=== PATIENT | male | born 1965 | race African-American/Black ===

== ENCOUNTER 2016-09-10 13:25 | Inpatient (IN) | payer OTHER ==
[2016-09-10] MEDS ORDERED: LORAZEPAM CARPU-JECT 2 MG/ML DISP.SYRIN ONE (13:38)
[2016-09-10] MEDS ORDERED: diazePAM CARPU-JECT 10 MG/2 ML DISP.SYRIN ONE ×5 (13:42→16:08)
[2016-09-10] MEDS ORDERED: diazePAM CARPU-JECT 10 MG/2 ML DISP.SYRIN IM ONE (13:48)
--- NOTE | 2016-09-10 13:48 | PDOC ---
History of Present Illness - History of Present Illness Initial Comments: 09/10/16 14:36 The patient is a 51 year old male, with a significant past medical history of asthma, hypertension, seizure disorder (last episode 1 year ago), anxiety, and polysubstance abuse, who presents to the emergency department from [facility] for hypertension and mid-back pain s/p falling out of his chair today. As per ems, the patient's fall was witnessed and the patient denies hitting his head. The patient was admitted to [facility] for heroin, cocaine and alcohol detox this week. As per EMS, the patient was 190/80 in route to the ED today. Upon patient arrival, he was describing his pain to the RN when he began to actively seize. Allergies: NKDA Social history: alcohol, cocaine, and heroin abuse <Suma Montes - Last Filed: 09/10/16 18:37> <Patito Price - Last Filed: 09/12/16 10:21> - General Chief Complaint: Injury Stated Complaint: FALL Time Seen by Provider: 09/10/16 13:35 Past History <Suma Montes - Last Filed: 09/10/16 18:37> - Past Medical History Asthma: Yes (Pt is on MDI) Cardiac Disorders: No COPD: No Diabetes: No GI Disorders: No Disorders: No HTN: Yes (on meds.) Kidney Stones: No Suicide Attempt (Hx): No Seizures: Yes (pt's last seizure was 1 yr ago.) Thyroid Disease: No - Reproductive History Testicular Surgery: No - Psycho/Social/Smoking Cessation Hx Anxiety: Yes Suicidal Ideation: No Smoking History: Current every day smoker Have you smoked in the past 12 months: Yes Number of Cigarettes Smoked Daily: 20 Information on smoking cessation initiated: Yes 'Breaking Loose' booklet given: 09/10/16 Hx Alcohol Use: Yes Drug/Substance Use Hx: Yes Substance Use Type: Alcohol, Cocaine, Heroin Hx Substance Use Treatment: Yes (2015 UNKNOWN LOCATION) <Patito Price - Last Filed: 09/12/16 10:21> - Past Medical History Allergies/Adverse Reactions: Allergies Allergy/AdvReac Type Severity Reaction Status Date / Time shellfish derived Allergy Severe Rash Verified 09/10/16 13:30 Home Medications: Ambulatory Orders Albuterol Sulfate Inhaler - [Ventolin Hfa Inhaler -] 2 inh PO Q4H PRN 09/10/16 Clonidine HCl [Catapres -] 0.1 mg PO BID 09/10/16 Darunavir Ethanolate [Prezista -] 800 mg PO DAILY 09/10/16 Emtricitabine/Tenofovir [Truvada] 1 tab PO DAILY 09/10/16 Gabapentin [Neurontin -] 300 mg PO Q8H 09/10/16 Phenobarbital - 30 mg PO BID 09/10/16 Phenytoin Na Extended [Dilantin -] 300 mg PO DAILY 09/10/16 Ritonavir [Norvir -] 100 mg PO DAILY 09/10/16 Sulfamethoxazole/Trimethoprim [Bactrim Ds -] 1 tab PO DAILY 09/10/16 Review of Systems - Review of Systems Able to Perform ROS?: Yes Comments:: 09/10/16 14:36 GENERAL/CONSTITUTIONAL: No fever or chills. No weakness. HEAD, EYES, EARS, NOSE AND THROAT: No change in vision. No ear pain or discharge. No sore throat. CARDIOVASCULAR: No chest pain or shortness of breath. RESPIRATORY: No cough, wheezing, or hemoptysis. GASTROINTESTINAL: No nausea, vomiting, diarrhea or constipation. GENITOURINARY: No dysuria, frequency, or change in urination. MUSCULOSKELETAL: (+) centralized upper back pain. No joint or muscle swelling. No neck pain. SKIN: No rash NEUROLOGIC: No headache, vertigo, loss of consciousness, or change in strength/ sensation. ENDOCRINE: No increased thirst. No abnormal weight change. HEMATOLOGIC/LYMPHATIC: No anemia, easy bleeding, or history of blood clots. ALLERGIC/IMMUNOLOGIC: No hives or skin allergy. <Suma Montes - Last Filed: 09/10/16 18:37> *Physical Exam - Vital Signs Last Vital Signs Temp Pulse Resp BP Pulse Ox 98.3 F 70 22 157/97 98 09/10/16 13:30 09/10/16 13:30 09/10/16 13:30 09/10/16 13:30 09/10/16 13:30 <Suma Montes - Last Filed: 09/10/16 18:37> - Vital Signs Last Vital Signs Temp Pulse Resp BP Pulse Ox 98.3 F 70 22 157/97 98 09/10/16 13:30 09/10/16 13:30 09/10/16 13:30 09/10/16 13:30 09/10/16 13:30 - Physical Exam Comments: GENERAL: Actively seizing on my arrival in room. HEAD: No signs of trauma EYES: PERRLA, EOMI, sclera icteric, conjunctiva clear ENT: Auricles normal inspection, hearing grossly normal, nares patent, oropharynx clear without exudates. Foaming at the mouth. NECK: Normal ROM, supple, no lymphadenopathy, JVD, or masses LUNGS: Breath sounds equal, clear to auscultation bilaterally. No wheezes, and no crackles HEART: Regular rate and rhythm, normal S1 and S2, no murmurs, rubs or gallops ABDOMEN: Soft, nontender, normoactive bowel sounds. No guarding, no rebound. No masses. +Well-healed midline abdominal incision. EXTREMITIES: Normal range of motion, no edema. No clubbing or cyanosis. No cords, erythema, or tenderness. NEUROLOGICAL: Seizing. R sided gaze preference. SKIN: Warm, Dry, normal turgor, no rashes or lesions noted. <Patito Price - Last Filed: 09/12/16 10:21> ED Treatment Course - LABORATORY CBC & Chemistry Diagram: 09/10/16 13:50 09/10/16 16:35 - Medications Given in the ED: ED Medications Discontinued Medications Generic Name Dose Route Start Last Admin Trade Name Sita PRN Reason Stop Dose Admin Diazepam 10 mg 09/10/16 13:48 09/10/16 13:45 Valium Injection - IM 09/10/16 13:49 10 mg ONCE ONE Administration Diazepam 10 mg 09/10/16 13:49 09/10/16 14:00 Valium Injection - IVPUSH 09/10/16 13:50 10 mg ONCE ONE Administration Diazepam 10 mg 09/10/16 14:05 09/10/16 14:17 Valium Injection - IVPUSH 09/10/16 14:06 10 mg ONCE ONE Administration Diazepam 10 mg 09/10/16 14:21 09/10/16 14:25 Valium Injection - IVPUSH 09/10/16 14:22 10 mg ONCE ONE Administration <Suma Montes - Last Filed: 09/10/16 18:37> - LABORATORY CBC & Chemistry Diagram: 09/10/16 13:50 09/10/16 16:35 <Patito Price - Last Filed: 09/12/16 10:21> Medical Decision Making - Critical Care Time Total Critical Care Time (minutes): 45 Critical Care Statement: The care of this patient involved high complexity decision making to prevent further life threatening deterioration of the patient 's condition and/or to evalute & treat vital organ system(s) failure or risk of failure. - Medical Decision Making 09/10/16 14:51 Late entry. Patient arrived via EMS, sent by [facility] for elevated BP, did not take his medications for over 1 week. He has history of EtOH, cocaine, and heroin abuse. He had a seizure shortly after arriving in the ED. He did not have IV access, and he was combative in his post-ictal state. He was given valium 10 mg IM x2 with some improvement in combativeness, then an IV was successfully placed by RN to the L foot. After that, an additional 10 mg of valium was given IV. He is now slightly restless, but calm in the bed. Required [place] for confusion. Labs pending. Will require admission. 09/10/16 17:51 Pt written for dose of fosphenytoin, as prior records show he was on dilantin for history of seizure disorder. I added on a phenytoin level to the labs, it is undetectable. Etiology of seizure may be alcohol withdrawal vs SZ disorder with med noncompliance. Will continue benzos, as patient has a very high tolerance and was delirious on initial exam. Will admit to ICU, high risk for DTs. <Patito Price - Last Filed: 09/12/16 10:21> *DC/Admit/Observation/Transfer <Suma Montes - Last Filed: 09/10/16 18:37> - Discharge Dispostion Admit: Yes <Patito Price - Last Filed: 09/12/16 10:21> Diagnosis at time of Disposition: Delirium tremens, Seizure disorder Alcohol withdrawal Qualifiers: Complication of substance-induced condition: with delirium Qualified Code(s): F10.231 - Alcohol dependence with withdrawal delirium - Discharge Dispostion Condition at time of disposition: Critical
[2016-09-10] MEDS ORDERED: SODIUM CHLORIDE 1,000 ML IV STA (13:49)
[2016-09-10] MEDS ORDERED: diazePAM CARPU-JECT 10 MG/2 ML DISP.SYRIN IVPUSH ONE ×4 (13:49→16:08)
[2016-09-10 14:27] LABS: BASOPHIL 1.2 % (0-2.0); EOSINOPHIL 0.6 % (0-4.5); MCHC 33.2 g/dl (32.0-35.9); MEAN CELL VOLUME 99.4 fl (80-96); MEAN PLT VOLUME 9.1 fl (7.5-11.1); NEUTROPHILS 32.4 % (42.8-82.8); PLATELET COUNT 248 K/MM3 (134-434); RDW 13.6 % (11.9-15.9); WHITE BLOOD COUNT 2.6 K/mm3 (4.0-10.0)
[2016-09-10 14:42] LABS: INR 1.04 (0.82-1.09); PROTHROMBIN TIME (PATIENT) 11.4 SEC (9.98-11.88)
[2016-09-10 15:57] LABS: URINE APPEARANCE CLEAR; URINE BILIRUBIN NEGATIVE (NEGATIVE); URINE BLOOD NEGATIVE (NEGATIVE); URINE COLOR YELLOW; URINE GLUCOSE (UA) 1+ (NEGATIVE); URINE KETONE TRACE (NEGATIVE); URINE LEUK ESTERASE NEGATIVE (NEGATIVE); URINE NITRITE NEGATIVE (NEGATIVE); URINE UROBILINOGEN 2.0 E.U/dl E.U./dl (0.2-1.0)
[2016-09-10 16:00] LABS: URINE PROTEIN 1+ (NEGATIVE)
[2016-09-10 16:03] LABS: URINE MUCUS RARE; URINE RBC 2 /hpf (0-3); URINE WBC 1 /hpf (3-5)
[2016-09-10 16:12] LABS: URINE MARIJUANA THC NEGATIVE ng/ml (CUTOFF=50)
[2016-09-10] MEDS ORDERED: FOLIC ACID INJECTION - 1 MG, THIAMINE HCL 100 MG, MULTIVIT INJECTION ADULT 10 ML in SOD... IVPB ONE (17:07)
[2016-09-10 17:41] LABS: ALBUMIN 3.2 g/dl (3.4-5.0); ALK PHOS 138 U/L (45-117); ANION GAP 6 (8-16); BILIRUBIN,TOTAL 0.5 mg/dL (0.2-1.0); CALCIUM 8.3 mg/dL (8.5-10.1); CO2 30 mmol/L (21-32); COCKROFT - GAULT 113.39; CREATININE 0.9 mg/dL (0.7-1.3); GLUCOSE,RANDOM 78 mg/dL (74-106); SGOT/AST 39 U/L (15-37); SGPT/ALT 38 U/L (12-78); TOT PROT 7.3 g/dl (6.4-8.2)
[2016-09-10] MEDS ORDERED: FOSPHENYTOIN SODIUM 1,000 MG in SODIUM CHLORIDE 100 ML IVPB ONE (17:48)
--- NOTE | 2016-09-10 19:18 | HP ---
CHIEF COMPLAINT: seizures, polysubstance PCP: none HISTORY OF PRESENT ILLNESS: 51 yr old man with hx of seizure d/o, ETOH/heroin/cocaine abuse, asthma, HIV, Hep C referred from [facility] for elevated BP and who sustained a seizure in the ED. Says he was going to detox when he was brought here. Last drink 2 days ago, last clonidine use 2 days ago. Says he takes phenobarbital daily. denies fever, cough, chest pain, sob, headache, abdominal pain. Patient is lethargic and difficult to keep aroused. Chart reviewed for further information. ER course was notable for: (1) seizure - 1 episode treated with valium 50mg IVPB (2) head CT negative for hemorrhage/mass PAST MEDICAL HISTORY: Seizure disorder HIV asthma HIV (dxed 1996) Hep C Polysubstance abuse: cocaine, heroin, etoh Neuropathy PAST SURGICAL HISTORY: Social History: Smoking: current everyday smoker, 20/cigs per day Alcohol: ETOH abuse, Drugs: cocaine (smoking), heroin(inhalation), etoh Family History: Allergies shellfish derived Allergy (Severe, Verified 09/10/16 13:30) Rash HOME MEDICATIONS: Home Medications Last prescribed 08/21/16 by Angela Ly MD (ID @ [facility]) - Truvada 200-300 mg tablet 1tab po qd - Prezista 800mg 1t po qd - Norvir 100mg 1t po qd - Flomax extended release 1C Last prescribed 07/18/16 by Angela Ly MD - Lisinopril 10mg po 1t qd - Gabapentin 300mg po 1c BID - Albuterol sulfate 90mcg 2puffs QID prn - Zantac 300mg po 1t BID - Bactrim DS 800-160mg tablet 1t po qd - ambien 10mg tablet po q hs prn Last prescribed 07/16/2016 by Angela Busch MD - phenobarbital 32.4mg 1t po BID - dilantin extended 100mg 5capsules po qd Medication Instructions Recorded Albuterol Sulfate Inhaler - 2 inh PO Q4H PRN 09/10/16 [Ventolin Hfa Inhaler -] Clonidine HCl [Catapres -] 0.1 mg PO BID 09/10/16 Darunavir Ethanolate [Prezista -] 800 mg PO DAILY 09/10/16 Emtricitabine/Tenofovir [Truvada] 1 tab PO DAILY 09/10/16 Gabapentin [Neurontin -] 300 mg PO Q8H 09/10/16 Phenobarbital - 30 mg PO BID 09/10/16 Phenytoin Na Extended [Dilantin -] 300 mg PO DAILY 09/10/16 Ritonavir [Norvir -] 100 mg PO DAILY 09/10/16 Sulfamethoxazole/Trimethoprim 1 tab PO DAILY 09/10/16 [Bactrim Ds -] REVIEW OF SYSTEMS CONSTITUTIONAL: Absent: fever, chills, HEENT: Absent: rhinorrhea, nasal congestion, throat pain, throat swelling, difficulty swallowing, mouth swelling, CARDIOVASCULAR: Absent: chest pain, palpitations, irregular heart rate, lightheadedness RESPIRATORY: Absent: cough, shortness of breath, GASTROINTESTINAL: Absent: abdominal pain, abdominal distension, nausea, vomiting, diarrhea, constipation, GENITOURINARY: Absent: dysuria PHYSICAL EXAMINATION Vital Signs - 24 hr 09/10/16 18:00 Pulse Rate [ 68 Radial] Respiratory 20 Rate Blood Pressure 161/99 [Left Arm] O2 Sat by Pulse 100 Oximetry (%) GENERAL: lethargic,oriented to person/place. malodorous. HEAD: Normal with no signs of trauma. EYES: Pupils equal, round and reactive to light - sluggish, extraocular movements intact, sclera anicteric, conjunctiva clear. No lid lag. EARS, NOSE, THROAT: Ears normal, nares patent, oropharynx clear without exudates. Moist mucous membranes. no oral lesions, no thrush NECK: Normal range of motion, supple without lymphadenopathy, JVD, or masses. LUNGS: Breath sounds equal, rales right lower base, clear left lung. No wheezes , and no crackles. No accessory muscle use. HEART: Regular rate and rhythm, normal S1 and S2 without murmur, rub or gallop. ABDOMEN: Soft, nontender, not distended, normoactive bowel sounds, no guarding, no rebound. well-healing laparotomy scar. MUSCULOSKELETAL: Normal range of motion at all joints. able to move all joints spotaneously. UPPER EXTREMITIES: 2+ pulses, warm, well-perfused. No cyanosis. No clubbing. No peripheral edema. LOWER EXTREMITIES: 2+ pulses, warm, well-perfused. No calf tenderness. No peripheral edema. NEUROLOGICAL: Cranial nerves 2,3,4,5,6,9 intact. Normal speech. lethargic, difficult to keep aroused. facial symmetry. babinski negative SKIN: Warm, dry, normal turgor, no rashes or lesions noted, normal capillary refill. Laboratory Tests 09/10/16 09/10/16 09/10/16 13:50 13:50 13:50 WBC 2.6 L RBC 4.04 Hgb 13.4 Hct 40.2 MCV 99.4 H MCHC 33.2 RDW 13.6 Plt Count 248 MPV 9.1 Neutrophils % 32.4 L Lymphocytes % 53.0 H Monocytes % 12.8 H Eosinophils % 0.6 Basophils % 1.2 INR 1.04 Sodium Cancelled Potassium Cancelled Chloride Cancelled Carbon Dioxide Cancelled Anion Gap Cancelled BUN Cancelled Creatinine Cancelled Creat Clearance w eGFR Cancelled Random Glucose Cancelled Calcium Cancelled Magnesium Total Bilirubin Cancelled AST Cancelled ALT Cancelled Alkaline Phosphatase Cancelled Total Protein Cancelled Albumin Cancelled Lipase Cancelled Urine Color Urine Appearance Urine pH Ur Specific Evans Urine Protein Urine Glucose (UA) Urine Ketones Urine Blood Urine Nitrite Urine Bilirubin Urine Urobilinogen Ur Leukocyte Esterase Urine RBC Urine WBC Urine Mucus Opiates Screen Methadone Screen Barbiturate Screen Phenytoin Phencyclidine Screen Ur Amphetamines Screen MDMA (Ecstasy) Screen Benzodiazepines Screen Cocaine Screen U Marijuana (THC) Screen Alcohol, Quantitative Blood Type Antibody Screen Spec Expiration Date 09/10/16 09/10/16 09/10/16 13:50 13:50 14:37 WBC RBC Hgb Hct MCV MCHC RDW Plt Count MPV Neutrophils % Lymphocytes % Monocytes % Eosinophils % Basophils % INR Sodium Potassium Chloride Carbon Dioxide Anion Gap BUN Creatinine Creat Clearance w eGFR Random Glucose Calcium Magnesium Total Bilirubin AST ALT Alkaline Phosphatase Total Protein Albumin Lipase Urine Color Yellow Urine Appearance Clear Urine pH 6.0 Ur Specific Evans 1.024 Urine Protein 1+ H Urine Glucose (UA) 1+ H Urine Ketones Trace H Urine Blood Negative Urine Nitrite Negative Urine Bilirubin Negative Urine Urobilinogen 2.0 e.u/dl Ur Leukocyte Esterase Negative Urine RBC 2 Urine WBC 1 Urine Mucus Rare Opiates Screen Methadone Screen Barbiturate Screen Phenytoin Phencyclidine Screen Ur Amphetamines Screen MDMA (Ecstasy) Screen Benzodiazepines Screen Cocaine Screen U Marijuana (THC) Screen Alcohol, Quantitative Cancelled Blood Type Cancelled Antibody Screen Cancelled Spec Expiration Date Cancelled 09/10/16 09/10/16 09/10/16 14:37 16:35 16:35 WBC RBC Hgb Hct MCV MCHC RDW Plt Count MPV Neutrophils % Lymphocytes % Monocytes % Eosinophils % Basophils % INR Sodium 139 Potassium 3.8 Chloride 103 Carbon Dioxide 30 Anion Gap 6 L BUN 14 Creatinine 0.9 Creat Clearance w eGFR > 60 Random Glucose 78 Calcium 8.3 L Magnesium Total Bilirubin 0.5 AST 39 H ALT 38 Alkaline Phosphatase 138 H Total Protein 7.3 Albumin 3.2 L Lipase Urine Color Urine Appearance Urine pH Ur Specific Evans Urine Protein Urine Glucose (UA) Urine Ketones Urine Blood Urine Nitrite Urine Bilirubin Urine Urobilinogen Ur Leukocyte Esterase Urine RBC Urine WBC Urine Mucus Opiates Screen Positive Methadone Screen Negative Barbiturate Screen Positive Phenytoin Phencyclidine Screen Negative Ur Amphetamines Screen Negative MDMA (Ecstasy) Screen Negative Benzodiazepines Screen Positive Cocaine Screen Positive U Marijuana (THC) Screen Negative Alcohol, Quantitative < 5.0 Blood Type Antibody Screen Spec Expiration Date 09/10/16 09/10/16 17:15 17:15 WBC RBC Hgb Hct MCV MCHC RDW Plt Count MPV Neutrophils % Lymphocytes % Monocytes % Eosinophils % Basophils % INR Sodium Potassium Chloride Carbon Dioxide Anion Gap BUN Creatinine Creat Clearance w eGFR Random Glucose Calcium Magnesium 1.9 Total Bilirubin AST ALT Alkaline Phosphatase Total Protein Albumin Lipase Urine Color Urine Appearance Urine pH Ur Specific Evans Urine Protein Urine Glucose (UA) Urine Ketones Urine Blood Urine Nitrite Urine Bilirubin Urine Urobilinogen Ur Leukocyte Esterase Urine RBC Urine WBC Urine Mucus Opiates Screen Methadone Screen Barbiturate Screen Phenytoin < 2.5 L Phencyclidine Screen Ur Amphetamines Screen MDMA (Ecstasy) Screen Benzodiazepines Screen Cocaine Screen U Marijuana (THC) Screen Alcohol, Quantitative Blood Type Antibody Screen Spec Expiration Date ASSESSMENT/PLAN: 51 yr old man with polystance use, HIV, seizure disorder with seizure episode in ED admitted to ICU for further evaluation. - corrected ca+ : 8.9 #Seizure d/o; delirium tremons vs acute seizure episode as phenytoin level subtherapeutic - Ativan 2mg IV prn - Valium 10mg IVpush q1h prn - Dilantin extended release 100mg 5 capsules po daily - phenobarbital 32.4mg 1 tablet po bid - Gabapentin 300mg po 1 capsule BID - seizure precautions, banana bag #HIV - consider CD4 count/viral load/ ID consult - Truvada 200-300 mg tablet 1 tablet po daily - Prezista 800mg 1t po qd - Norvir 100mg 1t po qd - bactrim DS 500-160mg 1 tablet po daily #HTN - lisinopril 10mg po 1 tablet po daily #Asthma - albuterol sulfate 90mcg 2 puffs QID prn #DVT - scd's #Diet: regular Visit type - Emergency Visit Emergency Visit: Yes ED Registration Date: 09/10/16 Care time: The patient presented to the Emergency Department on the above date and was hospitalized for further evaluation of their emergent condition. - New Patient This patient is new to me today: Yes Date on this admission: 09/10/16 - Critical Care Critical Care patient: No
--- NOTE | 2016-09-10 20:13 | PN ---
<Alesha Bolivar - Last Filed: 09/10/16 20:12> Teaching Attending Note Name of Resident: Toy Felix <Daisy Fernandez - Last Filed: 09/11/16 01:41> Teaching Attending Note ATTENDING PHYSICIAN STATEMENT I saw and evaluated the patient. I reviewed the resident's note and discussed the case with the resident. I agree with the resident's findings and plan as documented. SUBJECTIVE: 51 yo M presents fro [facility] with seizure in ED, HTN, and mid-back pain s/p mechanical fall earlier today. Documentation reviewed and as epr Hx taken from ED and resident, notes patient admitted for seizure and found to have urine tox positive for polysubstance including cocaine benzos and barbiturates. Patient denies head trauma and LOC in ED. Patient states in ED he was recently admitted to [facility] for heroin, cocaine and ETOH detox. PMHx: asthma, hypertension, seizure disorder (last prior episode 1 year ago), anxiety, HIV, HEP C and polysubstance abuse OBJECTIVE: Last Vital Signs Temp Pulse Resp BP Pulse Ox 98.5 F 74 20 136/79 100 09/10/16 21:55 09/10/16 21:55 09/10/16 22:15 09/10/16 21:55 09/10/16 22:15 GENERAL: Patient is somnolent, in no acute distress HEENT: HEENT: normocephalic, atraumatic LUNGS: Within normal limits, Right Lower Lobe rales HEART: Regular rate and rhythm. ABDOMEN: Soft, nontender, normoactive bowel sounds. No guarding, no rebound. No masses. Surgical laparotomy scar. EXTREMITIES: Normal inspection, no edema. No clubbing or Cyanosis. NEUROLOGICAL: No gross neurological deficits. SKIN: Warm, Dry, normal turgor, no rashes or lesions noted. CBCD WBC 2.6 K/mm3 (4.0-10.0) L 09/10/16 13:50 RBC 4.04 M/mm3 (4.00-5.60) 09/10/16 13:50 Hgb 13.4 GM/dL (11.7-16.9) 09/10/16 13:50 Hct 40.2 % (35.4-49) 09/10/16 13:50 MCV 99.4 fl (80-96) H 09/10/16 13:50 MCHC 33.2 g/dl (32.0-35.9) 09/10/16 13:50 RDW 13.6 % (11.9-15.9) 09/10/16 13:50 Plt Count 248 K/MM3 (134-434) 09/10/16 13:50 MPV 9.1 fl (7.5-11.1) 09/10/16 13:50 CMP Sodium 139 mmol/L (136-145) 09/10/16 16:35 Potassium 3.8 mmol/L (3.5-5.1) 09/10/16 16:35 Chloride 103 mmol/L (98-107) 09/10/16 16:35 Carbon Dioxide 30 mmol/L (21-32) 09/10/16 16:35 Anion Gap 6 (8-16) L 09/10/16 16:35 BUN 14 mg/dL (7-18) 09/10/16 16:35 Creatinine 0.9 mg/dL (0.7-1.3) 09/10/16 16:35 Creat Clearance w eGFR > 60 (>60) 09/10/16 16:35 Calcium 8.3 mg/dL (8.5-10.1) L 09/10/16 16:35 Total Bilirubin 0.5 mg/dL (0.2-1.0) 09/10/16 16:35 AST 39 U/L (15-37) H 09/10/16 16:35 ALT 38 U/L (12-78) 09/10/16 16:35 Alkaline Phosphatase 138 U/L (45-117) H 09/10/16 16:35 Total Protein 7.3 g/dl (6.4-8.2) 09/10/16 16:35 Albumin 3.2 g/dl (3.4-5.0) L 09/10/16 16:35 Assessment and Plan Admitted to ICU for seizures noncompliant with medication possibly secondary to DT. -Ativan PRN -Valium PRN -CT head -Dilantin level -continue Dilantin HIV -continue Norvir, Truvada, and Prezista HTN -continue clonidine 0.1 mg BID HIV/AIDS -bactrim 1 tablet daily -Get CD4 count Documentation prepared by Daisy Fernandez, acting as director global medical affairs for Alesha Bolivar M.D.
[2016-09-10] MEDS ORDERED: CHLORHEXIDINE GLUCONATE 4% CLEANSER FOR DECOLONIZATION TP SCH (22:00)
--- NOTE | 2016-09-10 22:18 | CONSULT ---
Consult - text type - Consultation Consultation Note: PULM/CCM Pt seen and examined in ICU CC: seizure, poly pharm withdrawal HPI: Mr Russ is a 51 y/o man with hx of HIV (on ARV, unk last CD4/VL) HTN, Seizure disorder, Polysubstance abuse (heroin, cocaine, ETOH) now admitted for seizure in ED c/f acute ETOH withdrawal. Pt was admitted to [facility] for detox on Morning of 09/09. He used cocaine and heroin just prior to going in to [facility]. While he was in detox he fell out of chair without significant trauma or striking head. He was noted to have elevated BP and was sent in to ED via EMS. Of note pt relates he was note given his clonidine while there. Shortly after arrival in ED pt had short GTC seizure. He was post ictal and combative for which her received multple doses of benzodiazipines (ativan and valium). He required physical restraint with jesus vest as well. His mental status improved. CT head was unrevealing. Pt was transferred to ICU for concern for ETOH withdrawal/DT. PMHX: Htn HIV on ARV (Dr Guevara in [place]) polysubstance abuse seizure disorder PSHX: had significant abd surgical scars but cannot relate what surgery he had...? trauma? Soc: not working, Polysubstance abuse Ambulatory Orders Albuterol Sulfate Inhaler - [Ventolin Hfa Inhaler -] 2 inh PO Q4H PRN 09/10/16 Clonidine HCl [Catapres -] 0.1 mg PO BID 09/10/16 Darunavir Ethanolate [Prezista -] 800 mg PO DAILY 09/10/16 Emtricitabine/Tenofovir [Truvada] 1 tab PO DAILY 09/10/16 Gabapentin [Neurontin -] 300 mg PO Q8H 09/10/16 Phenobarbital - 30 mg PO BID 09/10/16 Phenytoin Na Extended [Dilantin -] 300 mg PO DAILY 09/10/16 Ritonavir [Norvir -] 100 mg PO DAILY 09/10/16 Sulfamethoxazole/Trimethoprim [Bactrim Ds -] 1 tab PO DAILY 09/10/16 Active Medications Chlorhexidine Gluconate (Hibiclens For Decolonization -) 1 applic TP HS TERRENCE Folic Acid 1 mg/ Thiamine HCl 100 mg/ Multivitamins/Minerals 10 ml/ Sodium Chloride 1,000 mls @ 125 mls/hr IVPB ONCE ONE Stop: 09/11/16 01:06 Last Admin: 09/10/16 18:15 Dose: 125 mls/hr Mupirocin (Bactroban Ointment (For Decolonization) -) 1 applic NS BID TERRENCE Stop: 09/15/16 21:59 PE: Neuro: awake, alert, oriented HEENT: PERRL, EOMI PULM: no distress, clear CV: RRR, no m/r/g appreciated ABD; soft, NT, ND, + BS, well healed surg scars EXT: w/w/p, + pulses Skin: no rash CIWA score currently 1 A/ 51 y/o man with hx of polysubstance abuse undergoing detox at [facility] sent to ED for HTN, withnessed GTC sz c/f acute withdrawal P/ -valium PRN for CIWA > 8 -restart AE, ARV in am -restart clonidine in am -reg diet -DVT prophy -if remains without signs of significant withdrawal can go to floor in am Rivera Martinez ACNP [id number]
[2016-09-10] MEDS ORDERED: diazePAM CARPU-JECT 10 MG/2 ML DISP.SYRIN IVPUSH PRN (22:41)
[2016-09-10 22:47] VITALS: BMI 29.9
[2016-09-10] MEDS: MUPIROCIN 2% TOPICAL OINTMENT FOR DECOLONIZATION NS SCH (23:36)
[2016-09-11] MEDS ORDERED: LORAZEPAM CARPU-JECT 2 MG/ML DISP.SYRIN IVPUSH PRN ×2 (02:10→14:05)
[2016-09-11] MEDS ORDERED: ALBUTEROL SO4 6.7 GM HFA INHALER IH PRN ×2 (04:29→14:05)
[2016-09-11] MEDS ORDERED: cloNIDine HCL 0.1 MG TABLET PO SCH (07:00)
[2016-09-11] MEDS ORDERED: PT OWN MED DRAWER 7, Y5N ONE (09:34)
[2016-09-11] MEDS: MUPIROCIN 2% TOPICAL OINTMENT FOR DECOLONIZATION NS SCH ×2 (09:43→22:12)
[2016-09-11] MEDS ORDERED: GABAPENTIN 300 MG CAPSULE (FP) PO SCH (10:00)
[2016-09-11] MEDS ORDERED: PHENYTOIN NA EXTENDED 100 MG CAPSULE (FP) PO SCH (10:00)
[2016-09-11] MEDS ORDERED: RITONAVIR 100 MG TABLET PO SCH (10:00)
[2016-09-11] MEDS ORDERED: SULFAMETHOXAZOLE/TRIMETHOPRIM 800MG/160MG D.S. TABLET PO SCH (10:00)
[2016-09-11] MEDS ORDERED: DARUNAVIR ETHANOLATE 800 MG TAB PO SCH (10:00)
[2016-09-11] MEDS ORDERED: PHENobarbital 30 MG TABLET PO SCH (10:00)
[2016-09-11] MEDS ORDERED: EMTRICITABINE 200MG/TENOFOVIR 300MG PO SCH (10:00)
--- NOTE | 2016-09-11 12:30 | EKG ---
Test Reason : Blood Pressure : / mmHG Vent. Rate : 079 BPM Atrial Rate : 079 BPM P-R Int : 148 ms QRS Dur : 090 ms QT Int : 398 ms P-R-T Axes : 044 -22 014 degrees QTc Int : 456 ms NORMAL SINUS RHYTHM CANNOT RULE OUT ANTERIOR INFARCT , AGE UNDETERMINED ABNORMAL ECG NO PREVIOUS ECGS AVAILABLE Confirmed by DARNELL CHU MD ([id number]) on 09/11/2016 12:30:16 PM Referred By: Confirmed By:DARNELL CHU MD
--- NOTE | 2016-09-11 13:38 | PN ---
Teaching Attending Note Name of Resident: Sharan Lowery ATTENDING PHYSICIAN STATEMENT I saw and evaluated the patient. I reviewed the resident's note and discussed the case with the resident. I agree with the resident's findings and plan as documented. SUBJECTIVE: Pt seen and examined in the ICU. No events overnight, no seizures noted. OBJECTIVE: Last Vital Signs Temp Pulse Resp BP Pulse Ox 98.5 F 82 18 139/99 100 09/11/16 06:00 09/11/16 12:00 09/11/16 12:00 09/11/16 12:00 09/10/16 22:15 Intake & Output 09/08/16 09/09/16 09/10/16 09/11/16 23:59 23:59 23:59 23:59 Intake Total 240 480 Output Total 300 1050 Balance -60 -570 Weight 191 lb 8 oz Gen: NAD at rest Heart: RRR Lung: decreased breath sounds at the bases Abd: soft, nontender Ext: no edema CBC, BMP 09/10/16 13:50 09/10/16 16:35 Active Medications Albuterol Sulfate (Ventolin Hfa Inhaler -) 2 puff IH Q4H PRN PRN Reason: ASTHMA Chlorhexidine Gluconate (Hibiclens For Decolonization -) 1 applic TP HS [facility] Last Admin: 09/10/16 23:36 Dose: 1 applic Clonidine (Catapres -) 0.1 mg PO DAILY@0700 [facility] Last Admin: 09/11/16 06:19 Dose: 0.1 mg Darunavir (Prezista -) 800 mg PO DAILY [facility] Diazepam (Valium Injection -) 10 mg IVPUSH Q1H PRN PRN Reason: AGITATION Emtricitabine/Tenofovir (Truvada) 1 tab PO DAILY [facility] Last Admin: 09/11/16 09:41 Dose: 1 tab Gabapentin (Neurontin -) 300 mg PO BID [facility] Last Admin: 09/11/16 09:40 Dose: 300 mg Lorazepam (Ativan Injection -) 2 mg IVPUSH Q6H PRN PRN Reason: Seizure Mupirocin (Bactroban Ointment (For Decolonization) -) 1 applic NS BID [facility] Stop: 09/15/16 21:59 Last Admin: 09/11/16 09:43 Dose: 1 applic Phenobarbital (Phenobarbital -) 30 mg PO BID [facility] Last Admin: 09/11/16 09:39 Dose: 30 mg Phenytoin Sodium (Dilantin -) 500 mg PO DAILY [facility] Last Admin: 09/11/16 09:40 Dose: 500 mg Ritonavir (Norvir -) 100 mg PO DAILY [facility] Last Admin: 09/11/16 09:40 Dose: 100 mg Trimethoprim/Sulfamethoxazole (Bactrim Ds -) 1 each PO DAILY [facility] Last Admin: 09/11/16 09:42 Dose: 1 each ASSESSMENT AND PLAN: Breakthrough Seizure Polysubstance Abuse r/o Alcohol Withdrawal HIV Hep C HTN - continue antiepileptics - seizure precautions - addiction consult - monitor for withdrawal symptoms - continue ART - can monitor on floor
--- NOTE | 2016-09-11 13:41 | PN ---
Physical Exam: SUBJECTIVE: Patient seen and examined Pt is awake, alert and fully oriented No s/s of acute distress no dizziness or confusion No focal weakness no chest pain, palpitation OBJECTIVE: Vital Signs Period Temp Pulse Resp BP Sys/Lala Pulse Ox Last 24 Hr 98.2 F-98.5 F 68-82 14-20 122-161/79-107 100-100 GENERAL: The patient is awake, alert, and fully oriented, in no acute distress. HEAD: Normal with no signs of trauma. NECK: Trachea midline, full range of motion, supple. LUNGS: Breath sounds equal, clear to auscultation bilaterally, no wheezes, no crackles, no accessory muscle use. HEART: Regular rate and rhythm, S1, S2 without murmur, rub or gallop. ABDOMEN: Soft, nontender, nondistended, normoactive bowel sounds, no guarding, no rebound, no hepatosplenomegaly, no masses. EXTREMITIES: 2+ pulses, warm, well-perfused, no edema. NEUROLOGICAL:. Normal speech, gait not observed. No tremors PSYCH: Normal mood, normal affect. SKIN: Warm, dry, normal turgor, no rashes or lesions noted Active Medications Generic Name Dose Route Start Last Admin Trade Name Freq PRN Reason Stop Dose Admin Albuterol Sulfate 2 puff 09/11/16 04:29 Ventolin Hfa Inhaler - IH Q4H PRN ASTHMA Chlorhexidine Gluconate 1 applic 09/10/16 22:00 09/10/16 23:36 Hibiclens For Decolonization - TP 1 applic HS [facility] Administration Clonidine 0.1 mg 09/11/16 07:00 09/11/16 06:19 Catapres - PO 0.1 mg DAILY@0700 [facility] Administration Darunavir 800 mg 09/11/16 10:00 Prezista - PO DAILY [facility] Diazepam 10 mg 09/10/16 22:41 Valium Injection - IVPUSH Q1H PRN AGITATION Emtricitabine/Tenofovir 1 tab 09/11/16 10:00 09/11/16 09:41 Truvada PO 1 tab DAILY [facility] Administration Gabapentin 300 mg 09/11/16 10:00 09/11/16 09:40 Neurontin - PO 300 mg BID [facility] Administration Lorazepam 2 mg 09/11/16 02:10 Ativan Injection - IVPUSH Q6H PRN Seizure Mupirocin 1 applic 09/10/16 22:00 09/11/16 09:43 Bactroban Ointment (For Decolonization) - NS 09/15/16 21:59 1 applic BID [facility] Administration Phenobarbital 30 mg 09/11/16 10:00 09/11/16 09:39 Phenobarbital - PO 30 mg BID [facility] Administration Phenytoin Sodium 500 mg 09/11/16 10:00 09/11/16 09:40 Dilantin - PO 500 mg DAILY [facility] Administration Ritonavir 100 mg 09/11/16 10:00 09/11/16 09:40 Norvir - PO 100 mg DAILY [facility] Administration Trimethoprim/Sulfamethoxazole 1 each 09/11/16 10:00 09/11/16 09:42 Bactrim Ds - PO 1 each DAILY [facility] Administration ASSESSMENT/PLAN: 51 year old male with pmh of polysubstance abuse, HIV , Seizure disorder from [place] is admitted s/p seizure. Seizure likely due to non compliance r/o alcohol withdrawal/Delirium tremens Last alcohol drink, cocaine and heroin use was 3 days ago CIWA score 0 No librium taper needed Ativan 2 mg Prn IV Valium 10 mg IV prn Dilantin 500mg po daily Phenobarbital 30mg po daily gabapentin 300mg po BID seizure precaution Follow Dilantin level On clonidine PO daily for Opiod withdrawal Consult Dr Curry HIV Pt restarted on HAART Continue Truvada, prezista, Norvir Continue bactrim 1 tab PO daily Asthma Albuterol PRN HTN Lisinoprill 10mg PO daily FEN Fluid: none Electrolytes: none Nutrition: regular diet DVT prophylaxis: SCD Disposition: Transfer to floor, watch overnight no s/s of withdrawal Visit type - Emergency Visit Emergency Visit: Yes ED Registration Date: 09/10/16 Care time: The patient presented to the Emergency Department on the above date and was hospitalized for further evaluation of their emergent condition. - New Patient This patient is new to me today: Yes Date on this admission: 09/11/16 - Critical Care Critical Care patient: Yes Total Critical Care Time (in minutes): 35 Critical Care Statement: The care of this patient involved high complexity decision making to prevent further life threatening deterioration of the patient 's condition and/or to evalute & treat vital organ system(s) failure or risk of failure. - Discharge Referral Referred to [facility] Med P.C.: No
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
[2016-09-11] MEDS ORDERED: METHADONE HCL 10 MG TABLET (FOR DETOX USE ONLY) PO ONE ×2 (14:23→17:00)
[2016-09-11] MEDS ORDERED: diazePAM 5 MG TABLET PO ONE ×2 (14:23→17:00)
--- NOTE | 2016-09-11 14:32 | PN ---
[facility] Progress Note (SOAP) Subjective: Pt. was transferred from [facility] admissions to ED at [facility] because he fell and BP was 201/106. While in ED he had a seizure and was admitted. Objective: 09/11/16 14:30 Vital Signs - 8 hr 09/11/16 09/11/16 08:00 12:00 Pulse Rate 78 82 Respiratory 18 18 Rate Blood Pressure 144/98 139/99 Laboratory Last Values WBC 2.6 K/mm3 (4.0-10.0) L 09/10/16 13:50 RBC 4.04 M/mm3 (4.00-5.60) 09/10/16 13:50 Hgb 13.4 GM/dL (11.7-16.9) 09/10/16 13:50 Hct 40.2 % (35.4-49) 09/10/16 13:50 MCV 99.4 fl (80-96) H 09/10/16 13:50 MCHC 33.2 g/dl (32.0-35.9) 09/10/16 13:50 RDW 13.6 % (11.9-15.9) 09/10/16 13:50 Plt Count 248 K/MM3 (134-434) 09/10/16 13:50 MPV 9.1 fl (7.5-11.1) 09/10/16 13:50 Neutrophils % 32.4 % (42.8-82.8) L 09/10/16 13:50 Lymphocytes % 53.0 % (8-40) H 09/10/16 13:50 Monocytes % 12.8 % (3.8-10.2) H 09/10/16 13:50 Eosinophils % 0.6 % (0-4.5) 09/10/16 13:50 Basophils % 1.2 % (0-2.0) 09/10/16 13:50 INR 1.04 (0.82-1.09) 09/10/16 13:50 Sodium 139 mmol/L (136-145) 09/10/16 16:35 Potassium 3.8 mmol/L (3.5-5.1) 09/10/16 16:35 Chloride 103 mmol/L (98-107) 09/10/16 16:35 Carbon Dioxide 30 mmol/L (21-32) 09/10/16 16:35 Anion Gap 6 (8-16) L 09/10/16 16:35 BUN 14 mg/dL (7-18) 09/10/16 16:35 Creatinine 0.9 mg/dL (0.7-1.3) 09/10/16 16:35 Creat Clearance w eGFR > 60 (>60) 09/10/16 16:35 Random Glucose 78 mg/dL (74-106) 09/10/16 16:35 Calcium 8.3 mg/dL (8.5-10.1) L 09/10/16 16:35 Magnesium 1.9 mg/dL (1.8-2.4) 09/10/16 17:15 Total Bilirubin 0.5 mg/dL (0.2-1.0) 09/10/16 16:35 AST 39 U/L (15-37) H 09/10/16 16:35 ALT 38 U/L (12-78) 09/10/16 16:35 Alkaline Phosphatase 138 U/L (45-117) H 09/10/16 16:35 Total Protein 7.3 g/dl (6.4-8.2) 09/10/16 16:35 Albumin 3.2 g/dl (3.4-5.0) L 09/10/16 16:35 Lipase Cancelled 09/10/16 13:50 Urine Color Yellow 09/10/16 14:37 Urine Appearance Clear 09/10/16 14:37 Urine pH 6.0 (5.0-8.0) 09/10/16 14:37 Ur Specific [place] 1.024 (1.001-1.035) 09/10/16 14:37 Urine Protein 1+ (NEGATIVE) H 09/10/16 14:37 Urine Glucose (UA) 1+ (NEGATIVE) H 09/10/16 14:37 Urine Ketones Trace (NEGATIVE) H 09/10/16 14:37 Urine Blood Negative (NEGATIVE) 09/10/16 14:37 Urine Nitrite Negative (NEGATIVE) 09/10/16 14:37 Urine Bilirubin Negative (NEGATIVE) 09/10/16 14:37 Urine Urobilinogen 2.0 e.u/dl E.U./dl (0.2-1.0) 09/10/16 14:37 Ur Leukocyte Esterase Negative (NEGATIVE) 09/10/16 14:37 Urine RBC 2 /hpf (0-3) 09/10/16 14:37 Urine WBC 1 /hpf (3-5) 09/10/16 14:37 Urine Mucus Rare 09/10/16 14:37 Opiates Screen Positive ng/ml (MJNAGB=352) 09/10/16 14:37 Methadone Screen Negative ng/ml (UUMVBL=185) 09/10/16 14:37 Barbiturate Screen Positive ng/ml (ZXUIIO=709) 09/10/16 14:37 Phenytoin < 2.5 ug/ml (10.0-20.0) L 09/10/16 17:15 Phencyclidine Screen Negative ng/ml (CUTOFF=25) 09/10/16 14:37 Ur Amphetamines Screen Negative ng/ml (UONEAF=775) 09/10/16 14:37 MDMA (Ecstasy) Screen Negative ng/ml (IRIXJS=033) 09/10/16 14:37 Benzodiazepines Screen Positive ng/ml (XCSUZR=495) 09/10/16 14:37 Cocaine Screen Positive ng/ml (GLRKIH=716) 09/10/16 14:37 U Marijuana (THC) Screen Negative ng/ml (CUTOFF=50) 09/10/16 14:37 Alcohol, Quantitative < 5.0 mg/dl (0-5) 09/10/16 16:35 Blood Type Cancelled 09/10/16 13:50 Antibody Screen Cancelled 09/10/16 13:50 Spec Expiration Date Cancelled 09/10/16 13:50 labs noted,urine drug screen unchanged from result at [facility] Assessment: 09/11/16 14:31 Heroin dependence Chronic Alcoholism Benzodiazepine dependence Plan: Start detox with methadone and valium
[2016-09-11] MEDS ORDERED: METHADONE HCL 10 MG TABLET ONE (17:03)
[2016-09-11] MEDS ORDERED: cloNIDine HCL 0.1 MG TABLET PO ONE (17:49)
--- NOTE | 2016-09-11 18:48 | PN ---
Teaching Attending Note Name of Resident: Redd Lynn ATTENDING PHYSICIAN STATEMENT I saw and evaluated the patient. I reviewed the resident's note and discussed the case with the resident. I agree with the resident's findings and plan as documented. SUBJECTIVE:no repeated tonic/clonic like activity since yesterday. pt states he has no complaints. was diagnosed with seizures as a child and not related to ETOH. not compliant with medications because hes "fed up" with having to be on so many pills. been few months. denies CP, SOB,fever, chills, N/V/C/D, auditory /visual/tactile hallucinations. pt is refusing repeat lab work. OBJECTIVE: Last Vital Signs Temp Pulse Resp BP Pulse Ox 98.5 F 96 H 22 144/96 100 09/11/16 06:00 09/11/16 18:15 09/11/16 18:15 09/11/16 18:15 09/11/16 16:34 General NAD CV S1 S2 RRR no murmur/rub/gallop Lungs CTA B/L no wheezing/rales/rhonchi Abdomen soft NT/nD Extremities no tremors ASSESSMENT AND PLAN: 51yo m iwth PMH continuous polysubstance abuse, seizures, HIV, HCV presented to the ER and was admitted for further evaluation of their emergent condition 1. Seizure- due to medication non-compliance. phenytoin level subtherapeutic. bolus given in ER and re-started on home medications. will cont to monitor additional 24H for seizure like activity. ativan prn seizure. seizure precautions. 2. continuous polysubstance abuse- CIWA 0. COWS 0. no indication for detox at this point as not showing withdrawal symptoms. pt states he wants detox and wants inpatient rehab. consult detox specialist for evaluation 3. HIV- not compliant with home medications. will hold HARRT therapy at this time as he is not complaint and will cause resistance. encourage to follow up in HIV clinic for re-initiation of medications. will cont bactrim for PCP prophylaxis. 4. DVT ppx- EAM 5. stable for transfer to medical floors The care of this patient involved high complexity decision making to prevent further life threatening deterioration of the patient's condition and/or to evalute & treat vital organ system(s) failure or risk of failure. 38 minutes critical care time
[2016-09-11] MEDS ORDERED: NICOTINE POLACRILEX 2 MG GUM BUC PRN (21:58)
[2016-09-11] MEDS ORDERED: CHLORHEXIDINE GLUCONATE 4% CLEANSER FOR DECOLONIZATION TP SCH (22:00)
[2016-09-11] MEDS: NICOTINE 14 MG/24 HOURS TOPICAL PATCH TD SCH (22:09)
[2016-09-11] MEDS: PHENobarbital 30 MG TABLET PO SCH (22:10)
[2016-09-11] MEDS: LISINOPRIL 10 MG TABLET (FP) PO SCH (22:11)
[2016-09-11] MEDS: diazePAM 5 MG TABLET PO SCH (22:11)
[2016-09-11] MEDS: GABAPENTIN 300 MG CAPSULE (FP) PO SCH (22:11)
[2016-09-11] MEDS: cloNIDine HCL 0.1 MG TABLET PO SCH (22:11)
[2016-09-11] MEDS ORDERED: METHADONE HCL 10 MG TABLET PO ONE (23:00)
[2016-09-11] MEDS: diazePAM 5 MG TABLET PO PRN (23:38)
[2016-09-12] MEDS ORDERED: hydrOXYzine PAMOATE 50 MG CAPSULE (FP) PO ONE (01:08)
[2016-09-12] MEDS: diazePAM 5 MG TABLET PO PRN (06:31)
[2016-09-12] MEDS: diazePAM 5 MG TABLET PO SCH (06:31)
[2016-09-12] MEDS ORDERED: cloNIDine HCL 0.1 MG TABLET PO SCH (07:00)
[2016-09-12] MEDS ORDERED: PT OWN MED DRAWER 7, Y5N ONE (09:31)
[2016-09-12] MEDS: GABAPENTIN 300 MG CAPSULE (FP) PO SCH (09:33)
[2016-09-12] MEDS: cloNIDine HCL 0.1 MG TABLET PO SCH (09:33)
[2016-09-12] MEDS: PHENobarbital 30 MG TABLET PO SCH (09:33)
[2016-09-12] MEDS: NICOTINE 14 MG/24 HOURS TOPICAL PATCH TD SCH (09:33)
[2016-09-12] MEDS: LISINOPRIL 10 MG TABLET (FP) PO SCH (09:33)
[2016-09-12] MEDS: MUPIROCIN 2% TOPICAL OINTMENT FOR DECOLONIZATION NS SCH (09:34)
[2016-09-12] MEDS ORDERED: guaiFENesin 200 MG/10 ML 10 ML UNIT-DOSE CUPS PO PRN (09:54)
[2016-09-12] MEDS ORDERED: SULFAMETHOXAZOLE/TRIMETHOPRIM 800MG/160MG D.S. TABLET PO SCH (10:00)
[2016-09-12] MEDS ORDERED: PHENYTOIN NA EXTENDED 100 MG CAPSULE (FP) PO SCH (10:00)
[2016-09-12] MEDS ORDERED: RITONAVIR 100 MG TABLET PO SCH (10:00)
[2016-09-12] MEDS ORDERED: METHADONE HCL 10 MG TABLET PO SCH (10:00)
[2016-09-12] MEDS ORDERED: EMTRICITABINE 200MG/TENOFOVIR 300MG PO SCH (10:00)
[2016-09-12] MEDS ORDERED: DARUNAVIR ETHANOLATE 800 MG TAB PO SCH (10:00)
[2016-09-12 11:21] VITALS: BP 135/92; PULSE 81; TEMP 98.3
--- NOTE | 2016-09-12 12:36 | PN ---
Teaching Attending Note Name of Resident: Redd Lynn ATTENDING PHYSICIAN STATEMENT I saw and evaluated the patient. I reviewed the resident's note and discussed the case with the resident. I agree with the resident's findings and plan as documented. SUBJECTIVE:currently asymptomatic. no repeated tonic/clonic like activity. denies CP, SOB,fever, chills, N/V/C/D OBJECTIVE: Last Vital Signs Temp Pulse Resp BP Pulse Ox 98.3 F 81 16 135/92 100 09/12/16 09:00 09/12/16 09:00 09/12/16 09:00 09/12/16 09:00 09/12/16 09:00 General NAD Extremities no tremors ASSESSMENT AND PLAN: 51yo m iwth PMH continuous polysubstance abuse, seizures, HIV, HCV presented to the ER and was admitted for further evaluation of their emergent condition 1. Seizure- due to medication non-compliance. home medications were confirmed with pharmacy. restarted here. no seizure like activity for 48H. will need to follow up with PMD once completes detox for level check to see if levels therapeutic. stressed importance of medication compliance. 2. continuous polysubstance abuse- CIWA 0. COWS 0. started on librium/methadone detox. to be transferred to [facility] for completion. 3. HIV- not compliant with home medications. will hold HARRT therapy at this time as he is not complaint and will cause resistance. encourage to follow up in HIV clinic for re-initiation of medications. will cont bactrim for PCP prophylaxis. 4. DVT ppx- EAM 5. d/c to [facility] for completion of detox. stressed importance of medication compliance and PMD follow up. also stressed need to complete detox program and seek rehab to main drug abstinent.
--- NOTE | 2016-09-12 12:42 | DS ---
Physical Exam: SUBJECTIVE: Patient seen and examined Patient twas anxious overnight and wanted to smoke cigarette Pt became upset when he could not get cigarette Security was called to maintain safety no tremors, no fever, no chest pain, no palpitation No n/v no dizziness or confusion Patient is aware he need to take his medication on a regular basis including his seizure meds and HIV meds, he verbalized understanding that he need to take his dilatin every day as ordered to prevent him from getting seizure. Called [facility] to verify that the patient has Dilantin in his medication list. Case discussed with the patient nurse who confirmed that Dilantin and the other seizure medication are part of his medication list at [facility]. OBJECTIVE: Vital Signs Period Temp Pulse Resp BP Sys/Lala Pulse Ox Last 24 Hr 97.5 F-98.3 F 61-96 16-22 118-144/70-96 98-100 PHYSICAL EXAM GENERAL: The patient is awake, alert, and fully oriented, in no acute distress. HEAD: Normal with no signs of trauma. NECK: Trachea midline, full range of motion, supple. LUNGS: Breath sounds equal, clear to auscultation bilaterally, no wheezes, no crackles, no accessory muscle use. HEART: Regular rate and rhythm, S1, S2 without murmur, rub or gallop. ABDOMEN: Soft, nontender, nondistended, normoactive bowel sounds, no guarding, no rebound, no hepatosplenomegaly, no masses. EXTREMITIES: 2+ pulses, warm, well-perfused, no edema. NEUROLOGICAL:. Normal speech, gait not observed. No tremors PSYCH: Normal mood, normal affect. SKIN: Warm, dry, normal turgor, no rashes or lesions noted LABS CBC, BMP 09/10/16 13:50 09/10/16 16:35 HOSPITAL COURSE: Date of Admission:09/10/16 51 yr old man with hx of seizure d/o, ETOH/heroin/cocaine abuse, asthma, HIV, Hep C referred from [facility] for elevated BP and who sustained a seizure in the ED. Says he was going to detox when he was brought here. Last drink 2 days ago, last clonidine use 2 days ago. Says he takes phenobarbital daily. denies fever, cough, chest pain, sob, headache, abdominal pain. Patient is lethargic and difficult to keep aroused. Chart reviewed for further information. ER course was notable for: (1) seizure - 1 episode treated with valium 50mg IVPB (2) head CT negative for hemorrhage/mass 51 year old male with pmh of polysubstance abuse, HIV, Seizure disorder from [place] is admitted s/p seizure. Seizure likely due to non compliance r/o alcohol withdrawal/Delirium tremens. His last alcohol drink, cocaine and heroin use was 3-4 days ago. CIWA score 0, No librium taper needed. Dilantin level was less than 2.5 Patient was treated with Ativan 2 mg Prn IV, Valium 10 mg IV prn. Seizure medication was restating. Dilantin 500mg po daily, Phenobarbital 30mg po daily, gabapentin 300mg po BID. Patient was started On clonidine PO daily for Opiod withdrawal. Patient requested to go to Detox/rehab. Dr Curry was consulted. Pt has HIV but has been, has been non compliant to his meds. Will restart HAART on Dr Ashton, infectious disease, as outpatient ( Continue Truvada, prezista, Norvir). Continue bactrim 1 tab PO daily. Pt has HTN, Continue Lisinoprill 10mg PO daily. Date of Discharge: 09/12/16 Minutes to complete discharge: 40 <Redd Lynn - Last Filed: 09/13/16 02:29> Physical Exam: HARRT therapy held on discharge and instructed to f/u with HIV clinic to re- start discharge on home medications on seizure medications. phenobarbital and phenytoin. instructed once completes rehab to follow up with PMD to check levels to evaluate if therapeutic <Radha Manning - Last Filed: 09/17/16 15:29> Discharge Summary Reason For Visit: ALCOHOL WITHDRAWAL; SEIZURE DISORDER Current Active Problems Alcohol dependence with uncomplicated withdrawal (Acute) Alcohol withdrawal (Acute) Anxiety and depression (Acute) Asthma (Acute) Cocaine dependence (Acute) Delirium tremens (Acute) Essential hypertension (Acute) HIV (human immunodeficiency virus infection) (Acute) Hypercholesteremia (Acute) Insomnia (Acute) Neuropathy (Acute) Nicotine dependence (Acute) Opioid dependence with withdrawal (Acute) Seizure disorder (Acute) Syncope (Acute) Weight loss (Acute) - Home Medications Comprehensive Discharge Medication List: Ambulatory Orders Albuterol Sulfate Inhaler - [Ventolin HFA Inhaler -] 2 inh PO Q4H PRN 09/10/16 Clonidine HCl [Catapres -] 0.1 mg PO BID 09/10/16 Gabapentin [Neurontin -] 300 mg PO Q8H 09/10/16 Phenobarbital - 30 mg PO BID 09/10/16 Sulfamethoxazole/Trimethoprim [Bactrim DS -] 1 tab PO DAILY 09/10/16 Guaifenesin [Robitussin -] 10 ml PO Q4H PRN #0 ml 09/12/16 Lisinopril [Prinivil] 10 mg PO BID tablet 09/12/16 Nicotine Patch [Nicoderm Patch -] 14 mg TD DAILY patch 09/12/16 Nicotine Polacrilex [Nicorelief -] 2 mg BUC Q2H PRN #0 gum 09/12/16 Phenytoin Na Extended [Dilantin -] 500 mg PO DAILY tab 09/12/16 <Redd Lynn - Last Filed: 09/13/16 02:29> - Home Medications Comprehensive Discharge Medication List: Ambulatory Orders Albuterol Sulfate Inhaler - [Ventolin HFA Inhaler -] 2 inh PO Q4H PRN 09/10/16 Clonidine HCl [Catapres -] 0.1 mg PO BID 09/10/16 Gabapentin [Neurontin -] 300 mg PO Q8H 09/10/16 Phenobarbital - 30 mg PO BID 09/10/16 Sulfamethoxazole/Trimethoprim [Bactrim DS -] 1 tab PO DAILY 09/10/16 Guaifenesin [Robitussin -] 10 ml PO Q4H PRN #0 ml 09/12/16 Lisinopril [Prinivil] 10 mg PO BID tablet 09/12/16 Nicotine Patch [Nicoderm Patch -] 14 mg TD DAILY patch 09/12/16 Nicotine Polacrilex [Nicorelief -] 2 mg BUC Q2H PRN #0 gum 09/12/16 Phenytoin Na Extended [Dilantin -] 500 mg PO DAILY tab 09/12/16 <Radha Manning - Last Filed: 09/17/16 15:29> Condition: Critical - Instructions Diet, Activity, Other Instructions: Discharge to [place] care or Home Resume Home diet Resume Home activity Resume home medications now Restart the HIV medication once discharge from the hospital under the supervision of Dr Daisha - Truvada 200-300 mg, 1 tablet orally daily - Prezista 800mg 1 tablet orally daily - Norvir 100mg 1 tab orally daily Be compliant with your medication Follow up with Dr Angela Ashton within 1 week of leaving [facility] Angela Ly MD Infectious Disease [facility] [address] [place] [address] Referrals: Apollo Curry MD [Staff Physician] - Disposition: HOME This patient is new to me today: Yes Emergency Visit: Yes ED Registration Date: 09/10/16 Care time: The patient presented to the Emergency Department on the above date and was hospitalized for further evaluation of their emergent condition. Critical Care patient: No - Discharge Referral Referred to [facility] Med P.C.: No <Redd Lynn - Last Filed: 09/13/16 02:29>
[2016-09-13] MEDS ORDERED: METHADONE HCL 5 MG TABLET PO SCH (10:00)
[2016-09-13] MEDS ORDERED: diazePAM 5 MG TABLET PO SCH (10:00)
[2016-09-15] MEDS ORDERED: METHADONE HCL 10 MG TABLET PO SCH (10:00)
[2016-09-15] MEDS ORDERED: diazePAM 5 MG TABLET PO SCH (10:00)
[2016-09-16] MEDS ORDERED: METHADONE HCL 5 MG TABLET PO SCH (06:00)
== END 2016-09-12 11:59 | disposition home or self-care (01) | DRG 53 ==
LOC: JER 13:25 → JERBED 17:56 → JICU 22:15 → J5S 09-11 15:05
PROVIDERS: ADMIT Internal Medicine; ATTEND Internal Medicine
DX: G40.909 Epilepsy, unspecified, not intractable, without status epilepticus (principal); Z21 Asymptomatic human immunodeficiency virus [HIV] infection status; I10 Essential (primary) hypertension; J45.909 Unspecified asthma, uncomplicated; Z91.14 Patient's other noncompliance with medication regimen; G62.9 Polyneuropathy, unspecified; F11.20 Opioid dependence, uncomplicated; F13.20 Sedative, hypnotic or anxiolytic dependence, uncomplicated; B19.20 Unspecified viral hepatitis C without hepatic coma; F17.210 Nicotine dependence, cigarettes, uncomplicated; F10.231 Alcohol dependence with withdrawal delirium; R63.4 Abnormal weight loss; Z68.29 Body mass index [BMI] 29.0-29.9, adult
CPT/HCPCS: 36415; 70450-TC; 71010-TC; 80053; 80185; 80307; 81003; 81015; 83735; 85025; 85610; 93005; 93010; 99285-25

== ENCOUNTER 2016-09-12 12:18 | Inpatient (IN) | payer OTHER ==
[2016-09-12] MEDS ORDERED: MENTHOL/PHENOL 1 EACH UD MM PRN (13:07)
[2016-09-12] MEDS ORDERED: MAG HYDROX/AL HYDROX/SIMETH 30 ML UNIT-DOSE CUP PO PRN (13:07)
[2016-09-12] MEDS ORDERED: MAGNESIUM HYDROX 2400MG/30ML ORAL SUSPENSION 30 ML CUP PO PRN (13:07)
[2016-09-12] MEDS ORDERED: IBUPROFEN 400 MG TABLET (FP) PO PRN (13:07)
[2016-09-12] MEDS ORDERED: guaiFENesin/D-METHORPHAN HB 10 ML UNIT-DOSE CUPS PO PRN (13:07)
[2016-09-12] MEDS ORDERED: hydrOXYzine PAMOATE 50 MG CAPSULE (FP) PO PRN (13:07)
[2016-09-12] MEDS ORDERED: diphenhydrAMINE HCL 50 MG CAPSULE PO PRN (13:07)
[2016-09-12] MEDS ORDERED: MAGNESIUM CITRATE 300 ML BOTTLE PO PRN (13:07)
[2016-09-12] MEDS ORDERED: P-EPHED 60MG/TRIPROLIDI 2.5MG TABLET PO PRN (13:07)
[2016-09-12] MEDS ORDERED: diazePAM 5 MG TABLET PO PRN (13:07)
[2016-09-12] MEDS ORDERED: LOPERAMIDE HCL 2 MG CAPSULE PO PRN (13:07)
[2016-09-12] MEDS ORDERED: ACETAMINOPHEN 325 MG TABLET (FP) PO PRN (13:07)
[2016-09-12] MEDS ORDERED: ALBUTEROL SO4 6.7 GM HFA INHALER IH PRN (13:13)
[2016-09-12] MEDS ORDERED: NICOTINE POLACRILEX 2 MG GUM BUC PRN (13:13)
--- NOTE | 2016-09-12 13:22 | PN ---
[facility] Progress Note Note: Below is the admission H&P done before pt. was sent to ED because of seizure.Pt. is Re-evaluated,no change to be made in documentation. [facility] History and Physical Patient Name: MANUEL MCNULTY Date of : 67 Patient Status: Referred Attending Provider: Apollo Curry Date: 09/10/16 11:30 Initialization Date: 09/10/16 11:30 COWS - Scale Resting Pulse: 0= [place] 80 or Below Sweatin=Flushed/Facial Moisture Restless Observation: 3= Extraneous Movement Pupil Size: 2= Moderately Dilated Bone or Joint Aches: 2= Severe Diffuse Aches Runny Nose/ Eye Tearin= Runny Nose/Eyes GI Upset > 30mins: 3= Vomiting/Diarrhea Tremor Observation: 2= Slight Tremor Visible Yawning Observation: 2= >3x During Session Anxiety or Irritability: 2=Irritable/Anxious Goose Flesh Skin: 0=Smooth Skin COWS Score: 20 CIWA Score - CIWA Score Nausea/Vomitin Muscle Tremors: 3 Anxiety: 3 Agitation: 3 Paroxysmal Sweats: 2 Orientation: 0-Oriented Tacttile Disturbances: 2-Mild Itch/Numbness/Burn Auditory Disturbances: 2-Mild Harshness/Frighten Visual Disturbances: 2-Mild Sensitivity Headache: 2-Mild CIWA-Ar Total Score: 22 Admission ROS S - HPI Chief Complaint: I AM SICK AND TIRED OF USING DRUGS AND DRINKING ALCOHOL Allergies/Adverse Reactions: Allergies Allergy/AdvReac Type Severity Reaction Status Date / Time shellfish derived Allergy Severe Rash Verified 09/10/16 10:57 History of Present Illness: THIS 51 YEARS OLD BLACK MALE WITH HEROIN,COCAINE AND ALCOHOL DEPENDENCE, WITHDRAWAL SYMPTOM,LAST DETOX 2 YEARS AGO,DID NOT RECALL FACILITY SEIZRUE LAST 2015 SYNCOPE WEIGHT LOSS HTN ASTHMA NEUROPATHY HIV POSITIVE IN 1996 LONGEST PERIOD SOBRIETY - Ebola screening Have you traveled outside of the country in the last 21 days: No Have you had contact with anyone from an Ebola affected area: No Have you been sick,other than usual withdrawal symptoms: No - Review of Systems Constitutional: Chills, Loss of Appetite, Malaise, Night Sweats, Changes in sleep, Weakness, Unintentional Wgt. Loss EENT: reports: Tearing, Nose Congestion Respiratory: reports: Other (ASTHMA) Cardiac: reports: No Symptoms Reported GI: reports: Diarrhea, Nausea, Vomiting, Abdominal cramping : reports: No Symptoms Reported Musculoskeletal: reports: Back Pain, Joint Pain, Muscle Pain Integumentary: reports: Dryness Neuro: reports: Headache, Tremors Endocrine: reports: No Symptoms Reported Hematology: reports: No Symptoms Reported, Other (HIV) Psychiatric: reports: Anxious, Depressed Patient History - Patient Medical History Hx Asthma: Yes (Pt is on MDI) Hx Chronic Obstructive Pulmonary Disease (COPD): No Hx Cardiac Disorders: No Hx Hypertension: Yes (on meds.) Hx Seizures: Yes (pt's last seizure was 1 yr ago.) Hx Diabetes: No Hx Gastrointestinal Disorders: No Hx Genitourinary Disorders: No Hx Sexually Transmitted Disorders: No Hx Renal Disease (ESRD): No Hx Thyroid Disease: No Hx Human Immunodeficiency Virus (HIV): Yes (SINCE 1996) Hx Hepatitis C: No Hx Depression: Yes (ANXIETY,INSOMNIA) Hx Suicide Attempt: No Hx Bipolar Disorder: No Hx Schizophrenia: No Other Medical History: NO SUICIDAL,NO HOMICIDAL - Patient Surgical History Past Surgical History: No - PPD History Previous Implant?: Yes Documented Results: Negative w/o proof Implanted On Prior [facility] Admission?: No PPD to be Administered?: Yes - Smoking Cessation Smoking history: Current every day smoker Have you smoked in the past 12 months: Yes Aproximately how many cigarettes per day: 20 Hx Chewing Tobacco Use: No Initiated information on smoking cessation: Yes 'Breaking Loose' booklet given: 09/10/16 - Substance & Tx. History Hx Alcohol Use: Yes Hx Substance Use: Yes Substance Use Type: Alcohol, Cocaine, Heroin Hx Substance Use Treatment: Yes (2015 UNKNOWN LOCATION) - Substances Abused Alcohol Route: Oral Frequency: Daily Amount used: 1 pint vodka Age of first use: 15 Date of Last Use: 09/09/16 Crack Route: Smoking Frequency: Daily Amount used: 5 bags Age of first use: 21 Date of Last Use: 09/09/16 Heroin Route: Inhalation Frequency: Daily Amount used: 10 bags Age of first use: 41 Date of Last Use: 09/09/16 Family Disease History - Family Disease History Family History: Denies Admission Physical Exam [facility] - Vital Signs Vital Signs: Vital Signs - 24 hr 09/10/16 10:42 Temperature 97.7 F Pulse Rate 71 Respiratory 18 Rate Blood Pressure 157/102 - Physical General Appearance: Yes: Moderate Distress, Tremorous, Irritable, Sweating, Anxious HEENTM: Yes: Normal ENT Inspection, Normocephalic, MARK, Pharynx Normal Respiratory: Yes: Lungs Clear, Normal Breath Sounds, No Respiratory Distress Neck: Yes: Within Normal Limits Breast: Yes: Within Normal Limits Cardiology: Yes: Within Normal Limits, Regular Rhythm, Regular Rate, S1, S2 Abdominal: Yes: Normal Bowel Sounds, Non Tender, Flat, Soft, Pulsatile Mass Genitourinary: Yes: Within Normal Limits Back: Yes: Muscle Spasm Musculoskeletal: Yes: full range of Motion, Back pain, Joint Stiffness, Muscle Pain Extremities: Yes: Normal Inspection, Normal Range of Motion, Tremors Neurological: Yes: Within Normal Limits, 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 intact, Fully Oriented, Alert Integumentary: Yes: Dry Lymphatic: Yes: Within Normal Limits - Diagnostic (1) Opioid dependence with withdrawal Current Visit: Yes Status: Acute (2) Alcohol dependence with uncomplicated withdrawal Current Visit: Yes Status: Acute (3) Cocaine dependence Current Visit: Yes Status: Acute (4) HIV (human immunodeficiency virus infection) Current Visit: Yes Status: Acute (5) Seizure disorder Current Visit: Yes Status: Acute (6) Syncope Current Visit: Yes Status: Acute (7) Asthma Current Visit: Yes Status: Acute (8) Neuropathy Current Visit: Yes Status: Acute (9) Essential hypertension Current Visit: Yes Status: Acute (10) Hypercholesteremia Current Visit: Yes Status: Acute (11) Weight loss Current Visit: Yes Status: Acute (12) Insomnia Current Visit: Yes Status: Acute (13) Anxiety and depression Current Visit: Yes Status: Acute (14) Nicotine dependence Current Visit: Yes Status: Acute Cleared for Admission S - Detox or Rehab [facility] Level of Care: Medically Managed Detox Regimen/Protocol: Methadone/Librium S Breath Alcohol Content Breath Alcohol Content: 0 Urine Drug Screen - Results Drug Screen Negative: No Urine Drug Screen Results: THC-Marijuana, EDILSON-Cocaine, OPI-Opiates, PCP- Phencyclidine [facility]
[2016-09-12] MEDS ORDERED: diazePAM 5 MG TABLET PO SCH (14:00)
[2016-09-12 15:02] VITALS: BP 135/95; PULSE 83; TEMP 96.8
[2016-09-12] MEDS ORDERED: cloNIDine HCL 0.1 MG TABLET PO SCH (22:00)
[2016-09-12] MEDS ORDERED: LISINOPRIL 10 MG TABLET (FP) PO SCH (22:00)
[2016-09-12] MEDS ORDERED: THIAMINE HCL 100 MG TABLET (FP) PO SCH (22:00)
[2016-09-12] MEDS ORDERED: PHENobarbital 30 MG TABLET PO SCH (22:00)
[2016-09-13] MEDS ORDERED: NICOTINE 14 MG/24 HOURS TOPICAL PATCH TD SCH (10:00)
[2016-09-13] MEDS ORDERED: PHENYTOIN NA EXTENDED 100 MG CAPSULE (FP) PO SCH (10:00)
[2016-09-13] MEDS ORDERED: METHADONE HCL 5 MG TABLET (FOR DETOX USE ONLY) PO SCH (10:00)
[2016-09-13] MEDS ORDERED: SULFAMETHOXAZOLE/TRIMETHOPRIM 800MG/160MG D.S. TABLET PO SCH (10:00)
[2016-09-13] MEDS ORDERED: PRENATAL VITAMINS W/ FOLIC ACID TABLET (FP) PO SCH (10:00)
[2016-09-14] MEDS ORDERED: diazePAM 5 MG TABLET PO SCH (10:00)
[2016-09-15] MEDS ORDERED: METHADONE HCL 10 MG TABLET (FOR DETOX USE ONLY) PO SCH (10:00)
[2016-09-16] MEDS ORDERED: METHADONE HCL 5 MG TABLET (FOR DETOX USE ONLY) PO SCH (06:00)
[2016-09-16] MEDS ORDERED: diazePAM 5 MG TABLET PO SCH (10:00)
== END 2016-09-12 15:24 | disposition left against medical advice (07) | DRG 770 ==
LOC: YASAS 12:18 → Y3N 13:36
PROVIDERS: ADMIT Internal Medicine; ATTEND Internal Medicine
PROC: HZ2ZZZZ Detoxification Services for Substance Abuse Treatment (ICD-10-PCS; principal; 2016-09-12)
DX: F11.23 Opioid dependence with withdrawal (principal); F10.230 Alcohol dependence with withdrawal, uncomplicated; F14.20 Cocaine dependence, uncomplicated; F17.210 Nicotine dependence, cigarettes, uncomplicated; F41.8 Other specified anxiety disorders; G47.00 Insomnia, unspecified; G40.909 Epilepsy, unspecified, not intractable, without status epilepticus; G62.9 Polyneuropathy, unspecified; I10 Essential (primary) hypertension; E78.00 Pure hypercholesterolemia, unspecified; Z21 Asymptomatic human immunodeficiency virus [HIV] infection status; R63.5 Abnormal weight gain; Z68.30 Body mass index [BMI] 30.0-30.9, adult

== ENCOUNTER 2016-12-24 11:22 | Inpatient (IN) | payer OTHER ==
[2016-12-24 11:48] VITALS: BMI 29.0
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
[2016-12-24] MEDS ORDERED: guaiFENesin/D-METHORPHAN HB 10 ML UNIT-DOSE CUPS PO PRN (13:33)
[2016-12-24] MEDS ORDERED: NICOTINE POLACRILEX 4 MG GUM BUC PRN (13:33)
[2016-12-24] MEDS ORDERED: MAGNESIUM CITRATE 300 ML BOTTLE PO PRN (13:33)
[2016-12-24] MEDS ORDERED: MENTHOL/PHENOL 1 EACH UD MM PRN (13:33)
[2016-12-24] MEDS ORDERED: ACETAMINOPHEN 325 MG TABLET (FP) PO PRN (13:33)
[2016-12-24] MEDS ORDERED: MAG HYDROX/AL HYDROX/SIMETH 30 ML UNIT-DOSE CUP PO PRN (13:33)
[2016-12-24] MEDS ORDERED: LOPERAMIDE HCL 2 MG CAPSULE PO PRN (13:33)
[2016-12-24] MEDS ORDERED: hydrOXYzine PAMOATE 50 MG CAPSULE (FP) PO PRN (13:33)
[2016-12-24] MEDS ORDERED: P-EPHED 60MG/TRIPROLIDI 2.5MG TABLET PO PRN (13:33)
[2016-12-24] MEDS ORDERED: MAGNESIUM HYDROX 2400MG/30ML ORAL SUSPENSION 30 ML CUP PO PRN (13:33)
[2016-12-24] MEDS ORDERED: ALBUTEROL SO4 6.7 GM HFA INHALER IH PRN (13:39)
[2016-12-24] MEDS ORDERED: chlordiazePOXIDE HCL 25 MG CAPSULE PO ONE (14:30)
[2016-12-24] MEDS: LISINOPRIL 10 MG TABLET (FP) PO SCH ×2 (14:51→22:19)
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
[2016-12-24 17:07] LABS: URINE APPEARANCE CLEAR; URINE BILIRUBIN NEGATIVE (NEGATIVE); URINE BLOOD NEGATIVE (NEGATIVE); URINE COLOR YELLOW; URINE GLUCOSE (UA) NEGATIVE (NEGATIVE); URINE KETONE NEGATIVE (NEGATIVE); URINE LEUK ESTERASE NEGATIVE (NEGATIVE); URINE NITRITE NEGATIVE (NEGATIVE); URINE PROTEIN NEGATIVE (NEGATIVE); URINE UROBILINOGEN NEGATIVE mg/dL (0.2-1.0)
[2016-12-24] MEDS: chlordiazePOXIDE HCL 25 MG CAPSULE PO SCH ×2 (17:14→22:19)
[2016-12-24] MEDS: PHENobarbital 30 MG TABLET PO SCH (22:19)
[2016-12-24] MEDS: THIAMINE HCL 100 MG TABLET (FP) PO SCH (22:20)
[2016-12-24] MEDS: RANITIDINE HCL 150 MG TABLET (FP) PO SCH (22:20)
[2016-12-25] MEDS ORDERED: METHADONE HCL 10 MG TABLET PO SCH (06:00)
[2016-12-25] MEDS: chlordiazePOXIDE HCL 25 MG CAPSULE PO SCH ×4 (06:10→22:30)
[2016-12-25] MEDS ORDERED: METHADONE HCL 40 MG DISPERSABLE TABLET ONE (06:11)
[2016-12-25] MEDS ORDERED: METHADONE HCL 10 MG TABLET ONE (06:12)
[2016-12-25] MEDS: METHADONE 20 MG, METHADONE 80 MG PO SCH (06:12)
[2016-12-25 10:00] LABS: MCH 33.5 pg (25.7-33.7); MCHC 33.6 g/dl (32.0-35.9); MEAN CELL VOLUME 99.7 fl (80-96); MEAN PLT VOLUME 9.8 fl (7.5-11.1); PLATELET COUNT 214 K/MM3 (134-434); RDW 12.7 % (11.9-15.9)
[2016-12-25 10:32] LABS: ALBUMIN 3.2 g/dl (3.4-5.0); ALK PHOS 185 U/L (45-117); ANION GAP 6 (8-16); BILIRUBIN,TOTAL 0.3 mg/dL (0.2-1.0); CALCIUM 8.5 mg/dL (8.5-10.1); CO2 28 mmol/L (21-32); CREATININE 0.9 mg/dL (0.7-1.3); GLUCOSE,RANDOM 90 mg/dL (74-106); SGOT/AST 107 U/L (15-37); SGPT/ALT 146 U/L (12-78); TOT PROT 7.6 g/dl (6.4-8.2)
--- NOTE | 2016-12-25 10:36 | PN ---
[facility] CIWA - CIWA Score Nausea/Vomitin Muscle Tremors: 3 Anxiety: 3 Agitation: 2 Paroxysmal Sweats: 1-Minimal Palms Moist Orientation: 0-Oriented Tacttile Disturbances: 1-Very Mild Itch/Numbness Auditory Disturbances: 1-Very Mild Visual Disturbances: 1-Very Mild Sensitivity Headache: 2-Mild CIWA-Ar Total Score: 17 S Progress Note (SOAP) Subjective: ALERT,IRRITABLE,ANXIOUS,INTERRUPTED SLEEP,TREMOR,ACHING PAIN Objective: 12/25/16 10:32 Vital Signs Temperature 98.1 F 12/25/16 09:24 Pulse Rate 68 12/25/16 09:24 Respiratory Rate 20 12/25/16 09:24 Blood Pressure 142/100 12/25/16 09:24 O2 Sat by Pulse Oximetry (%) EKG SINUS BRADYCARDIA 58/MIN NO CHEST PAIN,NO SOB,NO DIZZINESS Laboratory Last Values WBC 3.0 K/mm3 (4.0-10.0) L 12/25/16 06:00 RBC 4.02 M/mm3 (4.00-5.60) 12/25/16 06:00 Hgb 13.4 GM/dL (11.7-16.9) 12/25/16 06:00 Hct 40.0 % (35.4-49) 12/25/16 06:00 MCV 99.7 fl (80-96) H 12/25/16 06:00 MCH 33.5 pg (25.7-33.7) 12/25/16 06:00 MCHC 33.6 g/dl (32.0-35.9) 12/25/16 06:00 RDW 12.7 % (11.9-15.9) 12/25/16 06:00 Plt Count 214 K/MM3 (134-434) 12/25/16 06:00 MPV 9.8 fl (7.5-11.1) 12/25/16 06:00 Sodium 137 mmol/L (136-145) 12/25/16 06:00 Potassium 4.2 mmol/L (3.5-5.1) 12/25/16 06:00 Chloride 103 mmol/L (98-107) 12/25/16 06:00 Urine Color Yellow 12/24/16 14:55 Urine Appearance Clear 12/24/16 14:55 Urine pH 5.0 (5.0-8.0) 12/24/16 14:55 Ur Specific [place] >= 1.030 (1.005-1.025) H 12/24/16 14:55 Urine Protein Negative (NEGATIVE) 12/24/16 14:55 Urine Glucose (UA) Negative (NEGATIVE) 12/24/16 14:55 Urine Ketones Negative (NEGATIVE) 12/24/16 14:55 Urine Blood Negative (NEGATIVE) 12/24/16 14:55 Urine Nitrite Negative (NEGATIVE) 12/24/16 14:55 Urine Bilirubin Negative (NEGATIVE) 12/24/16 14:55 Urine Urobilinogen Negative mg/dL (0.2-1.0) 12/24/16 14:55 Ur Leukocyte Esterase Negative (NEGATIVE) 12/24/16 14:55 LABS PENDING LEUKOPENIA PROBABLY FOR HIV Assessment: 12/25/16 10:35 WITHDRAWAL SYMPTOM Plan: CONTINUE DETOX,ENCOURAGE ORAL FLUID,ENSURE PLUS 120 MLS PO BID
[2016-12-25] MEDS: ATAZANAVIR SO4 300 MG CAPSULE PO SCH (10:40)
[2016-12-25] MEDS: PHENYTOIN NA EXTENDED 100 MG CAPSULE (FP) PO SCH (10:41)
[2016-12-25] MEDS: FLUoxetine HCL 20 MG CAPSULE (FP) PO SCH (10:41)
[2016-12-25] MEDS: RANITIDINE HCL 150 MG TABLET (FP) PO SCH ×2 (10:42→22:29)
[2016-12-25] MEDS: PRENATAL VITAMINS W/ FOLIC ACID TABLET (FP) PO SCH (10:42)
[2016-12-25] MEDS: PHENobarbital 30 MG TABLET PO SCH ×2 (10:42→22:32)
[2016-12-25] MEDS: LISINOPRIL 10 MG TABLET (FP) PO SCH ×2 (10:42→22:29)
[2016-12-25] MEDS: EMTRICITABINE 200MG/TENOFOVIR 300MG PO SCH (10:43)
[2016-12-25] MEDS: NICOTINE 21 MG/24 HOURS TOPICAL PATCH TD SCH (10:44)
[2016-12-25] MEDS: RITONAVIR 100 MG TABLET PO SCH (10:44)
--- NOTE | 2016-12-25 11:30 | EKG ---
Test Reason : Blood Pressure : / mmHG Vent. Rate : 058 BPM Atrial Rate : 058 BPM P-R Int : 142 ms QRS Dur : 098 ms QT Int : 450 ms P-R-T Axes : 050 011 022 degrees QTc Int : 441 ms SINUS BRADYCARDIA OTHERWISE NORMAL ECG WHEN COMPARED WITH ECG OF 10-SEP-2016 15:36, NO SIGNIFICANT CHANGE WAS FOUND Confirmed by DARNELL CHU MD ([id number]) on 12/25/2016 11:29:41 AM Referred By: Confirmed By:DARNELL CHU MD
[2016-12-25] MEDS: THIAMINE HCL 100 MG TABLET (FP) PO SCH (22:29)
[2016-12-26] MEDS ORDERED: METHADONE HCL 10 MG TABLET ONE (04:15)
[2016-12-26] MEDS ORDERED: METHADONE HCL 40 MG DISPERSABLE TABLET ONE (04:15)
[2016-12-26] MEDS: METHADONE 20 MG, METHADONE 80 MG PO SCH (05:23)
[2016-12-26] MEDS: chlordiazePOXIDE HCL 25 MG CAPSULE PO SCH ×2 (05:23→10:25)
[2016-12-26] MEDS: IBUPROFEN 400 MG TABLET (FP) PO PRN (07:00)
[2016-12-26] MEDS: EMTRICITABINE 200MG/TENOFOVIR 300MG PO SCH (10:25)
[2016-12-26] MEDS: RITONAVIR 100 MG TABLET PO SCH (10:26)
[2016-12-26] MEDS: ATAZANAVIR SO4 300 MG CAPSULE PO SCH (10:26)
[2016-12-26] MEDS: PRENATAL VITAMINS W/ FOLIC ACID TABLET (FP) PO SCH (10:27)
[2016-12-26] MEDS: LISINOPRIL 10 MG TABLET (FP) PO SCH ×2 (10:27→22:17)
[2016-12-26] MEDS: FLUoxetine HCL 20 MG CAPSULE (FP) PO SCH (10:27)
[2016-12-26] MEDS: PHENobarbital 30 MG TABLET PO SCH ×2 (10:27→22:17)
[2016-12-26] MEDS: RANITIDINE HCL 150 MG TABLET (FP) PO SCH ×2 (10:27→22:16)
[2016-12-26] MEDS: PHENYTOIN NA EXTENDED 100 MG CAPSULE (FP) PO SCH (10:27)
[2016-12-26] MEDS: NICOTINE 21 MG/24 HOURS TOPICAL PATCH TD SCH (10:30)
--- NOTE | 2016-12-26 11:21 | PN ---
S CIWA - CIWA Score Nausea/Vomitin Muscle Tremors: 3 Anxiety: 2 Agitation: 2 Paroxysmal Sweats: 1-Minimal Palms Moist Orientation: 0-Oriented Tacttile Disturbances: 1-Very Mild Itch/Numbness Auditory Disturbances: 1-Very Mild Visual Disturbances: 1-Very Mild Sensitivity Headache: 2-Mild CIWA-Ar Total Score: 16 S Progress Note (SOAP) Subjective: ALERT,IRRITABLE,ANXIOUS,INTERRUPTED SLEEP,TREMOR Objective: 12/26/16 11:19 Vital Signs Temperature 97.3 F L 12/26/16 10:00 Pulse Rate 72 12/26/16 10:00 Respiratory Rate 18 12/26/16 10:00 Blood Pressure 147/94 12/26/16 10:00 O2 Sat by Pulse Oximetry (%) Laboratory Last Values WBC 3.0 K/mm3 (4.0-10.0) L 12/25/16 06:00 RBC 4.02 M/mm3 (4.00-5.60) 12/25/16 06:00 Hgb 13.4 GM/dL (11.7-16.9) 12/25/16 06:00 Hct 40.0 % (35.4-49) 12/25/16 06:00 MCV 99.7 fl (80-96) H 12/25/16 06:00 MCH 33.5 pg (25.7-33.7) 12/25/16 06:00 MCHC 33.6 g/dl (32.0-35.9) 12/25/16 06:00 RDW 12.7 % (11.9-15.9) 12/25/16 06:00 Plt Count 214 K/MM3 (134-434) 12/25/16 06:00 MPV 9.8 fl (7.5-11.1) 12/25/16 06:00 Sodium 137 mmol/L (136-145) 12/25/16 06:00 Potassium 4.2 mmol/L (3.5-5.1) 12/25/16 06:00 Chloride 103 mmol/L (98-107) 12/25/16 06:00 Carbon Dioxide 28 mmol/L (21-32) 12/25/16 06:00 Anion Gap 6 (8-16) L 12/25/16 06:00 BUN 11 mg/dL (7-18) D 12/25/16 06:00 Creatinine 0.9 mg/dL (0.7-1.3) 12/25/16 06:00 Creat Clearance w eGFR > 60 (>60) 12/25/16 06:00 Random Glucose 90 mg/dL (74-106) 12/25/16 06:00 Calcium 8.5 mg/dL (8.5-10.1) 12/25/16 06:00 Total Bilirubin 0.3 mg/dL (0.2-1.0) D 12/25/16 06:00 AST 107 U/L (15-37) H D 12/25/16 06:00 ALT 146 U/L (12-78) H D 12/25/16 06:00 Alkaline Phosphatase 185 U/L (45-117) H 12/25/16 06:00 Total Protein 7.6 g/dl (6.4-8.2) 12/25/16 06:00 Albumin 3.2 g/dl (3.4-5.0) L 12/25/16 06:00 Urine Color Yellow 12/24/16 14:55 Urine Appearance Clear 12/24/16 14:55 Urine pH 5.0 (5.0-8.0) 12/24/16 14:55 Ur Specific [place] >= 1.030 (1.005-1.025) H 12/24/16 14:55 Urine Protein Negative (NEGATIVE) 12/24/16 14:55 Urine Glucose (UA) Negative (NEGATIVE) 12/24/16 14:55 Urine Ketones Negative (NEGATIVE) 12/24/16 14:55 Urine Blood Negative (NEGATIVE) 12/24/16 14:55 Urine Nitrite Negative (NEGATIVE) 12/24/16 14:55 Urine Bilirubin Negative (NEGATIVE) 12/24/16 14:55 Urine Urobilinogen Negative mg/dL (0.2-1.0) 12/24/16 14:55 Ur Leukocyte Esterase Negative (NEGATIVE) 12/24/16 14:55 RPR Titer Nonreactive (NONREACTIVE) 12/25/16 06:00 Assessment: 12/26/16 11:20 WITHDRAWAL SYMPTOM Plan: CONTINUE DETOX,D/C TYLENOL,REPEAT ALT,AST,INR IN AM
[2016-12-26] MEDS: chlordiazePOXIDE 5 MG CAPSULE PO SCH ×2 (17:57→22:17)
[2016-12-26] MEDS: THIAMINE HCL 100 MG TABLET (FP) PO SCH (22:16)
[2016-12-27] MEDS: IBUPROFEN 400 MG TABLET (FP) PO PRN ×2 (00:58→17:22)
[2016-12-27] MEDS: diphenhydrAMINE HCL 50 MG CAPSULE PO PRN (00:58)
[2016-12-27] MEDS: chlordiazePOXIDE HCL 25 MG CAPSULE PO PRN ×3 (01:00→12:29)
[2016-12-27] MEDS ORDERED: METHADONE HCL 40 MG DISPERSABLE TABLET ONE (04:53)
[2016-12-27] MEDS ORDERED: METHADONE HCL 10 MG TABLET ONE (04:54)
[2016-12-27] MEDS: METHADONE 20 MG, METHADONE 80 MG PO SCH (05:24)
[2016-12-27] MEDS: chlordiazePOXIDE 5 MG CAPSULE PO SCH ×2 (05:25→10:25)
[2016-12-27] MEDS: ATAZANAVIR SO4 300 MG CAPSULE PO SCH (08:55)
[2016-12-27] MEDS: EMTRICITABINE 200MG/TENOFOVIR 300MG PO SCH (08:55)
[2016-12-27] MEDS: RITONAVIR 100 MG TABLET PO SCH (08:55)
[2016-12-27] MEDS: PRENATAL VITAMINS W/ FOLIC ACID TABLET (FP) PO SCH (09:42)
[2016-12-27 10:21] LABS: INR 0.94 (0.82-1.09); PROTHROMBIN TIME (PATIENT) 10.3 SEC (9.98-11.88)
[2016-12-27 10:23] LABS: SGOT/AST 32 U/L (15-37); SGPT/ALT 75 U/L (12-78)
[2016-12-27] MEDS: PHENYTOIN NA EXTENDED 100 MG CAPSULE (FP) PO SCH (10:24)
[2016-12-27] MEDS: FLUoxetine HCL 20 MG CAPSULE (FP) PO SCH (10:24)
[2016-12-27] MEDS: LISINOPRIL 10 MG TABLET (FP) PO SCH ×2 (10:25→22:25)
[2016-12-27] MEDS: RANITIDINE HCL 150 MG TABLET (FP) PO SCH ×2 (10:25→22:25)
[2016-12-27] MEDS: PHENobarbital 30 MG TABLET PO SCH ×2 (10:28→22:25)
[2016-12-27] MEDS: NICOTINE 21 MG/24 HOURS TOPICAL PATCH TD SCH (10:30)
--- NOTE | 2016-12-27 11:45 | PN ---
S Progress Note (SOAP) Subjective: ALERT,IRRITABLE,ANXIOUS,INTERRUPTED SLEEP Objective: 12/27/16 11:44 Vital Signs Temperature 97.5 F L 12/27/16 10:02 Pulse Rate 70 12/27/16 10:02 Respiratory Rate 18 12/27/16 10:02 Blood Pressure 143/102 12/27/16 10:02 O2 Sat by Pulse Oximetry (%) Assessment: 12/27/16 11:45 WITHDRAWAL SYMPTOM Plan: CONTINUE DETOX
[2016-12-27] MEDS: chlordiazePOXIDE HCL 10 MG CAPSULE PO SCH ×2 (17:21→22:25)
[2016-12-27] MEDS: THIAMINE HCL 100 MG TABLET (FP) PO SCH (22:25)
[2016-12-28] MEDS ORDERED: METHADONE HCL 40 MG DISPERSABLE TABLET ONE (05:03)
[2016-12-28] MEDS ORDERED: METHADONE HCL 10 MG TABLET ONE (05:03)
[2016-12-28] MEDS: METHADONE 20 MG, METHADONE 80 MG PO SCH (06:08)
[2016-12-28] MEDS: chlordiazePOXIDE HCL 10 MG CAPSULE PO SCH ×2 (06:09→10:19)
[2016-12-28] MEDS: ATAZANAVIR SO4 300 MG CAPSULE PO SCH (08:34)
[2016-12-28] MEDS: IBUPROFEN 400 MG TABLET (FP) PO PRN ×2 (08:35→17:30)
[2016-12-28] MEDS: RITONAVIR 100 MG TABLET PO SCH (08:35)
[2016-12-28] MEDS: EMTRICITABINE 200MG/TENOFOVIR 300MG PO SCH (08:35)
[2016-12-28] MEDS: NICOTINE 21 MG/24 HOURS TOPICAL PATCH TD SCH (10:19)
[2016-12-28] MEDS: FLUoxetine HCL 20 MG CAPSULE (FP) PO SCH (10:19)
[2016-12-28] MEDS: RANITIDINE HCL 150 MG TABLET (FP) PO SCH ×2 (10:19→22:31)
[2016-12-28] MEDS: PRENATAL VITAMINS W/ FOLIC ACID TABLET (FP) PO SCH (10:19)
[2016-12-28] MEDS: PHENYTOIN NA EXTENDED 100 MG CAPSULE (FP) PO SCH (10:19)
[2016-12-28] MEDS: LISINOPRIL 10 MG TABLET (FP) PO SCH ×2 (10:19→22:55)
[2016-12-28] MEDS: PHENobarbital 30 MG TABLET PO SCH ×2 (10:22→22:31)
--- NOTE | 2016-12-28 10:59 | PN ---
S Progress Note (SOAP) Subjective: ALERT,INTERRUPTED SLEEP,HAS EPISODE OF FALL THIS MORNING,NO INJURY NEEDED Objective: 12/28/16 10:59 Vital Signs Temperature 97.9 F 12/28/16 10:26 Pulse Rate 68 12/28/16 10:26 Respiratory Rate 18 12/28/16 10:26 Blood Pressure 140/88 12/28/16 10:26 O2 Sat by Pulse Oximetry (%) 12/28/16 11:01 Assessment: 12/28/16 11:01 WITHDRAWAL SYMPTOM Plan: CONTINUE DETOX,ON FALL PROTOCOL 2 ,DISCHARGE IN AM
[2016-12-28] MEDS: THIAMINE HCL 100 MG TABLET (FP) PO SCH (22:31)
[2016-12-28] MEDS: diphenhydrAMINE HCL 50 MG CAPSULE PO PRN (22:32)
[2016-12-29] MEDS ORDERED: METHADONE HCL 40 MG DISPERSABLE TABLET ONE (04:11)
[2016-12-29] MEDS ORDERED: METHADONE HCL 10 MG TABLET ONE (04:11)
[2016-12-29] MEDS: METHADONE 20 MG, METHADONE 80 MG PO SCH (05:52)
--- NOTE | 2016-12-29 08:53 | DS ---
[facility] Detox Discharge Summary Admission Date: 12/24/16 Discharge Date: 12/29/16 - History Present History: Alcohol Dependence, Cocaine Dependence Additional Comments: follow up with after care program as arrangement Pertinent Past History: hiv essential hypertension neuropathy seizure disorder nicotine dependence methadone maintenance therapy patient - Physical Exam Results Vital Signs: Vital Signs Temperature 98 F 12/29/16 06:24 Pulse Rate 59 L 12/29/16 06:24 Respiratory Rate 18 12/29/16 06:24 Blood Pressure 131/83 12/29/16 06:24 O2 Sat by Pulse Oximetry (%) Pertinent Admission Physical Exam Findings: withdrawal symptom - Treatment Hospital Course: Detox Protocol Followed, Detoxed Safely, Responded well, Discharged Condition Good Patient has Accepted a Rehab Referral to: declined - Medication Discharge Medications: Ambulatory Orders Albuterol Sulfate Inhaler - [Ventolin HFA Inhaler -] 2 inh PO Q4H PRN 09/10/16 Clonidine HCl [Catapres -] 0.1 mg PO BID 09/10/16 Gabapentin [Neurontin -] 300 mg PO Q8H 09/10/16 Phenobarbital - 30 mg PO BID 09/10/16 Sulfamethoxazole/Trimethoprim [Bactrim DS -] 1 tab PO DAILY 09/10/16 Lisinopril [Prinivil] 10 mg PO BID tablet 09/12/16 Atazanavir [Reyataz -] 300 mg PO DAILY 12/24/16 Emtricitabine/Tenofovir [Truvada -] 1 tab PO DAILY 12/24/16 Fluoxetine HCl [Prozac -] 20 mg PO DAILY 12/24/16 Fluoxetine HCl [Prozac] 20 mg PO DAILY #30 capsule 12/24/16 Phenytoin Na Extended [Dilantin -] 300 mg PO DAILY 12/24/16 Ranitidine [Zantac -] 150 mg PO BID 12/24/16 Ritonavir [Norvir -] 100 mg PO DAILY 12/24/16 - Diagnosis (1) Alcohol dependence with uncomplicated withdrawal Current Visit: Yes Status: Acute (2) Cocaine dependence Current Visit: Yes Status: Acute Qualifiers: Substance use status: uncomplicated Qualified Code(s): F14.20 - Cocaine dependence, uncomplicated (3) Nicotine dependence Current Visit: Yes Status: Acute Qualifiers: Nicotine product type: cigarettes Substance use status: uncomplicated Qualified Code(s): F17.210 - Nicotine dependence, cigarettes, uncomplicated (4) Opioid dependence on agonist therapy Current Visit: Yes Status: Acute (5) Asthma Current Visit: Yes Status: Chronic Qualifiers: Asthma severity: mild intermittent Asthma complication type: uncomplicated Qualified Code(s): J45.20 - Mild intermittent asthma, uncomplicated (6) Essential hypertension Current Visit: Yes Status: Chronic (7) HIV (human immunodeficiency virus infection) Current Visit: Yes Status: Chronic (8) Neuropathy Current Visit: Yes Status: Chronic - AMA Did Patient Leave Against Medical Advice: No
[2016-12-29] MEDS: PHENYTOIN NA EXTENDED 100 MG CAPSULE (FP) PO SCH (09:07)
[2016-12-29] MEDS: RANITIDINE HCL 150 MG TABLET (FP) PO SCH (09:07)
[2016-12-29] MEDS: NICOTINE 21 MG/24 HOURS TOPICAL PATCH TD SCH (09:08)
[2016-12-29] MEDS: ATAZANAVIR SO4 300 MG CAPSULE PO SCH (09:08)
[2016-12-29] MEDS: EMTRICITABINE 200MG/TENOFOVIR 300MG PO SCH (09:08)
[2016-12-29] MEDS: PHENobarbital 30 MG TABLET PO SCH (09:09)
[2016-12-29] MEDS: PRENATAL VITAMINS W/ FOLIC ACID TABLET (FP) PO SCH (09:09)
[2016-12-29] MEDS: RITONAVIR 100 MG TABLET PO SCH (09:11)
[2016-12-29] MEDS: FLUoxetine HCL 20 MG CAPSULE (FP) PO SCH (09:20)
[2016-12-29] MEDS: LISINOPRIL 10 MG TABLET (FP) PO SCH (09:20)
[2016-12-29 09:50] VITALS: BP 132/83; PULSE 80; TEMP 97.7
== END 2016-12-29 09:44 | disposition home or self-care (01) | DRG 773 ==
LOC: YASAS 11:22 → Y6N 14:08
PROVIDERS: ADMIT Internal Medicine; ATTEND Internal Medicine
PROC: HZ2ZZZZ Detoxification Services for Substance Abuse Treatment (ICD-10-PCS; principal; 2016-12-24)
DX: F10.230 Alcohol dependence with withdrawal, uncomplicated (principal); F11.20 Opioid dependence, uncomplicated; F14.20 Cocaine dependence, uncomplicated; F15.10 Other stimulant abuse, uncomplicated; F12.20 Cannabis dependence, uncomplicated; F17.210 Nicotine dependence, cigarettes, uncomplicated; F19.24 Other psychoactive substance dependence with psychoactive substance-induced mood disorder; F32.9 Major depressive disorder, single episode, unspecified; J45.20 Mild intermittent asthma, uncomplicated; I10 Essential (primary) hypertension; Z21 Asymptomatic human immunodeficiency virus [HIV] infection status; G62.9 Polyneuropathy, unspecified; G47.00 Insomnia, unspecified; R00.1 Bradycardia, unspecified; L98.8 Other specified disorders of the skin and subcutaneous tissue; D72.819 Decreased white blood cell count, unspecified; K21.9 Gastro-esophageal reflux disease without esophagitis; Z86.69 Personal history of other diseases of the nervous system and sense organs; Z91.013 Allergy to seafood
CPT/HCPCS: 36415; 80053; 81003; 84450; 84460; 85027; 85610; 86593; 93005; 93010

== ENCOUNTER 2017-01-30 12:23 | Inpatient (IN) | payer OTHER ==
[2017-01-30 13:04] VITALS: BMI 29.1
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
[2017-01-30] MEDS ORDERED: NICOTINE POLACRILEX 2 MG GUM BC PRN (13:53)
[2017-01-30] MEDS ORDERED: P-EPHED 60MG/TRIPROLIDI 2.5MG TABLET PO PRN (13:53)
[2017-01-30] MEDS ORDERED: diphenhydrAMINE HCL 50 MG CAPSULE PO PRN (13:53)
[2017-01-30] MEDS ORDERED: guaiFENesin/D-METHORPHAN HB 10 ML UNIT-DOSE CUPS PO PRN (13:53)
[2017-01-30] MEDS ORDERED: MAGNESIUM HYDROX 2400MG/30ML ORAL SUSPENSION 30 ML CUP PO PRN (13:53)
[2017-01-30] MEDS ORDERED: IBUPROFEN 400 MG TABLET (FP) PO PRN (13:53)
[2017-01-30] MEDS ORDERED: MENTHOL/PHENOL 1 EACH UD MM PRN (13:53)
[2017-01-30] MEDS ORDERED: LOPERAMIDE HCL 2 MG CAPSULE PO PRN (13:53)
[2017-01-30] MEDS ORDERED: ACETAMINOPHEN 325 MG TABLET (FP) PO PRN (13:53)
[2017-01-30] MEDS ORDERED: MAGNESIUM CITRATE 300 ML BOTTLE PO PRN (13:53)
[2017-01-30] MEDS ORDERED: ALBUTEROL SO4 6.7 GM HFA INHALER IH PRN (13:59)
[2017-01-30] MEDS ORDERED: chlordiazePOXIDE HCL 25 MG CAPSULE PO ONE (14:30)
[2017-01-30] MEDS: NICOTINE 21 MG/24 HOURS TOPICAL PATCH TD SCH (15:10)
[2017-01-30] MEDS: GABAPENTIN 300 MG CAPSULE (FP) PO SCH ×2 (15:10→22:24)
[2017-01-30] MEDS: MAG HYDROX/AL HYDROX/SIMETH 30 ML UNIT-DOSE CUP PO PRN (15:11)
[2017-01-30] MEDS: chlordiazePOXIDE HCL 25 MG CAPSULE PO SCH ×2 (17:36→22:24)
[2017-01-30 21:12] LABS: URINE APPEARANCE SLCLOUDY; URINE BILIRUBIN NEGATIVE (NEGATIVE); URINE BLOOD NEGATIVE (NEGATIVE); URINE COLOR LTYELLOW; URINE GLUCOSE (UA) NEGATIVE (NEGATIVE); URINE KETONE NEGATIVE (NEGATIVE); URINE LEUK ESTERASE NEGATIVE (NEGATIVE); URINE NITRITE NEGATIVE (NEGATIVE); URINE PROTEIN NEGATIVE (NEGATIVE); URINE UROBILINOGEN NEGATIVE mg/dL (0.2-1.0)
[2017-01-30] MEDS: THIAMINE HCL 100 MG TABLET (FP) PO SCH (22:23)
[2017-01-30] MEDS: RANITIDINE HCL 150 MG TABLET (FP) PO SCH (22:24)
[2017-01-30] MEDS: LISINOPRIL 10 MG TABLET (FP) PO SCH (22:24)
[2017-01-30] MEDS: PHENobarbital 30 MG TABLET PO SCH (22:24)
[2017-01-31] MEDS: GABAPENTIN 300 MG CAPSULE (FP) PO SCH ×3 (06:30→22:20)
[2017-01-31] MEDS: chlordiazePOXIDE HCL 25 MG CAPSULE PO SCH ×4 (06:30→22:20)
[2017-01-31] MEDS: EMTRICITABINE 200MG/TENOFOVIR 300MG PO SCH (07:08)
[2017-01-31] MEDS: RITONAVIR 100 MG TABLET PO SCH (07:08)
[2017-01-31] MEDS: ATAZANAVIR SO4 300 MG CAPSULE PO SCH (07:08)
[2017-01-31] MEDS: METHADONE HCL 40 MG DISPERSABLE TABLET PO SCH (09:26)
--- NOTE | 2017-01-31 09:31 | EKG ---
Test Reason : Blood Pressure : / mmHG Vent. Rate : 076 BPM Atrial Rate : 076 BPM P-R Int : 142 ms QRS Dur : 090 ms QT Int : 396 ms P-R-T Axes : 057 014 027 degrees QTc Int : 445 ms NORMAL SINUS RHYTHM NORMAL ECG WHEN COMPARED WITH ECG OF 24-DEC-2016 13:46, NO SIGNIFICANT CHANGE WAS FOUND Confirmed by MD PURVI, PEDRO ([id number]) on 01/31/2017 9:31:00 AM Referred By: Confirmed By:PEDRO LOJA MD
[2017-01-31] MEDS: RANITIDINE HCL 150 MG TABLET (FP) PO SCH ×2 (10:08→22:20)
[2017-01-31] MEDS: PHENobarbital 30 MG TABLET PO SCH ×2 (10:08→22:20)
[2017-01-31] MEDS: SULFAMETHOXAZOLE/TRIMETHOPRIM 800MG/160MG D.S. TABLET PO SCH (10:08)
[2017-01-31] MEDS: PHENYTOIN NA EXTENDED 100 MG CAPSULE (FP) PO SCH (10:08)
[2017-01-31] MEDS: PRENATAL VITAMINS W/ FOLIC ACID TABLET (FP) PO SCH (10:08)
[2017-01-31] MEDS: NICOTINE 21 MG/24 HOURS TOPICAL PATCH TD SCH (10:08)
[2017-01-31] MEDS: LISINOPRIL 10 MG TABLET (FP) PO SCH ×2 (10:08→22:20)
[2017-01-31 11:03] LABS: ALBUMIN 3.2 g/dl (3.4-5.0); ANION GAP 10 (8-16); CALCIUM 8.2 mg/dL (8.5-10.1); CO2 26 mmol/L (21-32); GLUCOSE,RANDOM 94 mg/dL (74-106); SGOT/AST 30 U/L (15-37); SGPT/ALT 46 U/L (12-78)
[2017-01-31 11:04] LABS: ALK PHOS 208 U/L (45-117); BILIRUBIN,TOTAL 0.3 mg/dL (0.2-1.0); TOT PROT 7.2 g/dl (6.4-8.2)
[2017-01-31 11:07] LABS: MCH 32.9 pg (25.7-33.7); MCHC 33.3 g/dl (32.0-35.9); MEAN CELL VOLUME 98.8 fl (80-96); MEAN PLT VOLUME 9.5 fl (7.5-11.1); PLATELET COUNT 211 K/MM3 (134-434); RDW 13.4 % (11.9-15.9); WHITE BLOOD COUNT 3.6 K/mm3 (4.0-10.0)
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
[2017-01-31] MEDS: hydrOXYzine PAMOATE 25 MG CAPSULE (FP) PO PRN (11:28)
[2017-01-31] MEDS ORDERED: PNEUMOC 13-VAL CONJ-DIP CRM/PF 0.5 ML DISP.SYRIN IM ONE (12:00)
[2017-01-31] MEDS: chlordiazePOXIDE HCL 25 MG CAPSULE PO PRN ×2 (15:02→19:48)
--- NOTE | 2017-01-31 20:24 | PN ---
S CIWA - CIWA Score Nausea/Vomitin Muscle Tremors: 3 Anxiety: 5 Agitation: 4-Moderately Restless Paroxysmal Sweats: No Perspiration Orientation: 0-Oriented Tacttile Disturbances: 3-Moderate Itch/Numb/Burn Auditory Disturbances: 0-None Visual Disturbances: 2-Mild Sensitivity Headache: 0-None Present CIWA-Ar Total Score: 19 BHS Progress Note (SOAP) Subjective: Anxious, Tremors, Body aches, Sweating, Constipation. Objective: PT. A & O X 3, OBSERVED AMBULATING ON UNIT. NO ACUTE DISTRESS. PT. DENIES CHEST PAIN. 01/31/17 20:21 Vital Signs Temperature 96.8 F L 01/31/17 18:56 Pulse Rate 71 01/31/17 18:56 Respiratory Rate 18 01/31/17 18:56 Blood Pressure 96/55 01/31/17 18:56 O2 Sat by Pulse Oximetry (%) Laboratory Tests 01/30/17 01/31/17 01/31/17 20:00 06:00 06:00 WBC 3.6 L RBC 3.63 L Hgb 12.0 D Hct 35.9 MCV 98.8 H MCH 32.9 MCHC 33.3 RDW 13.4 Plt Count 211 MPV 9.5 Sodium 142 Potassium 3.9 Chloride 106 Carbon Dioxide 26 Anion Gap 10 BUN 15 D Creatinine 1.0 Creat Clearance w eGFR > 60 Random Glucose 94 Calcium 8.2 L Total Bilirubin 0.3 AST 30 ALT 46 D Alkaline Phosphatase 208 H Total Protein 7.2 Albumin 3.2 L Urine Color Ltyellow Urine Appearance Slcloudy Urine pH 5.0 Ur Specific [place] 1.020 Urine Protein Negative Urine Glucose (UA) Negative Urine Ketones Negative Urine Blood Negative Urine Nitrite Negative Urine Bilirubin Negative Urine Urobilinogen Negative Ur Leukocyte Esterase Negative LABS NOTED. RPR RESULT PENDING. 01/31/17 20:24 Assessment: 01/31/17 20:22 WITHDRAWAL SYMPTOMS. Plan: CONTINUE DETOX. REPEAT ALKALINE PHOSPHATASE ON 02/02/2017. MONITOR BP.
[2017-01-31] MEDS: THIAMINE HCL 100 MG TABLET (FP) PO SCH (22:20)
[2017-02-01] MEDS: METHADONE HCL 40 MG DISPERSABLE TABLET PO SCH (06:01)
[2017-02-01] MEDS: chlordiazePOXIDE HCL 25 MG CAPSULE PO SCH ×2 (06:02→10:30)
[2017-02-01] MEDS: GABAPENTIN 300 MG CAPSULE (FP) PO SCH ×3 (06:04→22:10)
[2017-02-01] MEDS: RITONAVIR 100 MG TABLET PO SCH (08:48)
[2017-02-01] MEDS: ATAZANAVIR SO4 300 MG CAPSULE PO SCH (08:48)
[2017-02-01] MEDS: EMTRICITABINE 200MG/TENOFOVIR 300MG PO SCH (08:48)
[2017-02-01] MEDS: hydrOXYzine PAMOATE 25 MG CAPSULE (FP) PO PRN ×2 (08:48→17:31)
[2017-02-01] MEDS: RANITIDINE HCL 150 MG TABLET (FP) PO SCH ×3 (08:49→22:10)
[2017-02-01] MEDS: PHENYTOIN NA EXTENDED 100 MG CAPSULE (FP) PO SCH (10:30)
[2017-02-01] MEDS: PRENATAL VITAMINS W/ FOLIC ACID TABLET (FP) PO SCH (10:30)
[2017-02-01] MEDS: PHENobarbital 30 MG TABLET PO SCH ×2 (10:30→22:10)
[2017-02-01] MEDS: FLUoxetine HCL 20 MG CAPSULE (FP) PO SCH (10:30)
[2017-02-01] MEDS: SULFAMETHOXAZOLE/TRIMETHOPRIM 800MG/160MG D.S. TABLET PO SCH (10:30)
[2017-02-01] MEDS: NICOTINE 21 MG/24 HOURS TOPICAL PATCH TD SCH (10:30)
[2017-02-01] MEDS: LISINOPRIL 10 MG TABLET (FP) PO SCH ×2 (10:32→22:10)
[2017-02-01] MEDS: chlordiazePOXIDE HCL 25 MG CAPSULE PO PRN (13:04)
--- NOTE | 2017-02-01 17:04 | PN ---
S CIWA - CIWA Score Nausea/Vomitin Muscle Tremors: 4-Moderate,w/Arms Extend Anxiety: 4-Mod. Anxious/Guarded Agitation: 4-Moderately Restless Paroxysmal Sweats: 3 Orientation: 0-Oriented Tacttile Disturbances: 1-Very Mild Itch/Numbness Auditory Disturbances: 0-None Visual Disturbances: 0-None Headache: 2-Mild CIWA-Ar Total Score: 21 BHS Progress Note (SOAP) Subjective: Sweating, chills, tremor, interrupted sleep Objective: 02/01/17 17:01 Last Vital Signs Temp Pulse Resp BP Pulse Ox 97.3 F L 86 18 112/69 02/01/17 13:20 02/01/17 13:20 02/01/17 13:20 02/01/17 13:20 Laboratory Tests 01/30/17 01/31/17 01/31/17 20:00 06:00 06:00 WBC 3.6 L RBC 3.63 L Hgb 12.0 D Hct 35.9 MCV 98.8 H MCH 32.9 MCHC 33.3 RDW 13.4 Plt Count 211 MPV 9.5 Sodium 142 Potassium 3.9 Chloride 106 Carbon Dioxide 26 Anion Gap 10 BUN 15 D Creatinine 1.0 Creat Clearance w eGFR > 60 Random Glucose 94 Calcium 8.2 L Total Bilirubin 0.3 AST 30 ALT 46 D Alkaline Phosphatase 208 H Total Protein 7.2 Albumin 3.2 L Urine Color Ltyellow Urine Appearance Slcloudy Urine pH 5.0 Ur Specific [place] 1.020 Urine Protein Negative Urine Glucose (UA) Negative Urine Ketones Negative Urine Blood Negative Urine Nitrite Negative Urine Bilirubin Negative Urine Urobilinogen Negative Ur Leukocyte Esterase Negative RPR Titer 01/31/17 06:00 WBC RBC Hgb Hct MCV MCH MCHC RDW Plt Count MPV Sodium Potassium Chloride Carbon Dioxide Anion Gap BUN Creatinine Creat Clearance w eGFR Random Glucose Calcium Total Bilirubin AST ALT Alkaline Phosphatase Total Protein Albumin Urine Color Urine Appearance Urine pH Ur Specific [place] Urine Protein Urine Glucose (UA) Urine Ketones Urine Blood Urine Nitrite Urine Bilirubin Urine Urobilinogen Ur Leukocyte Esterase RPR Titer Nonreactive Labs noted Assessment: 02/01/17 17:02 Withdrawal symptoms Plan: Continue detox Encouraged to drink lots of water
[2017-02-01] MEDS: chlordiazePOXIDE 5 MG CAPSULE PO SCH ×2 (17:29→22:10)
[2017-02-01] MEDS: THIAMINE HCL 100 MG TABLET (FP) PO SCH (22:10)
[2017-02-02] MEDS: hydrOXYzine PAMOATE 25 MG CAPSULE (FP) PO PRN ×3 (01:53→22:38)
[2017-02-02] MEDS: GABAPENTIN 300 MG CAPSULE (FP) PO SCH ×3 (05:45→22:36)
[2017-02-02] MEDS: METHADONE HCL 40 MG DISPERSABLE TABLET PO SCH (05:45)
[2017-02-02] MEDS: chlordiazePOXIDE 5 MG CAPSULE PO SCH ×2 (05:45→10:59)
[2017-02-02] MEDS: RITONAVIR 100 MG TABLET PO SCH (07:28)
[2017-02-02] MEDS: EMTRICITABINE 200MG/TENOFOVIR 300MG PO SCH (07:28)
[2017-02-02] MEDS: ATAZANAVIR SO4 300 MG CAPSULE PO SCH (07:28)
--- NOTE | 2017-02-02 08:41 | PN ---
BHS Progress Note (SOAP) Subjective: nausea, sweats, interrupted slee0p, anxiety, tremors Objective: 02/02/17 08:40 Vital Signs - 8 hr 02/02/17 02/02/17 03:41 06:30 Temperature 97.8 F Pulse Rate 84 Respiratory 18 18 Rate Blood Pressure 132/91 Laboratory Tests 01/30/17 01/31/17 01/31/17 20:00 06:00 06:00 WBC 3.6 L RBC 3.63 L Hgb 12.0 D Hct 35.9 MCV 98.8 H MCH 32.9 MCHC 33.3 RDW 13.4 Plt Count 211 MPV 9.5 Sodium 142 Potassium 3.9 Chloride 106 Carbon Dioxide 26 Anion Gap 10 BUN 15 D Creatinine 1.0 Creat Clearance w eGFR > 60 Random Glucose 94 Calcium 8.2 L Total Bilirubin 0.3 AST 30 ALT 46 D Alkaline Phosphatase 208 H Total Protein 7.2 Albumin 3.2 L Urine Color Ltyellow Urine Appearance Slcloudy Urine pH 5.0 Ur Specific [place] 1.020 Urine Protein Negative Urine Glucose (UA) Negative Urine Ketones Negative Urine Blood Negative Urine Nitrite Negative Urine Bilirubin Negative Urine Urobilinogen Negative Ur Leukocyte Esterase Negative RPR Titer 01/31/17 06:00 WBC RBC Hgb Hct MCV MCH MCHC RDW Plt Count MPV Sodium Potassium Chloride Carbon Dioxide Anion Gap BUN Creatinine Creat Clearance w eGFR Random Glucose Calcium Total Bilirubin AST ALT Alkaline Phosphatase Total Protein Albumin Urine Color Urine Appearance Urine pH Ur Specific [place] Urine Protein Urine Glucose (UA) Urine Ketones Urine Blood Urine Nitrite Urine Bilirubin Urine Urobilinogen Ur Leukocyte Esterase RPR Titer Nonreactive Assessment: 02/02/17 08:40 withdrawal sx Plan: cont detox, prn libirum,fluids
[2017-02-02] MEDS: SULFAMETHOXAZOLE/TRIMETHOPRIM 800MG/160MG D.S. TABLET PO SCH (10:59)
[2017-02-02] MEDS: PHENYTOIN NA EXTENDED 100 MG CAPSULE (FP) PO SCH (10:59)
[2017-02-02] MEDS: LISINOPRIL 10 MG TABLET (FP) PO SCH ×2 (11:00→22:36)
[2017-02-02] MEDS: FLUoxetine HCL 20 MG CAPSULE (FP) PO SCH (11:00)
[2017-02-02] MEDS: PRENATAL VITAMINS W/ FOLIC ACID TABLET (FP) PO SCH (11:00)
[2017-02-02] MEDS: RANITIDINE HCL 150 MG TABLET (FP) PO SCH ×4 (11:00→23:11)
[2017-02-02] MEDS: NICOTINE 21 MG/24 HOURS TOPICAL PATCH TD SCH (11:01)
[2017-02-02] MEDS: PHENobarbital 30 MG TABLET PO SCH ×2 (11:01→22:36)
[2017-02-02] MEDS ORDERED: chlordiazePOXIDE HCL 25 MG CAPSULE PO ONE (13:00)
[2017-02-02] MEDS: chlordiazePOXIDE HCL 10 MG CAPSULE PO SCH ×2 (17:48→22:36)
[2017-02-02] MEDS: MAG HYDROX/AL HYDROX/SIMETH 30 ML UNIT-DOSE CUP PO PRN (17:49)
[2017-02-02] MEDS: THIAMINE HCL 100 MG TABLET (FP) PO SCH (22:35)
[2017-02-03] MEDS: METHADONE HCL 40 MG DISPERSABLE TABLET PO SCH (05:54)
[2017-02-03] MEDS: GABAPENTIN 300 MG CAPSULE (FP) PO SCH (05:54)
[2017-02-03] MEDS: chlordiazePOXIDE HCL 10 MG CAPSULE PO SCH (05:56)
[2017-02-03 06:40] VITALS: BP 140/92; PULSE 79; TEMP 97.8
[2017-02-03] MEDS: EMTRICITABINE 200MG/TENOFOVIR 300MG PO SCH (07:18)
[2017-02-03] MEDS: ATAZANAVIR SO4 300 MG CAPSULE PO SCH (07:18)
[2017-02-03] MEDS: RITONAVIR 100 MG TABLET PO SCH (07:18)
--- NOTE | 2017-02-03 16:46 | DS ---
[facility] Detox Discharge Summary Admission Date: 01/30/17 Discharge Date: 02/03/17 - History Present History: Alcohol Dependence, Cocaine Dependence, MMTP Additional Comments: PATIENT ELECTING TO GO HOME BECAUSE HE NEEDS TO DEAL WITH HOUSING ISSUE AT THIS TIME. PATIENT ADVISED TO CONSIDER 12-STEP / NA OUTPATIENT SUPPORT GROUPS FOR AFTERCARE. PATIENT NOTES THAT HE IS INTERESTED IN GOING TO [facility] IN FUTURE AND WILL LIKELY PURSUE REHAB ADMISSION THERE SOON. PATIENT WAS DISCHARGED FROM UNIT IN STABLE MEDICAL CONDITION. Pertinent Past History: Asthma, HTN, HIV, Neuropathy, Insomnia, MMTP, GERD. - Physical Exam Results Vital Signs: Vital Signs Temperature 97.8 F 02/03/17 06:40 Pulse Rate 79 02/03/17 06:40 Respiratory Rate 18 02/03/17 06:40 Blood Pressure 140/92 02/03/17 06:40 O2 Sat by Pulse Oximetry (%) Pertinent Admission Physical Exam Findings: WITHDRAWAL SYMPTOMS. Laboratory Tests 01/30/17 01/31/17 01/31/17 20:00 06:00 06:00 WBC 3.6 L RBC 3.63 L Hgb 12.0 D Hct 35.9 MCV 98.8 H MCH 32.9 MCHC 33.3 RDW 13.4 Plt Count 211 MPV 9.5 Sodium 142 Potassium 3.9 Chloride 106 Carbon Dioxide 26 Anion Gap 10 BUN 15 D Creatinine 1.0 Creat Clearance w eGFR > 60 Random Glucose 94 Calcium 8.2 L Total Bilirubin 0.3 AST 30 ALT 46 D Alkaline Phosphatase 208 H Total Protein 7.2 Albumin 3.2 L Urine Color Ltyellow Urine Appearance Slcloudy Urine pH 5.0 Ur Specific [place] 1.020 Urine Protein Negative Urine Glucose (UA) Negative Urine Ketones Negative Urine Blood Negative Urine Nitrite Negative Urine Bilirubin Negative Urine Urobilinogen Negative Ur Leukocyte Esterase Negative RPR Titer 01/31/17 02/02/17 06:00 07:00 WBC RBC Hgb Hct MCV MCH MCHC RDW Plt Count MPV Sodium Potassium Chloride Carbon Dioxide Anion Gap BUN Creatinine Creat Clearance w eGFR Random Glucose Calcium Total Bilirubin AST ALT Alkaline Phosphatase 168 H Total Protein Albumin Urine Color Urine Appearance Urine pH Ur Specific [place] Urine Protein Urine Glucose (UA) Urine Ketones Urine Blood Urine Nitrite Urine Bilirubin Urine Urobilinogen Ur Leukocyte Esterase RPR Titer Nonreactive LABS NOTED. - Treatment Hospital Course: Detox Protocol Followed, Detoxed Safely, Responded well, Discharged Condition Good Patient has Accepted a Rehab Referral to: PT. GOING HOME. WILL PURSUE REHAB ADMISSION AT [facility] AT LATER DATE. - Medication Discharge Medications: Ambulatory Orders Albuterol Sulfate Inhaler - [Ventolin HFA Inhaler -] 2 inh PO Q4H PRN 09/10/16 Gabapentin [Neurontin -] 300 mg PO Q8H 09/10/16 Phenobarbital - 30 mg PO BID 09/10/16 Sulfamethoxazole/Trimethoprim [Bactrim DS -] 1 tab PO DAILY 09/10/16 Lisinopril [Prinivil] 10 mg PO BID tablet 09/12/16 Atazanavir [Reyataz -] 300 mg PO DAILY 12/24/16 Emtricitabine/Tenofovir [Truvada -] 1 tab PO DAILY 12/24/16 Fluoxetine HCl [Prozac -] 20 mg PO DAILY 12/24/16 Phenytoin Na Extended [Dilantin -] 300 mg PO DAILY 12/24/16 Ranitidine [Zantac -] 150 mg PO BID 12/24/16 Ritonavir [Norvir -] 100 mg PO DAILY 12/24/16 - Diagnosis (1) Alcohol dependence with uncomplicated withdrawal Status: Acute (2) Cocaine dependence Status: Acute Qualifiers: Substance use status: uncomplicated Qualified Code(s): F14.20 - Cocaine dependence, uncomplicated (3) Insomnia Status: Acute Qualifiers: Insomnia type: unspecified Qualified Code(s): G47.00 - Insomnia, unspecified (4) Nicotine dependence Status: Chronic Qualifiers: Nicotine product type: cigarettes Substance use status: uncomplicated Qualified Code(s): F17.210 - Nicotine dependence, cigarettes, uncomplicated (5) Opioid dependence on agonist therapy Status: Chronic (6) Substance induced mood disorder Status: Acute (7) Anxiety and depression Status: Chronic (8) Asthma Status: Chronic Qualifiers: Asthma severity: mild intermittent Asthma complication type: uncomplicated Qualified Code(s): J45.20 - Mild intermittent asthma, uncomplicated (9) Depressive disorder Status: Chronic (10) Essential hypertension Status: Chronic (11) GERD (gastroesophageal reflux disease) Status: Chronic Qualifiers: Esophagitis presence: esophagitis presence not specified Qualified Code(s): K21.9 - Gastro-esophageal reflux disease without esophagitis (12) HIV (human immunodeficiency virus infection) Status: Chronic (13) Methadone maintenance therapy patient Status: Chronic (14) Neuropathy Status: Chronic - AMA Did Patient Leave Against Medical Advice: No
== END 2017-02-03 07:20 | disposition home or self-care (01) | DRG 756 ==
LOC: YASAS 12:23 → Y3N 13:51
PROVIDERS: ADMIT Internal Medicine Addiction Medicine; ATTEND Internal Medicine Addiction Medicine
PROC: HZ2ZZZZ Detoxification Services for Substance Abuse Treatment (ICD-10-PCS; principal; 2017-01-30)
DX: F41.8 Other specified anxiety disorders (principal); F10.230 Alcohol dependence with withdrawal, uncomplicated; F11.20 Opioid dependence, uncomplicated; F14.20 Cocaine dependence, uncomplicated; F17.210 Nicotine dependence, cigarettes, uncomplicated; F19.24 Other psychoactive substance dependence with psychoactive substance-induced mood disorder; F32.9 Major depressive disorder, single episode, unspecified; J45.20 Mild intermittent asthma, uncomplicated; I10 Essential (primary) hypertension; G47.00 Insomnia, unspecified; K21.9 Gastro-esophageal reflux disease without esophagitis; Z21 Asymptomatic human immunodeficiency virus [HIV] infection status; G62.9 Polyneuropathy, unspecified; Z86.69 Personal history of other diseases of the nervous system and sense organs; Z87.898 Personal history of other specified conditions; Z91.013 Allergy to seafood
CPT/HCPCS: 36415; 80053; 81003; 84075; 85027; 86593; 90670; 93005; 93010

== ENCOUNTER 2017-04-10 13:31 | Inpatient (IN) | payer OTHER ==
[2017-04-10 16:11] VITALS: BMI 29.0
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
[2017-04-10] MEDS ORDERED: MAGNESIUM CITRATE 300 ML BOTTLE PO PRN (18:46)
[2017-04-10] MEDS ORDERED: ACETAMINOPHEN 325 MG TABLET (FP) PO PRN (18:46)
[2017-04-10] MEDS ORDERED: MENTHOL/PHENOL 1 EACH UD MM PRN (18:46)
[2017-04-10] MEDS ORDERED: hydrOXYzine PAMOATE 50 MG CAPSULE (FP) PO PRN (18:46)
[2017-04-10] MEDS ORDERED: IBUPROFEN 400 MG TABLET (FP) PO PRN (18:46)
[2017-04-10] MEDS ORDERED: P-EPHED 60MG/TRIPROLIDI 2.5MG TABLET PO PRN (18:46)
[2017-04-10] MEDS ORDERED: NICOTINE POLACRILEX 2 MG GUM BC PRN (18:46)
[2017-04-10] MEDS ORDERED: MAG HYDROX/AL HYDROX/SIMETH 30 ML UNIT-DOSE CUP PO PRN (18:46)
[2017-04-10] MEDS ORDERED: guaiFENesin/D-METHORPHAN HB 10 ML UNIT-DOSE CUPS PO PRN (18:46)
[2017-04-10] MEDS ORDERED: chlordiazePOXIDE HCL 25 MG CAPSULE PO ONE (18:46)
[2017-04-10] MEDS ORDERED: LOPERAMIDE HCL 2 MG CAPSULE PO PRN (18:46)
[2017-04-10] MEDS ORDERED: MAGNESIUM HYDROX 2400MG/30ML ORAL SUSPENSION 30 ML CUP PO PRN (18:46)
[2017-04-10] MEDS ORDERED: ALBUTEROL SO4 18 GM HFA INHALER IH PRN (18:50)
[2017-04-10 20:55] LABS: URINE APPEARANCE CLEAR; URINE BILIRUBIN NEGATIVE (NEGATIVE); URINE BLOOD NEGATIVE (NEGATIVE); URINE COLOR YELLOW; URINE GLUCOSE (UA) NEGATIVE (NEGATIVE); URINE KETONE NEGATIVE (NEGATIVE); URINE NITRITE NEGATIVE (NEGATIVE); URINE PROTEIN NEGATIVE (NEGATIVE); URINE UROBILINOGEN NEGATIVE mg/dL (0.2-1.0)
[2017-04-10] MEDS: chlordiazePOXIDE HCL 25 MG CAPSULE PO SCH (22:02)
[2017-04-10] MEDS: PHENobarbital 30 MG TABLET PO SCH (22:03)
[2017-04-10] MEDS: RANITIDINE HCL 150 MG TABLET (FP) PO SCH (22:03)
[2017-04-10] MEDS: THIAMINE HCL 100 MG TABLET (FP) PO SCH (22:03)
[2017-04-11] MEDS: chlordiazePOXIDE HCL 25 MG CAPSULE PO SCH ×4 (05:56→22:32)
--- NOTE | 2017-04-11 10:14 | PN ---
S CIWA - CIWA Score Nausea/Vomitin Muscle Tremors: 4-Moderate,w/Arms Extend Anxiety: 4-Mod. Anxious/Guarded Agitation: 3 Paroxysmal Sweats: 3 Orientation: 0-Oriented Tacttile Disturbances: 0-None Auditory Disturbances: 0-None Visual Disturbances: 0-None Headache: 0-None Present CIWA-Ar Total Score: 16 BHS Progress Note (SOAP) Subjective: Sweating,anxiety,tremors,interrupted sleep,restless Objective: 04/11/17 10:13 Vital Signs - 8 hr 04/11/17 04/11/17 03:30 06:00 Temperature 98.1 F Pulse Rate 81 Respiratory 18 18 Rate Blood Pressure 153/93 Laboratory Tests 04/10/17 19:00 Urine Color Yellow Urine Appearance Clear Urine pH 5.0 Ur Specific [place] 1.025 Urine Protein Negative Urine Glucose (UA) Negative Urine Ketones Negative Urine Blood Negative Urine Nitrite Negative Urine Bilirubin Negative Urine Urobilinogen Negative labs noted Assessment: 04/11/17 10:14 Withdrawal sx. Plan: Continue detox
[2017-04-11] MEDS ORDERED: METHADONE HCL 10 MG TABLET PO SCH (10:15)
[2017-04-11 10:37] LABS: MEAN PLT VOLUME 8.9 fl (7.5-11.1)
[2017-04-11 10:40] LABS: MCH 33.7 pg (25.7-33.7); MCHC 33.9 g/dl (32.0-35.9); MEAN CELL VOLUME 99.3 fl (80-96); PLATELET COUNT 200 K/MM3 (134-434); RDW 13.2 % (11.9-15.9)
[2017-04-11 10:49] LABS: ANION GAP 5 (8-16); CO2 30 mmol/L (21-32); GLUCOSE,RANDOM 90 mg/dL (74-106); SGOT/AST 12 U/L (15-37); SGPT/ALT 21 U/L (12-78)
[2017-04-11 10:52] LABS: ALK PHOS 193 U/L (45-117); BILIRUBIN,TOTAL 0.6 mg/dL (0.2-1.0); CREATININE 0.8 mg/dL (0.7-1.3); TOT PROT 6.9 g/dl (6.4-8.2)
[2017-04-11] MEDS: PHENobarbital 30 MG TABLET PO SCH ×2 (11:05→22:32)
[2017-04-11] MEDS: SULFAMETHOXAZOLE/TRIMETHOPRIM 800MG/160MG D.S. TABLET PO SCH (11:06)
[2017-04-11] MEDS: PRENATAL VITAMINS W/ FOLIC ACID TABLET (FP) PO SCH (11:06)
[2017-04-11] MEDS: PHENYTOIN NA EXTENDED 100 MG CAPSULE (FP) PO SCH (11:06)
[2017-04-11] MEDS: RANITIDINE HCL 150 MG TABLET (FP) PO SCH ×2 (11:06→22:32)
[2017-04-11] MEDS: amLODIPine BESYLATE 10 MG TABLET (FP) PO SCH (11:07)
[2017-04-11] MEDS: ATAZANAVIR SO4 300 MG CAPSULE PO SCH (11:07)
[2017-04-11] MEDS: TAMSULOSIN HCL 0.4 MG CAP.ER.24H (FP) PO SCH (11:07)
[2017-04-11] MEDS: HYDROCHLOROTHIAZIDE 25 MG TABLET (FP) PO SCH (11:08)
[2017-04-11] MEDS: NICOTINE 21 MG/24 HOURS TOPICAL PATCH TD SCH (11:09)
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
[2017-04-11] MEDS ORDERED: METHADONE HCL 10 MG TABLET ONE (11:57)
[2017-04-11] MEDS ORDERED: METHADONE HCL 40 MG DISPERSABLE TABLET ONE (11:57)
[2017-04-11] MEDS ORDERED: FLU VACCINE QUAD 60 MCG/0.5 ML (MDV 17-18) IM ONE ×3 (12:00→15:45)
[2017-04-11] MEDS ORDERED: METHADONE 120 MG, METHADONE 10 MG PO ONE (12:00)
[2017-04-11] MEDS ORDERED: METHADONE 120 MG, METHADONE 10 MG PO SCH (12:00)
[2017-04-11] MEDS: RITONAVIR 100 MG TABLET PO SCH (15:44)
[2017-04-11] MEDS: EMTRICITABINE 200MG/TENOFOVIR 300MG PO SCH (15:45)
[2017-04-11] MEDS: FLUoxetine HCL 20 MG CAPSULE (FP) PO SCH (15:48)
[2017-04-11 16:35] LABS: URINE LEUK ESTERASE Negative (NEGATIVE)
[2017-04-11] MEDS: THIAMINE HCL 100 MG TABLET (FP) PO SCH (22:32)
[2017-04-11] MEDS: ZOLPIDEM TARTRATE 10 MG TABLET (PARK CARE ONLY) PO PRN (22:32)
[2017-04-12] MEDS ORDERED: METHADONE HCL 10 MG TABLET ONE (05:29)
[2017-04-12] MEDS ORDERED: METHADONE HCL 40 MG DISPERSABLE TABLET ONE (05:29)
[2017-04-12] MEDS: METHADONE 120 MG, METHADONE 10 MG PO SCH (05:34)
[2017-04-12] MEDS: chlordiazePOXIDE HCL 25 MG CAPSULE PO SCH ×3 (05:35→17:30)
[2017-04-12] MEDS: ATAZANAVIR SO4 300 MG CAPSULE PO SCH (08:06)
[2017-04-12] MEDS: RITONAVIR 100 MG TABLET PO SCH (08:06)
[2017-04-12] MEDS: EMTRICITABINE 200MG/TENOFOVIR 300MG PO SCH (08:07)
[2017-04-12] MEDS: TAMSULOSIN HCL 0.4 MG CAP.ER.24H (FP) PO SCH (08:08)
[2017-04-12] MEDS: chlordiazePOXIDE HCL 25 MG CAPSULE PO PRN ×2 (08:08→20:09)
[2017-04-12] MEDS: PHENYTOIN NA EXTENDED 100 MG CAPSULE (FP) PO SCH (10:07)
[2017-04-12] MEDS: amLODIPine BESYLATE 10 MG TABLET (FP) PO SCH (10:07)
[2017-04-12] MEDS: FLUoxetine HCL 20 MG CAPSULE (FP) PO SCH (10:07)
[2017-04-12] MEDS: SULFAMETHOXAZOLE/TRIMETHOPRIM 800MG/160MG D.S. TABLET PO SCH (10:07)
[2017-04-12] MEDS: PHENobarbital 30 MG TABLET PO SCH ×2 (10:08→22:06)
[2017-04-12] MEDS: PRENATAL VITAMINS W/ FOLIC ACID TABLET (FP) PO SCH (10:08)
[2017-04-12] MEDS: NICOTINE 21 MG/24 HOURS TOPICAL PATCH TD SCH (10:08)
[2017-04-12] MEDS: HYDROCHLOROTHIAZIDE 25 MG TABLET (FP) PO SCH (10:08)
[2017-04-12] MEDS: RANITIDINE HCL 150 MG TABLET (FP) PO SCH ×2 (10:10→22:06)
--- NOTE | 2017-04-12 12:12 | PN ---
[facility] CIWA - CIWA Score Nausea/Vomitin-Mild Nausea/No Vomiting Muscle Tremors: 4-Moderate,w/Arms Extend Anxiety: 4-Mod. Anxious/Guarded Agitation: 3 Paroxysmal Sweats: 3 Orientation: 0-Oriented Tacttile Disturbances: 0-None Auditory Disturbances: 0-None Visual Disturbances: 0-None Headache: 0-None Present CIWA-Ar Total Score: 15 BHS Progress Note (SOAP) Subjective: Sweating,anxiety,tremors,interrupted sleep,restless Objective: 04/12/17 12:11 Vital Signs - 8 hr 04/12/17 04/12/17 06:00 09:39 Temperature 97.9 F 97.9 F Pulse Rate 84 94 H Respiratory 18 18 Rate Blood Pressure 140/88 134/88 Laboratory Last Values WBC 3.0 K/mm3 (4.0-10.0) L 04/11/17 07:40 RBC 3.94 M/mm3 (4.00-5.60) L 04/11/17 07:40 Hgb 13.3 GM/dL (11.7-16.9) D 04/11/17 07:40 Hct 39.1 % (35.4-49) 04/11/17 07:40 MCV 99.3 fl (80-96) H 04/11/17 07:40 MCH 33.7 pg (25.7-33.7) 04/11/17 07:40 MCHC 33.9 g/dl (32.0-35.9) 04/11/17 07:40 RDW 13.2 % (11.9-15.9) 04/11/17 07:40 Plt Count 200 K/MM3 (134-434) 04/11/17 07:40 MPV 8.9 fl (7.5-11.1) 04/11/17 07:40 Sodium 139 mmol/L (136-145) 04/11/17 07:40 Potassium 4.0 mmol/L (3.5-5.1) 04/11/17 07:40 Chloride 104 mmol/L (98-107) 04/11/17 07:40 Carbon Dioxide 30 mmol/L (21-32) 04/11/17 07:40 Anion Gap 5 (8-16) L 04/11/17 07:40 BUN 15 mg/dL (7-18) 04/11/17 07:40 Creatinine 0.8 mg/dL (0.7-1.3) 04/11/17 07:40 Creat Clearance w eGFR > 60 (>60) 04/11/17 07:40 Random Glucose 90 mg/dL (74-106) 04/11/17 07:40 Calcium 8.0 mg/dL (8.5-10.1) L 04/11/17 07:40 Total Bilirubin 0.6 mg/dL (0.2-1.0) D 04/11/17 07:40 AST 12 U/L (15-37) L D 04/11/17 07:40 ALT 21 U/L (12-78) D 04/11/17 07:40 Alkaline Phosphatase 193 U/L (45-117) H 04/11/17 07:40 Total Protein 6.9 g/dl (6.4-8.2) 04/11/17 07:40 Albumin 3.0 g/dl (3.4-5.0) L 04/11/17 07:40 Urine Color Yellow 04/10/17 19:00 Urine Appearance Clear 04/10/17 19:00 Urine pH 5.0 (5.0-8.0) 04/10/17 19:00 Ur Specific [place] 1.025 (1.001-1.035) 04/10/17 19:00 Urine Protein Negative (NEGATIVE) 04/10/17 19:00 Urine Glucose (UA) Negative (NEGATIVE) 04/10/17 19:00 Urine Ketones Negative (NEGATIVE) 04/10/17 19:00 Urine Blood Negative (NEGATIVE) 04/10/17 19:00 Urine Nitrite Negative (NEGATIVE) 04/10/17 19:00 Urine Bilirubin Negative (NEGATIVE) 04/10/17 19:00 Urine Urobilinogen Negative mg/dL (0.2-1.0) 04/10/17 19:00 Ur Leukocyte Esterase Negative (NEGATIVE) 04/10/17 19:00 Phenytoin 13.3 ug/ml (10.0-20.0) D 04/11/17 07:40 RPR Titer Nonreactive (NONREACTIVE) 04/11/17 07:40 labs noted Assessment: 04/12/17 12:12 Withdrawal sx. Plan: Continue detox
[2017-04-12] MEDS: ZOLPIDEM TARTRATE 10 MG TABLET (PARK CARE ONLY) PO PRN (22:05)
[2017-04-12] MEDS: chlordiazePOXIDE 5 MG CAPSULE PO SCH (22:06)
[2017-04-12] MEDS: THIAMINE HCL 100 MG TABLET (FP) PO SCH (22:06)
[2017-04-13] MEDS: chlordiazePOXIDE HCL 25 MG CAPSULE PO PRN (02:59)
[2017-04-13] MEDS ORDERED: METHADONE HCL 40 MG DISPERSABLE TABLET ONE (04:50)
[2017-04-13] MEDS ORDERED: METHADONE HCL 10 MG TABLET ONE (04:50)
[2017-04-13] MEDS: METHADONE 120 MG, METHADONE 10 MG PO SCH (05:59)
[2017-04-13] MEDS: chlordiazePOXIDE 5 MG CAPSULE PO SCH ×3 (06:00→17:41)
[2017-04-13] MEDS: ATAZANAVIR SO4 300 MG CAPSULE PO SCH (08:02)
[2017-04-13] MEDS: TAMSULOSIN HCL 0.4 MG CAP.ER.24H (FP) PO SCH (08:03)
[2017-04-13] MEDS: RITONAVIR 100 MG TABLET PO SCH (08:03)
--- NOTE | 2017-04-13 09:36 | EKG ---
Test Reason : Blood Pressure : / mmHG Vent. Rate : 087 BPM Atrial Rate : 087 BPM P-R Int : 146 ms QRS Dur : 084 ms QT Int : 382 ms P-R-T Axes : 051 -34 036 degrees QTc Int : 459 ms NORMAL SINUS RHYTHM LEFT AXIS DEVIATION LOW VOLTAGE QRS POSSIBLE ANTEROLATERAL INFARCT , AGE UNDETERMINED ABNORMAL ECG WHEN COMPARED WITH ECG OF 30-JAN-2017 15:19, BORDERLINE CRITERIA FOR ANTERIOR INFARCT ARE NOW PRESENT BORDERLINE CRITERIA FOR ANTEROLATERAL INFARCT ARE NOW PRESENT Confirmed by CAPO CHACKO, BRINA ([id number]) on 04/13/2017 9:35:50 AM Referred By: Confirmed By:BRINA SCANLON MD
--- NOTE | 2017-04-13 09:50 | PN ---
BHS Progress Note (SOAP) Subjective: anxiety sweats body aches Objective: 04/13/17 09:50 Vital Signs Temperature 97.9 F 04/13/17 07:18 Pulse Rate 87 04/13/17 07:18 Respiratory Rate 18 04/13/17 07:18 Blood Pressure 119/85 04/13/17 07:18 O2 Sat by Pulse Oximetry (%) [id number] ambulating no acute distress Assessment: 04/13/17 09:50 mild withdrawal sx Plan: continue detox increase fluids d/c in am
[2017-04-13] MEDS: FLUoxetine HCL 20 MG CAPSULE (FP) PO SCH (10:33)
[2017-04-13] MEDS: HYDROCHLOROTHIAZIDE 25 MG TABLET (FP) PO SCH (10:33)
[2017-04-13] MEDS: PHENYTOIN NA EXTENDED 100 MG CAPSULE (FP) PO SCH (10:33)
[2017-04-13] MEDS: RANITIDINE HCL 150 MG TABLET (FP) PO SCH ×2 (10:33→22:17)
[2017-04-13] MEDS: PRENATAL VITAMINS W/ FOLIC ACID TABLET (FP) PO SCH (10:33)
[2017-04-13] MEDS: PHENobarbital 30 MG TABLET PO SCH ×2 (10:33→22:17)
[2017-04-13] MEDS: SULFAMETHOXAZOLE/TRIMETHOPRIM 800MG/160MG D.S. TABLET PO SCH (10:33)
[2017-04-13] MEDS: NICOTINE 21 MG/24 HOURS TOPICAL PATCH TD SCH (10:34)
[2017-04-13] MEDS: amLODIPine BESYLATE 10 MG TABLET (FP) PO SCH (10:34)
[2017-04-13] MEDS: EMTRICITABINE 200MG/TENOFOVIR 300MG PO SCH (10:36)
[2017-04-13] MEDS: THIAMINE HCL 100 MG TABLET (FP) PO SCH (22:17)
[2017-04-13] MEDS: chlordiazePOXIDE HCL 10 MG CAPSULE PO SCH (22:17)
[2017-04-13] MEDS: ZOLPIDEM TARTRATE 10 MG TABLET (PARK CARE ONLY) PO PRN (22:17)
[2017-04-14] MEDS ORDERED: METHADONE HCL 40 MG DISPERSABLE TABLET ONE (04:48)
[2017-04-14] MEDS ORDERED: METHADONE HCL 10 MG TABLET ONE (04:48)
[2017-04-14] MEDS: chlordiazePOXIDE HCL 10 MG CAPSULE PO SCH (05:05)
[2017-04-14] MEDS: METHADONE 120 MG, METHADONE 10 MG PO SCH (05:05)
[2017-04-14] MEDS: ATAZANAVIR SO4 300 MG CAPSULE PO SCH (08:17)
[2017-04-14] MEDS: TAMSULOSIN HCL 0.4 MG CAP.ER.24H (FP) PO SCH (08:17)
[2017-04-14] MEDS: RITONAVIR 100 MG TABLET PO SCH (08:17)
[2017-04-14] MEDS: EMTRICITABINE 200MG/TENOFOVIR 300MG PO SCH (08:18)
--- NOTE | 2017-04-14 08:39 | DS ---
[facility] Detox Discharge Summary Admission Date: 04/10/17 Discharge Date: 04/14/17 - History Present History: Alcohol Dependence, Cocaine Dependence, Opioid Dependence, MMTP - Physical Exam Results Vital Signs: Vital Signs Temperature 98.3 F 04/14/17 06:30 Pulse Rate 83 04/14/17 06:30 Respiratory Rate 18 04/14/17 06:30 Blood Pressure 129/84 04/14/17 06:30 O2 Sat by Pulse Oximetry (%) - Treatment Hospital Course: Detox Protocol Followed, Detoxed Safely, Responded well, Discharged Condition Good, Rehab Referral Accepted - Medication Discharge Medications: Ambulatory Orders Albuterol Sulfate Inhaler - [Ventolin HFA Inhaler -] 2 inh PO Q4H PRN 09/10/16 Gabapentin [Neurontin -] 300 mg PO Q8H 09/10/16 Phenobarbital - 30 mg PO BID 09/10/16 Sulfamethoxazole/Trimethoprim [Bactrim DS -] 1 tab PO DAILY 09/10/16 Atazanavir [Reyataz -] 300 mg PO DAILY 12/24/16 Emtricitabine/Tenofovir [Truvada -] 1 tab PO DAILY 12/24/16 Phenytoin Na Extended [Dilantin -] 300 mg PO DAILY 12/24/16 Ranitidine [Zantac -] 150 mg PO BID 12/24/16 Ritonavir [Norvir -] 100 mg PO DAILY 12/24/16 Amlodipine Besylate [Norvasc -] 10 mg PO DAILY 04/10/17 Hydrochlorothiazide [Hctz -] 25 mg PO DAILY 04/10/17 Tamsulosin HCl [Flomax] 0.4 mg PO DAILY 04/10/17 Zolpidem Tartrate [Ambien] 10 mg PO HS 04/10/17 Fluoxetine HCl [Prozac] 20 mg PO DAILY #30 capsule 04/11/17 - Diagnosis (1) Alcohol dependence with uncomplicated withdrawal Current Visit: Yes Status: Chronic (2) Opioid dependence on agonist therapy Current Visit: Yes Status: Acute (3) Substance-induced sleep disorder Current Visit: Yes Status: Acute (4) Asthma Current Visit: Yes Status: Chronic Qualifiers: Asthma severity: mild intermittent Asthma complication type: uncomplicated (5) BPH (benign prostatic hyperplasia) Current Visit: Yes Status: Chronic Qualifiers: Lower urinary tract symptom detail: unspecified (6) Cocaine dependence Current Visit: Yes Status: Chronic Qualifiers: Substance use status: uncomplicated Qualified Code(s): F14.20 - Cocaine dependence, uncomplicated (7) Essential hypertension Current Visit: Yes Status: Chronic (8) GERD (gastroesophageal reflux disease) Current Visit: Yes Status: Chronic Qualifiers: Esophagitis presence: esophagitis presence not specified Qualified Code(s) : K21.9 - Gastro-esophageal reflux disease without esophagitis (9) HIV (human immunodeficiency virus infection) Current Visit: Yes Status: Chronic (10) Neuropathy Current Visit: Yes Status: Chronic (11) Nicotine dependence Current Visit: Yes Status: Chronic Qualifiers: Nicotine product type: cigarettes Substance use status: uncomplicated Qualified Code(s): F17.210 - Nicotine dependence, cigarettes, uncomplicated (12) Opioid dependence on agonist therapy Current Visit: Yes Status: Chronic (13) Seizure Current Visit: Yes Status: Chronic (14) Dry skin Current Visit: No Status: Acute (15) Insomnia Current Visit: No Status: Acute Qualifiers: Insomnia type: unspecified Qualified Code(s): G47.00 - Insomnia, unspecified (16) Methamphetamine abuse Current Visit: No Status: Acute (17) Substance induced mood disorder Current Visit: No Status: Acute (18) Weight loss Current Visit: No Status: Acute (19) Anxiety and depression Current Visit: No Status: Chronic (20) Depressive disorder Current Visit: No Status: Chronic (21) Methadone maintenance therapy patient Current Visit: No Status: Chronic - AMA Did Patient Leave Against Medical Advice: No
[2017-04-14 09:56] VITALS: BP 130/60; PULSE 100; TEMP 97.9
== END 2017-04-14 09:26 | disposition home or self-care (01) | DRG 773 ==
LOC: YASAS 13:31 → Y6N 17:14
PROVIDERS: ADMIT Internal Medicine; ATTEND Internal Medicine
PROC: HZ2ZZZZ Detoxification Services for Substance Abuse Treatment (ICD-10-PCS; principal; 2017-04-10)
DX: F11.20 Opioid dependence, uncomplicated (principal); F10.230 Alcohol dependence with withdrawal, uncomplicated; F14.20 Cocaine dependence, uncomplicated; F15.10 Other stimulant abuse, uncomplicated; F17.210 Nicotine dependence, cigarettes, uncomplicated; F41.8 Other specified anxiety disorders; F19.24 Other psychoactive substance dependence with psychoactive substance-induced mood disorder; F19.282 Other psychoactive substance dependence with psychoactive substance-induced sleep disorder; Z21 Asymptomatic human immunodeficiency virus [HIV] infection status; I10 Essential (primary) hypertension; J45.22 Mild intermittent asthma with status asthmaticus; G62.9 Polyneuropathy, unspecified; G47.00 Insomnia, unspecified; L85.3 Xerosis cutis; Z86.69 Personal history of other diseases of the nervous system and sense organs; N40.0 Benign prostatic hyperplasia without lower urinary tract symptoms; K21.9 Gastro-esophageal reflux disease without esophagitis
CPT/HCPCS: 36415; 80053; 80185; 81003; 85027; 86593; 90688; 93005; 93010

== ENCOUNTER 2017-05-20 11:03 | Inpatient (IN) | payer OTHER ==
[2017-05-20 11:52] VITALS: BMI 31.8
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
[2017-05-20] MEDS ORDERED: guaiFENesin/D-METHORPHAN HB 10 ML UNIT-DOSE CUPS PO PRN (14:18)
[2017-05-20] MEDS ORDERED: MAGNESIUM HYDROX 2400MG/30ML ORAL SUSPENSION 30 ML CUP PO PRN (14:18)
[2017-05-20] MEDS ORDERED: hydrOXYzine PAMOATE 25 MG CAPSULE (FP) PO PRN (14:18)
[2017-05-20] MEDS ORDERED: LOPERAMIDE HCL 2 MG CAPSULE PO PRN (14:18)
[2017-05-20] MEDS ORDERED: IBUPROFEN 400 MG TABLET (FP) PO PRN (14:18)
[2017-05-20] MEDS ORDERED: MENTHOL/PHENOL 1 EACH UD MM PRN (14:18)
[2017-05-20] MEDS ORDERED: MAGNESIUM CITRATE 300 ML BOTTLE PO PRN (14:18)
[2017-05-20] MEDS ORDERED: MAG HYDROX/AL HYDROX/SIMETH 30 ML UNIT-DOSE CUP PO PRN (14:18)
[2017-05-20] MEDS ORDERED: NICOTINE POLACRILEX 2 MG GUM BUC PRN (14:18)
[2017-05-20] MEDS ORDERED: P-EPHED 60MG/TRIPROLIDI 2.5MG TABLET PO PRN (14:18)
[2017-05-20] MEDS ORDERED: ACETAMINOPHEN 325 MG TABLET (FP) PO PRN (14:18)
[2017-05-20] MEDS ORDERED: ALBUTEROL SO4 18 GM HFA INHALER IH PRN ×2 (14:25→16:10)
[2017-05-20] MEDS ORDERED: ALBUTEROL SO4 0.083% IH SOL 2.5 MG/3 ML VIAL.NEB. NEB PRN (14:25)
[2017-05-20] MEDS ORDERED: METHADONE HCL 10 MG TABLET PO ONE (14:26)
[2017-05-20] MEDS ORDERED: AMMONIUM LACTATE 12% LOTION 225 GM BOTTLE TP PRN (14:33)
[2017-05-20] MEDS ORDERED: predniSONE 20 MG TABLET (UD) PO ONE (15:31)
[2017-05-20] MEDS ORDERED: APIXABAN 5 MG TABLET PO SCH (15:32)
[2017-05-20 17:22] LABS: URINE APPEARANCE CLEAR; URINE BILIRUBIN NEGATIVE (NEGATIVE); URINE BLOOD NEGATIVE (NEGATIVE); URINE COLOR YELLOW; URINE GLUCOSE (UA) NEGATIVE (NEGATIVE); URINE KETONE NEGATIVE (NEGATIVE); URINE LEUK ESTERASE TRACE (NEGATIVE); URINE NITRITE NEGATIVE (NEGATIVE); URINE PROTEIN NEGATIVE (NEGATIVE); URINE UROBILINOGEN NEGATIVE mg/dL (0.2-1.0)
[2017-05-20] MEDS ORDERED: HYDROCHLOROTHIAZIDE 25 MG TABLET (FP) PO ONE (17:30)
[2017-05-20] MEDS ORDERED: SULFAMETHOXAZOLE/TRIMETHOPRIM 800MG/160MG D.S. TABLET PO ONE (17:30)
[2017-05-20] MEDS ORDERED: PHENYTOIN NA EXTENDED 100 MG CAPSULE (FP) PO ONE (17:30)
[2017-05-20] MEDS ORDERED: amLODIPine BESYLATE 10 MG TABLET (FP) PO ONE (17:30)
[2017-05-20] MEDS ORDERED: ALBUTEROL SO4 18 GM HFA INHALER IH ONE (17:53)
[2017-05-20] MEDS: GABAPENTIN 300 MG CAPSULE (FP) PO SCH ×2 (18:12→22:02)
[2017-05-20] MEDS: ALBUTEROL SO4 2.5/IPRATROPIUM 0.5 INH SOL 3 ML VIAL.NEB. NEB PRN (18:14)
--- NOTE | 2017-05-20 19:02 | PN ---
[facility] Progress Note Note: RECEIVED NURSE CALL MEDICATION REGIMEN IN QUESTION REVIEW MAGUI DISCHARGE MEDICATION LIST ELIQUIS 10 MG BID X 7 DAYS THEN ELIQUIS 5 MG BID
[2017-05-20] MEDS: chlordiazePOXIDE HCL 25 MG CAPSULE PO PRN (19:57)
[2017-05-20 21:44] LABS: URINE LEUK ESTERASE Negative (NEGATIVE)
[2017-05-20 21:59] LABS: URINE RBC 1 /hpf (0-3); URINE WBC 5 /hpf (3-5)
[2017-05-20] MEDS ORDERED: BUDESONIDE/FORMETEROL FUMARATE 160/4.5 mcg INHALER IH SCH (22:00)
[2017-05-20] MEDS ORDERED: RANITIDINE HCL 150 MG TABLET (FP) PO SCH (22:00)
[2017-05-20] MEDS ORDERED: RALTEGRAVIR POTASSIUM 400 MG TAB PO SCH (22:00)
[2017-05-20] MEDS ORDERED: ABACAVIR SULFATE 300 MG TABLET PO SCH (22:00)
[2017-05-20] MEDS ORDERED: PHENobarbital 30 MG TABLET PO SCH (22:00)
[2017-05-20] MEDS ORDERED: GABAPENTIN 300 MG CAPSULE (FP) PO SCH (22:00)
[2017-05-20] MEDS: PHENobarbital 30 MG TABLET PO SCH (22:01)
[2017-05-20] MEDS: chlordiazePOXIDE HCL 25 MG CAPSULE PO SCH (22:01)
[2017-05-20] MEDS: RANITIDINE HCL 150 MG TABLET (FP) PO SCH (22:02)
[2017-05-20] MEDS: THIAMINE HCL 100 MG TABLET (FP) PO SCH (22:02)
[2017-05-20] MEDS: APIXABAN 5 MG TABLET PO SCH (22:02)
[2017-05-20] MEDS: BUDESONIDE/FORMETEROL FUMARATE 80/4.5 mcg INHALER IH SCH (22:03)
[2017-05-20] MEDS: CLOTRIMAZOLE 1% CREAM 15 GM TUBE TP SCH (22:03)
[2017-05-21] MEDS ORDERED: METHADONE HCL 10 MG TABLET ONE (04:40)
[2017-05-21] MEDS ORDERED: METHADONE HCL 40 MG DISPERSABLE TABLET ONE (04:40)
[2017-05-21] MEDS: GABAPENTIN 300 MG CAPSULE (FP) PO SCH ×3 (05:19→22:08)
[2017-05-21] MEDS: chlordiazePOXIDE HCL 25 MG CAPSULE PO SCH ×4 (05:19→22:07)
[2017-05-21] MEDS ORDERED: METHADONE HCL 10 MG TABLET PO SCH (06:00)
[2017-05-21] MEDS ORDERED: METHADONE 120 MG, METHADONE 10 MG PO SCH (06:00)
[2017-05-21] MEDS ORDERED: METHADONE HCL 40 MG DISPERSABLE TABLET PO SCH (06:00)
[2017-05-21] MEDS: TAMSULOSIN HCL 0.4 MG CAP.ER.24H (FP) PO SCH (08:29)
[2017-05-21] MEDS ORDERED: TAMSULOSIN HCL 0.4 MG CAP.ER.24H (FP) PO SCH (08:30)
[2017-05-21 09:53] LABS: MCH 33.5 pg (25.7-33.7); MEAN CELL VOLUME 101.7 fl (80-96); MEAN PLT VOLUME 9.3 fl (7.5-11.1); PLATELET COUNT 363 K/MM3 (134-434); RDW 13.4 % (11.9-15.9); WHITE BLOOD COUNT 5.5 K/mm3 (4.0-10.0)
[2017-05-21] MEDS ORDERED: RITONAVIR 100 MG TABLET PO SCH (10:00)
[2017-05-21] MEDS: ABACAVIR SULFATE 300 MG TABLET PO SCH ×2 (10:00→22:09)
[2017-05-21] MEDS: EMTRICITABINE 200MG/TENOFOVIR 300MG PO SCH (10:00)
[2017-05-21] MEDS ORDERED: PHENYTOIN NA EXTENDED 100 MG CAPSULE (FP) PO SCH (10:00)
[2017-05-21] MEDS ORDERED: HYDROCHLOROTHIAZIDE 25 MG TABLET (FP) PO SCH (10:00)
[2017-05-21] MEDS ORDERED: amLODIPine BESYLATE 10 MG TABLET (FP) PO SCH (10:00)
[2017-05-21] MEDS ORDERED: RALTEGRAVIR POTASSIUM 600 MG PO SCH (10:00)
[2017-05-21] MEDS ORDERED: PATIENT'S OWN MEDICATION (NON-FORMULARY) (Prednisone [Prednisone 50 Mg Tablets] 50 MG) PO SCH (10:00)
[2017-05-21] MEDS ORDERED: EMTRICITABINE 200MG/TENOFOVIR 300MG PO SCH (10:00)
[2017-05-21] MEDS ORDERED: predniSONE 20 MG TABLET (UD) PO SCH (10:00)
[2017-05-21] MEDS ORDERED: ABACAVIR SULFATE 300 MG TABLET PO SCH (10:00)
[2017-05-21] MEDS ORDERED: SULFAMETHOXAZOLE/TRIMETHOPRIM 800MG/160MG D.S. TABLET PO SCH (10:00)
[2017-05-21 10:08] LABS: ALBUMIN 3.1 g/dl (3.4-5.0); ALK PHOS 201 U/L (45-117); ANION GAP 5 (8-16); BILIRUBIN,TOTAL 0.2 mg/dL (0.2-1.0); CALCIUM 8.2 mg/dL (8.5-10.1); CO2 28 mmol/L (21-32); GLUCOSE,RANDOM 86 mg/dL (74-106); SGOT/AST 13 U/L (15-37); SGPT/ALT 30 U/L (12-78); TOT PROT 7.4 g/dl (6.4-8.2)
[2017-05-21] MEDS: PHENYTOIN NA EXTENDED 100 MG CAPSULE (FP) PO SCH (10:30)
[2017-05-21] MEDS: PREDNISONE 40 MG, PREDNISONE 10 MG PO SCH (10:31)
[2017-05-21] MEDS: PHENobarbital 30 MG TABLET PO SCH ×2 (10:31→22:08)
[2017-05-21] MEDS: RANITIDINE HCL 150 MG TABLET (FP) PO SCH ×2 (10:31→22:08)
[2017-05-21] MEDS: amLODIPine BESYLATE 10 MG TABLET (FP) PO SCH (10:31)
[2017-05-21] MEDS: HYDROCHLOROTHIAZIDE 25 MG TABLET (FP) PO SCH (10:31)
[2017-05-21] MEDS: SULFAMETHOXAZOLE/TRIMETHOPRIM 800MG/160MG D.S. TABLET PO SCH (10:31)
[2017-05-21] MEDS: APIXABAN 5 MG TABLET PO SCH ×2 (10:32→22:08)
[2017-05-21] MEDS: RALTEGRAVIR POTASSIUM 400 MG TAB PO SCH ×2 (10:32→22:09)
[2017-05-21] MEDS: NICOTINE 14 MG/24 HOURS TOPICAL PATCH TD SCH (10:33)
[2017-05-21] MEDS: PRENATAL VITAMINS W/ FOLIC ACID TABLET (FP) PO SCH (10:33)
[2017-05-21] MEDS ORDERED: SODIUM CHLORIDE NASAL SPRAY 44 ML BOTTLE NS PRN (10:43)
[2017-05-21] MEDS: CLOTRIMAZOLE 1% CREAM 15 GM TUBE TP SCH ×2 (11:03→22:10)
[2017-05-21] MEDS: BUDESONIDE/FORMETEROL FUMARATE 80/4.5 mcg INHALER IH SCH ×2 (11:03→22:07)
--- NOTE | 2017-05-21 12:03 | PN ---
[facility] CIWA - CIWA Score Nausea/Vomitin-No Nausea/No Vomiting Muscle Tremors: 4-Moderate,w/Arms Extend Anxiety: 4-Mod. Anxious/Guarded Agitation: 2 Paroxysmal Sweats: 3 Orientation: 0-Oriented Tacttile Disturbances: 2-Mild Itch/Numbness/Burn Auditory Disturbances: 2-Mild Harshness/Frighten Visual Disturbances: 1-Very Mild Sensitivity Headache: 0-None Present CIWA-Ar Total Score: 18 S Progress Note (SOAP) Subjective: Sweating, Tremors, Body Aches. Objective: PT. A & O X 3, OBSERVED AMBULATING ON UNIT. NO ACUTE DISTRESS. 05/21/17 12:01 Vital Signs Temperature 97.7 F 05/21/17 09:24 Pulse Rate 80 05/21/17 09:24 Respiratory Rate 20 05/21/17 09:24 Blood Pressure 150/87 05/21/17 09:24 O2 Sat by Pulse Oximetry (%) Laboratory Tests 05/20/17 05/21/17 05/21/17 15:00 06:07 06:07 WBC 5.5 D RBC 3.37 L Hgb 11.3 L D Hct 34.3 L MCV 101.7 H MCH 33.5 MCHC 33.0 RDW 13.4 Plt Count 363 D MPV 9.3 Sodium 141 Potassium 4.1 Chloride 108 H Carbon Dioxide 28 Anion Gap 5 L BUN 17 Creatinine 1.0 D Creat Clearance w eGFR > 60 Random Glucose 86 Calcium 8.2 L Total Bilirubin 0.2 D AST 13 L ALT 30 D Alkaline Phosphatase 201 H Total Protein 7.4 Albumin 3.1 L Urine Color Yellow Urine Appearance Clear Urine pH 5.0 Ur Specific [place] 1.019 Urine Protein Negative Urine Glucose (UA) Negative Urine Ketones Negative Urine Blood Negative Urine Nitrite Negative Urine Bilirubin Negative Urine Urobilinogen Negative Ur Leukocyte Esterase Negative Urine WBC (Auto) 5 Urine RBC (Auto) 1 Ur Epithelial Cells Rare RPR Titer 05/21/17 06:07 WBC RBC Hgb Hct MCV MCH MCHC RDW Plt Count MPV Sodium Potassium Chloride Carbon Dioxide Anion Gap BUN Creatinine Creat Clearance w eGFR Random Glucose Calcium Total Bilirubin AST ALT Alkaline Phosphatase Total Protein Albumin Urine Color Urine Appearance Urine pH Ur Specific [place] Urine Protein Urine Glucose (UA) Urine Ketones Urine Blood Urine Nitrite Urine Bilirubin Urine Urobilinogen Ur Leukocyte Esterase Urine WBC (Auto) Urine RBC (Auto) Ur Epithelial Cells RPR Titer Nonreactive LABS NOTED. Assessment: 05/21/17 12:01 WITHDRAWAL SYMPTOMS. Plan: CONTINUE DETOX. REPEAT ALK. PHOS. ON 05/23/2017 FOR ELEVATED ADMISSION LEVEL. ADVISED PATIENT TO IMMEDIATELY NOTIFY MEDICAL / NURSING STAFF SHOULD ANY UNUSUAL RESPIRATORY SYMPTOMS DEVELOP OR IF PATIENT SHOULD FEEL CONFUSED IN ANY WAY AT ANY TIME. PATIENT VERBALIZED UNDERSTANDING OF RECOMMENDATIONS.
--- NOTE | 2017-05-21 13:12 | EKG ---
Test Reason : Blood Pressure : / mmHG Vent. Rate : 080 BPM Atrial Rate : 080 BPM P-R Int : 148 ms QRS Dur : 090 ms QT Int : 392 ms P-R-T Axes : 045 011 026 degrees QTc Int : 452 ms NORMAL SINUS RHYTHM NORMAL ECG WHEN COMPARED WITH ECG OF 10-APR-2017 19:13, BORDERLINE CRITERIA FOR ANTERIOR INFARCT ARE NO LONGER PRESENT BORDERLINE CRITERIA FOR ANTEROLATERAL INFARCT ARE NO LONGER PRESENT Confirmed by KIMBERLEY CHACKO, DARNELL ([id number]) on 05/21/2017 1:12:24 PM Referred By: Confirmed By:DARNELL CHU MD
[2017-05-21] MEDS: ALBUTEROL SO4 18 GM HFA INHALER IH PRN (15:08)
[2017-05-21] MEDS: ALBUTEROL SO4 2.5/IPRATROPIUM 0.5 INH SOL 3 ML VIAL.NEB. NEB PRN (18:15)
[2017-05-21] MEDS: THIAMINE HCL 100 MG TABLET (FP) PO SCH (22:08)
[2017-05-21] MEDS: chlordiazePOXIDE HCL 25 MG CAPSULE PO PRN (23:20)
[2017-05-22] MEDS ORDERED: METHADONE HCL 40 MG DISPERSABLE TABLET ONE (05:07)
[2017-05-22] MEDS ORDERED: METHADONE HCL 10 MG TABLET ONE (05:07)
[2017-05-22] MEDS ORDERED: METHADONE HCL 40 MG DISPERSABLE TABLET PO SCH (06:00)
[2017-05-22] MEDS ORDERED: METHADONE 120 MG, METHADONE 20 MG PO SCH (06:00)
[2017-05-22] MEDS: GABAPENTIN 300 MG CAPSULE (FP) PO SCH ×3 (06:16→22:11)
[2017-05-22] MEDS: chlordiazePOXIDE HCL 25 MG CAPSULE PO SCH ×3 (06:16→17:06)
[2017-05-22] MEDS: ALBUTEROL SO4 18 GM HFA INHALER IH PRN ×2 (07:56→11:43)
[2017-05-22] MEDS: BUDESONIDE/FORMETEROL FUMARATE 80/4.5 mcg INHALER IH SCH ×2 (09:17→22:10)
[2017-05-22] MEDS: TAMSULOSIN HCL 0.4 MG CAP.ER.24H (FP) PO SCH (09:17)
[2017-05-22] MEDS: SULFAMETHOXAZOLE/TRIMETHOPRIM 800MG/160MG D.S. TABLET PO SCH (09:18)
[2017-05-22] MEDS: RALTEGRAVIR POTASSIUM 400 MG TAB PO SCH ×2 (09:18→22:11)
[2017-05-22] MEDS: ABACAVIR SULFATE 300 MG TABLET PO SCH ×2 (09:18→22:11)
[2017-05-22] MEDS: EMTRICITABINE 200MG/TENOFOVIR 300MG PO SCH (09:19)
[2017-05-22] MEDS: APIXABAN 5 MG TABLET PO SCH ×2 (09:20→22:11)
[2017-05-22] MEDS: ALBUTEROL SO4 2.5/IPRATROPIUM 0.5 INH SOL 3 ML VIAL.NEB. NEB PRN ×2 (09:33→17:07)
[2017-05-22] MEDS: PHENobarbital 30 MG TABLET PO SCH ×2 (10:33→22:11)
[2017-05-22] MEDS: PREDNISONE 40 MG, PREDNISONE 10 MG PO SCH (10:34)
[2017-05-22] MEDS: PHENYTOIN NA EXTENDED 100 MG CAPSULE (FP) PO SCH (10:34)
[2017-05-22] MEDS: amLODIPine BESYLATE 10 MG TABLET (FP) PO SCH (10:34)
[2017-05-22] MEDS: HYDROCHLOROTHIAZIDE 25 MG TABLET (FP) PO SCH (10:34)
[2017-05-22] MEDS: NICOTINE 14 MG/24 HOURS TOPICAL PATCH TD SCH (10:34)
[2017-05-22] MEDS: RANITIDINE HCL 150 MG TABLET (FP) PO SCH ×2 (10:34→22:11)
[2017-05-22] MEDS: CLOTRIMAZOLE 1% CREAM 15 GM TUBE TP SCH ×2 (10:34→22:12)
[2017-05-22] MEDS: PRENATAL VITAMINS W/ FOLIC ACID TABLET (FP) PO SCH (10:35)
--- NOTE | 2017-05-22 12:03 | PN ---
S CIWA - CIWA Score Nausea/Vomitin Muscle Tremors: 3 Anxiety: 5 Agitation: 3 Paroxysmal Sweats: No Perspiration Orientation: 0-Oriented Tacttile Disturbances: 0-None Auditory Disturbances: 0-None Visual Disturbances: 0-None Headache: 3-Moderate CIWA-Ar Total Score: 19 BHS Progress Note (SOAP) Subjective: Vomiting, Tremors, Anxious, Body Aches, Constipation, Interrupted Sleep. Objective: PT. A & O X 3, OBSERVED AMBULATING ON UNIT. NO ACUTE DISTRESS. PATIENT DENIES CHEST PAIN AND SOB. LUNG SOUNDS AUSCULTATED CLEAR AND EQUAL BILATERALLY. 05/22/17 12:01 Vital Signs Temperature 97.9 F 05/22/17 09:24 Pulse Rate 87 05/22/17 09:24 Respiratory Rate 18 05/22/17 09:24 Blood Pressure 143/89 05/22/17 09:24 O2 Sat by Pulse Oximetry (%) Laboratory Tests 05/20/17 05/21/17 05/21/17 15:00 06:07 06:07 WBC 5.5 D RBC 3.37 L Hgb 11.3 L D Hct 34.3 L MCV 101.7 H MCH 33.5 MCHC 33.0 RDW 13.4 Plt Count 363 D MPV 9.3 Sodium 141 Potassium 4.1 Chloride 108 H Carbon Dioxide 28 Anion Gap 5 L BUN 17 Creatinine 1.0 D Creat Clearance w eGFR > 60 Random Glucose 86 Calcium 8.2 L Total Bilirubin 0.2 D AST 13 L ALT 30 D Alkaline Phosphatase 201 H Total Protein 7.4 Albumin 3.1 L Urine Color Yellow Urine Appearance Clear Urine pH 5.0 Ur Specific [place] 1.019 Urine Protein Negative Urine Glucose (UA) Negative Urine Ketones Negative Urine Blood Negative Urine Nitrite Negative Urine Bilirubin Negative Urine Urobilinogen Negative Ur Leukocyte Esterase Negative Urine WBC (Auto) 5 Urine RBC (Auto) 1 Ur Epithelial Cells Rare Phenytoin Phenobarbital RPR Titer 05/21/17 05/21/17 05/21/17 06:07 06:07 08:00 WBC RBC Hgb Hct MCV MCH MCHC RDW Plt Count MPV Sodium Potassium Chloride Carbon Dioxide Anion Gap BUN Creatinine Creat Clearance w eGFR Random Glucose Calcium Total Bilirubin AST ALT Alkaline Phosphatase Total Protein Albumin Urine Color Urine Appearance Urine pH Ur Specific [place] Urine Protein Urine Glucose (UA) Urine Ketones Urine Blood Urine Nitrite Urine Bilirubin Urine Urobilinogen Ur Leukocyte Esterase Urine WBC (Auto) Urine RBC (Auto) Ur Epithelial Cells Phenytoin 11.8 D Phenobarbital 10.0 L Cancelled RPR Titer Nonreactive LABS NOTED. 05/22/17 16:19 Assessment: 05/22/17 12:01 WITHDRAWAL SYMPTOMS. Plan: CONTINUE DETOX.
[2017-05-22] MEDS: chlordiazePOXIDE HCL 25 MG CAPSULE PO PRN (14:13)
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
[2017-05-22] MEDS ORDERED: ZOLPIDEM TARTRATE 10 MG TABLET (PARK CARE ONLY) PO PRN (22:00)
[2017-05-22] MEDS: THIAMINE HCL 100 MG TABLET (FP) PO SCH (22:11)
[2017-05-22] MEDS: chlordiazePOXIDE 5 MG CAPSULE PO SCH (22:28)
[2017-05-23] MEDS ORDERED: METHADONE HCL 10 MG TABLET ONE (04:34)
[2017-05-23] MEDS ORDERED: METHADONE HCL 40 MG DISPERSABLE TABLET ONE (04:34)
[2017-05-23] MEDS: chlordiazePOXIDE 5 MG CAPSULE PO SCH ×2 (05:21→10:26)
[2017-05-23] MEDS ORDERED: METHADONE 120 MG, METHADONE 30 MG PO SCH (06:00)
[2017-05-23] MEDS ORDERED: METHADONE HCL 40 MG DISPERSABLE TABLET PO SCH (06:00)
[2017-05-23] MEDS: GABAPENTIN 300 MG CAPSULE (FP) PO SCH (07:31)
[2017-05-23] MEDS: ALBUTEROL SO4 2.5/IPRATROPIUM 0.5 INH SOL 3 ML VIAL.NEB. NEB PRN (07:33)
[2017-05-23] MEDS: ALBUTEROL SO4 18 GM HFA INHALER IH PRN (08:13)
[2017-05-23] MEDS: EMTRICITABINE 200MG/TENOFOVIR 300MG PO SCH (09:09)
[2017-05-23] MEDS: BUDESONIDE/FORMETEROL FUMARATE 80/4.5 mcg INHALER IH SCH (09:09)
[2017-05-23] MEDS: ABACAVIR SULFATE 300 MG TABLET PO SCH (09:10)
[2017-05-23] MEDS: APIXABAN 5 MG TABLET PO SCH (09:10)
[2017-05-23] MEDS: RALTEGRAVIR POTASSIUM 400 MG TAB PO SCH (09:10)
[2017-05-23] MEDS: PREDNISONE 40 MG, PREDNISONE 10 MG PO SCH (09:11)
[2017-05-23] MEDS: TAMSULOSIN HCL 0.4 MG CAP.ER.24H (FP) PO SCH (09:11)
[2017-05-23] MEDS: SULFAMETHOXAZOLE/TRIMETHOPRIM 800MG/160MG D.S. TABLET PO SCH (09:11)
[2017-05-23 09:20] VITALS: BP 138/82; PULSE 94; TEMP 96
[2017-05-23] MEDS: PHENYTOIN NA EXTENDED 100 MG CAPSULE (FP) PO SCH (10:26)
[2017-05-23] MEDS: HYDROCHLOROTHIAZIDE 25 MG TABLET (FP) PO SCH (10:26)
[2017-05-23] MEDS: RANITIDINE HCL 150 MG TABLET (FP) PO SCH (10:26)
[2017-05-23] MEDS: PRENATAL VITAMINS W/ FOLIC ACID TABLET (FP) PO SCH (10:26)
[2017-05-23] MEDS: CLOTRIMAZOLE 1% CREAM 15 GM TUBE TP SCH (10:26)
[2017-05-23] MEDS: amLODIPine BESYLATE 10 MG TABLET (FP) PO SCH (10:26)
[2017-05-23] MEDS: PHENobarbital 30 MG TABLET PO SCH (10:27)
[2017-05-23] MEDS: NICOTINE 14 MG/24 HOURS TOPICAL PATCH TD SCH (10:27)
--- NOTE | 2017-05-23 12:58 | DS ---
[facility] Detox Discharge Summary Admission Date: 05/20/17 Discharge Date: 05/23/17 - History Present History: Alcohol Dependence Additional Comments: PATIENT DOES NOT WISH TO STAY TO COMPLETE DETOX REGIMEN. RISKS OF LEAVING DETOX UNIT PRIOR TO COMPLETION OF DETOX REGIMEN EXPLAINED TO PATIENT. PATIENT ADVISED TO GO IMMEDIATELY TO NEAREST ER SHOULD ANY INTOLERABLE DETOX SYMPTOMS DEVELOP AT ANY TIME. EXAMINATION OF PATIENT'S OUTSIDE PRESCRIPTION MEDICATION LIST SHOWS THAT PRESCRIPTION FOR ELIQUIS (FOR PULMONARY EMBOLISM) AND PRESCRIPTIONS FOR PREDNISONE, VENTOLIN INHALER, AND DULERA (ASTHMA) PREVIOUSLY SENT TO PATIENT 'S PHARMACY BY DR. Andres GNA MD OF [facility]) ON 2016 FOR AFTERCARE. PRESCRIPTIONS FOR ANTIHYPERTENSIVE MEDICATIONS, ANTI- SEIZURE MEDICATION, HIV MEDICATION, AND FOR BPH SENT TO PATIENT'S PHARMACY BY DR. Karen SPRAGUE ON 05/04/2017. PATIENT ADVISED TO FOLLOW-UP WITH DIRECTOR [place] DR. Karen CRAIG ([facility]) SOON POSSIBLE FOR GENERAL MEDICAL ASSESSMENT AND FOR RECENT HISTORY OF PULMONARY EMBOLISM. PATIENT LEFT DETOX UNIT IN STABLE MEDICAL CONDITION. Pertinent Past History: Asthma, History of Seizures, HIV, MMTP, Pulmonary embolism, Neuropathy, GERD, BPH, Xerosis of Skin, HTN. - Physical Exam Results Vital Signs: Vital Signs Temperature 96.0 F L 05/23/17 09:19 Pulse Rate 94 H 05/23/17 09:19 Respiratory Rate 18 05/23/17 09:19 Blood Pressure 138/82 05/23/17 09:19 O2 Sat by Pulse Oximetry (%) Pertinent Admission Physical Exam Findings: WITHDRAWAL SYMPTOMS. Laboratory Tests 05/20/17 05/21/17 05/21/17 15:00 06:07 06:07 WBC 5.5 D RBC 3.37 L Hgb 11.3 L D Hct 34.3 L MCV 101.7 H MCH 33.5 MCHC 33.0 RDW 13.4 Plt Count 363 D MPV 9.3 Sodium 141 Potassium 4.1 Chloride 108 H Carbon Dioxide 28 Anion Gap 5 L BUN 17 Creatinine 1.0 D Creat Clearance w eGFR > 60 Random Glucose 86 Calcium 8.2 L Total Bilirubin 0.2 D AST 13 L ALT 30 D Alkaline Phosphatase 201 H Total Protein 7.4 Albumin 3.1 L Urine Color Yellow Urine Appearance Clear Urine pH 5.0 Ur Specific [place] 1.019 Urine Protein Negative Urine Glucose (UA) Negative Urine Ketones Negative Urine Blood Negative Urine Nitrite Negative Urine Bilirubin Negative Urine Urobilinogen Negative Ur Leukocyte Esterase Negative Urine WBC (Auto) 5 Urine RBC (Auto) 1 Ur Epithelial Cells Rare Phenytoin Phenobarbital RPR Titer 05/21/17 05/21/17 05/21/17 06:07 06:07 08:00 WBC RBC Hgb Hct MCV MCH MCHC RDW Plt Count MPV Sodium Potassium Chloride Carbon Dioxide Anion Gap BUN Creatinine Creat Clearance w eGFR Random Glucose Calcium Total Bilirubin AST ALT Alkaline Phosphatase Total Protein Albumin Urine Color Urine Appearance Urine pH Ur Specific [place] Urine Protein Urine Glucose (UA) Urine Ketones Urine Blood Urine Nitrite Urine Bilirubin Urine Urobilinogen Ur Leukocyte Esterase Urine WBC (Auto) Urine RBC (Auto) Ur Epithelial Cells Phenytoin 11.8 D Phenobarbital 10.0 L Cancelled RPR Titer Nonreactive 05/23/17 08:00 WBC RBC Hgb Hct MCV MCH MCHC RDW Plt Count MPV Sodium Potassium Chloride Carbon Dioxide Anion Gap BUN Creatinine Creat Clearance w eGFR Random Glucose Calcium Total Bilirubin AST ALT Alkaline Phosphatase 166 H Total Protein Albumin Urine Color Urine Appearance Urine pH Ur Specific [place] Urine Protein Urine Glucose (UA) Urine Ketones Urine Blood Urine Nitrite Urine Bilirubin Urine Urobilinogen Ur Leukocyte Esterase Urine WBC (Auto) Urine RBC (Auto) Ur Epithelial Cells Phenytoin Phenobarbital RPR Titer LABS NOTED. - Treatment Hospital Course: Detoxed Safely - Medication Discharge Medications: Ambulatory Orders Albuterol Sulfate Inhaler - [Ventolin HFA Inhaler -] 2 inh PO Q4H PRN 09/10/16 Gabapentin [Neurontin -] 300 mg PO Q8H 09/10/16 Phenobarbital - 30 mg PO BID 09/10/16 Sulfamethoxazole/Trimethoprim [Bactrim DS -] 1 tab PO DAILY 09/10/16 Emtricitabine/Tenofovir [Truvada -] 1 tab PO DAILY 12/24/16 Phenytoin Na Extended [Dilantin -] 300 mg PO DAILY 12/24/16 Ranitidine [Zantac -] 150 mg PO BID 12/24/16 Ritonavir [Norvir -] 100 mg PO DAILY 12/24/16 Amlodipine Besylate [Norvasc -] 10 mg PO DAILY 04/10/17 Hydrochlorothiazide [Hctz -] 25 mg PO DAILY 04/10/17 Tamsulosin HCl [Flomax] 0.4 mg PO DAILY 04/10/17 Fluoxetine HCl [Prozac] 20 mg PO DAILY #30 capsule 04/11/17 Abacavir Sulfate [Ziagen -] 300 mg PO DAILY 05/20/17 Apixaban [Eliquis -] 10 mg PO Q12H 05/20/17 Prednisone [Prednisone 50 MG TABLETS] 50 mg PO DAILY 05/20/17 Raltegravir Potassium [Isentress Hd] 600 mg PO DAILY 05/20/17 Salmeterol/Fluticasone [Advair 250Mcg/50Mcg] 1 inh PO BID 05/20/17 - Diagnosis (1) Pulmonary embolism Status: Acute Qualifiers: Pulmonary embolism type: other Chronicity: acute Acute cor pulmonale presence: without acute cor pulmonale Qualified Code(s): I26.99 - Other pulmonary embolism without acute cor pulmonale (2) Xerosis of skin Status: Chronic (3) GERD (gastroesophageal reflux disease) Status: Chronic Qualifiers: Esophagitis presence: without esophagitis Qualified Code(s): K21.9 - Gastro -esophageal reflux disease without esophagitis (4) HIV (human immunodeficiency virus infection) Status: Chronic (5) Methadone maintenance therapy patient Status: Chronic (6) Alcohol dependence with uncomplicated withdrawal Status: Acute (7) Essential hypertension Status: Chronic (8) Seizure Status: Chronic (9) Nicotine dependence Status: Acute Qualifiers: Nicotine product type: cigarettes Substance use status: uncomplicated Qualified Code(s): F17.210 - Nicotine dependence, cigarettes, uncomplicated (10) Insomnia Status: Acute Qualifiers: Insomnia type: unspecified Qualified Code(s): G47.00 - Insomnia, unspecified (11) Opioid dependence on agonist therapy Status: Chronic (12) Asthma Status: Chronic Qualifiers: Asthma severity: moderate Asthma persistence: unspecified Asthma complication type: uncomplicated Qualified Code(s): J45.909 - Unspecified asthma, uncomplicated (13) BPH (benign prostatic hyperplasia) Status: Chronic Qualifiers: Lower urinary tract symptom presence: symptoms present Lower urinary tract symptom detail: unspecified Qualified Code(s): N40.1 - Benign prostatic hyperplasia with lower urinary tract symptoms (14) Cocaine dependence Status: Chronic Qualifiers: Substance use status: uncomplicated Qualified Code(s): F14.20 - Cocaine dependence, uncomplicated (15) Neuropathy Status: Chronic (16) Substance induced mood disorder Status: Acute - AMA Did Patient Leave Against Medical Advice: Yes (PATIENT DID NOT WISH TO STAY TO COMPLETE DETOX REGIMEN.)
[2017-05-23] MEDS ORDERED: chlordiazePOXIDE HCL 10 MG CAPSULE PO SCH (23:00)
== END 2017-05-23 11:58 | disposition left against medical advice (07) | DRG 770 ==
LOC: YASAS 11:03 → UNDOADMIN 13:05 → Y6N 13:05 → Y3N 14:58
PROVIDERS: ADMIT Internal Medicine; ATTEND Internal Medicine
PROC: HZ2ZZZZ Detoxification Services for Substance Abuse Treatment (ICD-10-PCS; principal; 2017-05-20)
DX: F10.230 Alcohol dependence with withdrawal, uncomplicated (principal); F11.20 Opioid dependence, uncomplicated; F14.20 Cocaine dependence, uncomplicated; F17.210 Nicotine dependence, cigarettes, uncomplicated; F19.24 Other psychoactive substance dependence with psychoactive substance-induced mood disorder; I10 Essential (primary) hypertension; I26.99 Other pulmonary embolism without acute cor pulmonale; L85.3 Xerosis cutis; K21.9 Gastro-esophageal reflux disease without esophagitis; Z21 Asymptomatic human immunodeficiency virus [HIV] infection status; G40.909 Epilepsy, unspecified, not intractable, without status epilepticus; G47.00 Insomnia, unspecified; G62.9 Polyneuropathy, unspecified; J45.909 Unspecified asthma, uncomplicated; N40.0 Benign prostatic hyperplasia without lower urinary tract symptoms; Z79.01 Long term (current) use of anticoagulants; Z91.013 Allergy to seafood
CPT/HCPCS: 36415; 71020-TC; 80053; 80184; 80185; 81003; 81015; 84075; 85027; 86593; 93005; 93010; 94640

== ENCOUNTER 2018-11-24 14:51 | Inpatient (IN) | payer OTHER ==
[2018-11-24 16:46] VITALS: BMI 28.1
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
[2018-11-24] MEDS ORDERED: chlordiazePOXIDE HCL 25 MG CAPSULE PO PRN (17:23)
[2018-11-24] MEDS ORDERED: ONDANSETRON *ODT* 4 MG TABLET SL PRN (17:23)
[2018-11-24] MEDS ORDERED: hydrOXYzine PAMOATE 25 MG CAPSULE (FP) PO PRN (17:23)
[2018-11-24] MEDS ORDERED: IBUPROFEN 400 MG TABLET (FP) PO PRN (17:23)
[2018-11-24] MEDS ORDERED: BISMUTH SUBSALICYLATE 524 MG/30 ML UD PO PRN (17:23)
[2018-11-24] MEDS ORDERED: MAGNESIUM HYDROX 2400MG/30ML ORAL SUSPENSION 30 ML CUP PO PRN (17:23)
[2018-11-24] MEDS ORDERED: NALOXONE HCL 0.4 MG/ML VIAL IVPUSH PRN (17:23)
[2018-11-24] MEDS ORDERED: NICOTINE POLACRILEX 2 MG GUM BUC PRN (17:23)
[2018-11-24] MEDS ORDERED: MAG HYDROX/AL HYDROX/SIMETH 30 ML UNIT-DOSE CUP PO PRN (17:23)
[2018-11-24] MEDS ORDERED: MELATONIN 5 MG TABLETS PO PRN (17:23)
[2018-11-24] MEDS ORDERED: METHOCARBAMOL 500 MG TABLET PO PRN (17:23)
[2018-11-24] MEDS ORDERED: MAGNESIUM CITRATE 300 ML BOTTLE PO PRN (17:23)
[2018-11-24] MEDS ORDERED: ACETAMINOPHEN 325 MG TABLET (FP) PO PRN ×2 (17:23)
[2018-11-24] MEDS ORDERED: MENTHOL/PHENOL 1 EACH UD MM PRN (17:23)
[2018-11-24] MEDS ORDERED: ALBUTEROL SO4 8 GM HFA INHALER IH PRN (17:33)
[2018-11-24] MEDS ORDERED: chlordiazePOXIDE HCL 25 MG CAPSULE PO ONE (18:45)
[2018-11-24] MEDS ORDERED: METHADONE HCL 10 MG TABLET (FOR DETOX USE ONLY) PO ONE (18:45)
[2018-11-24] MEDS: cloNIDine HCL 0.1 MG TABLET PO PRN (18:56)
[2018-11-24] MEDS ORDERED: TUBERCULIN PPD 5 TU/0.1ML VIAL ID ONE (19:01)
[2018-11-24] MEDS: chlordiazePOXIDE HCL 25 MG CAPSULE PO SCH (22:37)
[2018-11-24] MEDS: GABAPENTIN 300 MG CAPSULE (FP) PO SCH (22:37)
[2018-11-24] MEDS: APIXABAN 5 MG TABLET PO SCH (22:38)
[2018-11-24] MEDS: THIAMINE HCL 100 MG TABLET (FP) PO SCH (22:38)
[2018-11-24] MEDS: RANITIDINE HCL 150 MG TABLET (FP) PO SCH (22:40)
[2018-11-24] MEDS: levETIRAcetam XR 750 MG TAB PO SCH (23:15)
[2018-11-24] MEDS: NYSTATIN 500,000 UNITS/5 ML SUSPENSION PO SCH (23:27)
[2018-11-25] MEDS: chlordiazePOXIDE HCL 25 MG CAPSULE PO SCH ×4 (06:22→22:17)
[2018-11-25] MEDS: GABAPENTIN 300 MG CAPSULE (FP) PO SCH ×3 (06:23→22:17)
[2018-11-25] MEDS: NYSTATIN 500,000 UNITS/5 ML SUSPENSION PO SCH ×4 (06:26→23:12)
--- NOTE | 2018-11-25 08:52 | PN ---
S CIWA - CIWA Score Nausea/Vomitin Muscle Tremors: 2 Anxiety: 2 Agitation: 2 Paroxysmal Sweats: 1-Minimal Palms Moist Orientation: 0-Oriented Tacttile Disturbances: 1-Very Mild Itch/Numbness Auditory Disturbances: 1-Very Mild Visual Disturbances: 0-None Headache: 2-Mild CIWA-Ar Total Score: 13 BHS COWS - Scale Resting Pulse: 0= [place] 80 or Below Sweatin= Chills/Flushing Restless Observation: 1= Difficult to Sit Still Pupil Size: 1= Pupils >than Normal Bone or Joint Aches: 2= Severe Diffuse Aches Runny Nose/ Eye Tearin= Runny Nose/Eyes GI Upset > 30mins: 2= Nausea/Diarrhea Tremor Observation of Outstretched Hands: 2= Slight Tremor Visible Yawning Observation: 1= 1-2x During Session Anxiety or Irritability: 2=Irritable/Anxious Goose Flesh Skin: 0=Smooth Skin COWS Score: 14 S Progress Note (SOAP) Subjective: alert,irritable,anxious,interrupted sleep,tremor,pain in the body and back Objective: 11/25/18 08:51 Vital Signs Temperature 98.1 F 11/25/18 06:00 Pulse Rate 65 11/25/18 06:00 Respiratory Rate 18 11/25/18 06:00 Blood Pressure 142/92 11/25/18 06:00 O2 Sat by Pulse Oximetry (%) 11/25/18 08:52 labs pending Assessment: 11/25/18 08:52 withdrawal symptom Plan: continue detox
[2018-11-25] MEDS ORDERED: METHADONE HCL 5 MG TABLET (FOR DETOX USE ONLY) ONE (09:24)
[2018-11-25] MEDS ORDERED: METHADONE HCL 10 MG TABLET (FOR DETOX USE ONLY) ONE (09:25)
[2018-11-25] MEDS ORDERED: NICOTINE 21 MG/24 HOURS TOPICAL PATCH TD SCH (10:00)
[2018-11-25] MEDS ORDERED: HYDROCHLOROTHIAZIDE 25 MG TABLET (FP) PO SCH (10:00)
[2018-11-25] MEDS ORDERED: amLODIPine BESYLATE 10 MG TABLET (FP) PO SCH (10:00)
[2018-11-25] MEDS ORDERED: METHADONE (DETOX) 20 MG, METHADONE (DETOX) 5 MG PO ONE (10:00)
[2018-11-25] MEDS ORDERED: PRENATAL VITAMINS W/ FOLIC ACID TABLET (FP) PO SCH (10:00)
[2018-11-25] MEDS ORDERED: TAMSULOSIN HCL 0.4 MG CAP PO SCH (10:00)
[2018-11-25] MEDS ORDERED: RITONAVIR 100 MG TABLET PO SCH (10:00)
[2018-11-25] MEDS ORDERED: EMTRICITABINE 200MG/TENOFOVIR 300MG PO SCH (10:00)
[2018-11-25] MEDS: RANITIDINE HCL 150 MG TABLET (FP) PO SCH ×2 (10:09→22:17)
[2018-11-25] MEDS: APIXABAN 5 MG TABLET PO SCH ×2 (10:09→22:16)
[2018-11-25] MEDS: levETIRAcetam XR 750 MG TAB PO SCH ×2 (10:10→22:16)
--- NOTE | 2018-11-25 10:27 | EKG ---
Test Reason : Blood Pressure : / mmHG Vent. Rate : 062 BPM Atrial Rate : 062 BPM P-R Int : 154 ms QRS Dur : 094 ms QT Int : 444 ms P-R-T Axes : 058 004 023 degrees QTc Int : 450 ms NORMAL SINUS RHYTHM NORMAL ECG WHEN COMPARED WITH ECG OF 20-MAY-2017 17:59, NO SIGNIFICANT CHANGE WAS FOUND Confirmed by CAM DAVE MD ([id number]) on 11/25/2018 10:27:00 AM Referred By: Confirmed By:CAM DAVE MD
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
[2018-11-25 13:14] LABS: HEMATOCRIT 35.1 % (35.4-49); HEMOGLOBIN 11.7 GM/dL (11.7-16.9); MCH 33.8 pg (25.7-33.7); MCHC 33.2 g/dl (32.0-35.9); MEAN CELL VOLUME 101.7 fl (80-96); MEAN PLT VOLUME 8.9 fl (7.5-11.1); RBC 3.46 M/mm3 (4.00-5.60); RDW 13.2 % (11.9-15.9); WHITE BLOOD COUNT 2.5 K/mm3 (4.0-10.0)
[2018-11-25 13:31] LABS: ALBUMIN 2.6 g/dl (3.4-5.0); BILIRUBIN,TOTAL 1.4 mg/dL (0.2-1); BLOOD UREA NITROGEN 10.2 mg/dL (7-18); CALCIUM 8.1 mg/dL (8.5-10.1); CREATININE 0.8 mg/dL (0.55-1.3); POTASSIUM 3.3 mmol/L (3.5-5.1); TOT PROT 6.7 g/dl (6.4-8.2)
[2018-11-25 13:42] LABS: PLATELET COUNT 217 K/MM3 (134-434)
[2018-11-25] MEDS ORDERED: POTASSIUM CHLORIDE TABS 20 MEQ TABLET.ER (FP) PO ONE (17:17)
[2018-11-25] MEDS: THIAMINE HCL 100 MG TABLET (FP) PO SCH (22:17)
[2018-11-25] MEDS: cloNIDine HCL 0.1 MG TABLET PO PRN (22:17)
[2018-11-26] MEDS ORDERED: chlordiazePOXIDE HCL 25 MG CAPSULE PO SCH (05:00)
[2018-11-26] MEDS: NYSTATIN 500,000 UNITS/5 ML SUSPENSION PO SCH (05:40)
[2018-11-26] MEDS: GABAPENTIN 300 MG CAPSULE (FP) PO SCH (05:40)
[2018-11-26 06:21] VITALS: BP 146/90; PULSE 67; TEMP 98.9
--- NOTE | 2018-11-26 08:43 | PN ---
S CIWA - CIWA Score Nausea/Vomitin Muscle Tremors: 2 Anxiety: 2 Agitation: 2 Paroxysmal Sweats: No Perspiration Orientation: 0-Oriented Tacttile Disturbances: 1-Very Mild Itch/Numbness Auditory Disturbances: 1-Very Mild Visual Disturbances: 0-None Headache: 2-Mild CIWA-Ar Total Score: 12 BHS COWS - Scale Resting Pulse: 0= [place] 80 or Below Sweatin= No chills or [place] Restless Observation: 1= Difficult to Sit Still Pupil Size: 1= Pupils >than Normal Bone or Joint Aches: 1= Mild Discomfort Runny Nose/ Eye Tearin= Nasal Congestion GI Upset > 30mins: 1= Stomach Cramp Tremor Observation of Outstretched Hands: 1= Tremor [place], Not Seen Yawning Observation: 1= 1-2x During Session Anxiety or Irritability: 1=Feels Anxious/Irritable Goose Flesh Skin: 0=Smooth Skin COWS Score: 8 S Progress Note (SOAP) Subjective: alert,irritable pain in the body,anxious,interrupted sleep Objective: 11/26/18 08:40 Vital Signs Temperature 98.9 F 11/26/18 06:20 Pulse Rate 67 11/26/18 06:20 Respiratory Rate 18 11/26/18 06:20 Blood Pressure 146/90 11/26/18 06:20 O2 Sat by Pulse Oximetry (%) 11/26/18 08:41 Laboratory Last Values WBC 2.5 K/mm3 (4.0-10.0) L 11/25/18 08:00 RBC 3.46 M/mm3 (4.00-5.60) L 11/25/18 08:00 Hgb 11.7 GM/dL (11.7-16.9) 11/25/18 08:00 Hct 35.1 % (35.4-49) L 11/25/18 08:00 MCV 101.7 fl (80-96) H 11/25/18 08:00 MCH 33.8 pg (25.7-33.7) H 11/25/18 08:00 MCHC 33.2 g/dl (32.0-35.9) 11/25/18 08:00 RDW 13.2 % (11.9-15.9) 11/25/18 08:00 Plt Count 217 K/MM3 (134-434) D 11/25/18 08:00 MPV 8.9 fl (7.5-11.1) 11/25/18 08:00 Sodium 142 mmol/L (136-145) 11/25/18 08:00 Potassium 3.3 mmol/L (3.5-5.1) L 11/25/18 08:00 Chloride 105 mmol/L (98-107) 11/25/18 08:00 Carbon Dioxide 32 mmol/L (21-32) 11/25/18 08:00 Anion Gap 5 MMOL/L (8-16) L 11/25/18 08:00 BUN 10.2 mg/dL (7-18) 11/25/18 08:00 Creatinine 0.8 mg/dL (0.55-1.3) 11/25/18 08:00 Est GFR (CKD-EPI)AfAm 119.04 11/25/18 08:00 Est GFR (CKD-EPI)NonAf 102.71 11/25/18 08:00 Random Glucose 81 mg/dL (74-106) 11/25/18 08:00 Calcium 8.1 mg/dL (8.5-10.1) L 11/25/18 08:00 Total Bilirubin 1.4 mg/dL (0.2-1) H 11/25/18 08:00 AST 32 U/L (15-37) 11/25/18 08:00 ALT 24 U/L (13-61) 11/25/18 08:00 Alkaline Phosphatase 187 U/L (45-117) H 11/25/18 08:00 Total Protein 6.7 g/dl (6.4-8.2) 11/25/18 08:00 Albumin 2.6 g/dl (3.4-5.0) L 11/25/18 08:00 RPR Titer Nonreactive (NONREACTIVE) 11/25/18 08:00 Assessment: 11/26/18 08:42 withdrawal symptom Plan: continue detox hypokalemia,k dur 20 meq po daily for 3 days,leukopenia,wbc 2,500 , will repeat cbc,cmp in am
--- NOTE | 2018-11-26 08:55 | PN ---
[facility] Progress Note Note: patient did not want to complete treatment,all attempts to convince patient to stay with no avail,high risks of relapsing explained,patient left AMA,advise to call 911 if not feeling well and follow up with Medical provider for medical problem , left the unit in stable condition
--- NOTE | 2018-11-26 09:00 | DS ---
[facility] Detox Discharge Summary Admission Date: 11/24/18 Discharge Date: 11/26/18 - History Present History: Alcohol Dependence, Opioid Dependence Additional Comments: patient signed release AMA Pertinent Past History: asthma bph history of pulmonary embolism essential hypertension gerd hiv neuropathy seizure - Physical Exam Results Vital Signs: Vital Signs Temperature 98.9 F 11/26/18 06:20 Pulse Rate 67 11/26/18 06:20 Respiratory Rate 18 11/26/18 06:20 Blood Pressure 146/90 11/26/18 06:20 O2 Sat by Pulse Oximetry (%) Pertinent Admission Physical Exam Findings: withdrawal signs and symptom Laboratory Last Values WBC 2.5 K/mm3 (4.0-10.0) L 11/25/18 08:00 RBC 3.46 M/mm3 (4.00-5.60) L 11/25/18 08:00 Hgb 11.7 GM/dL (11.7-16.9) 11/25/18 08:00 Hct 35.1 % (35.4-49) L 11/25/18 08:00 MCV 101.7 fl (80-96) H 11/25/18 08:00 MCH 33.8 pg (25.7-33.7) H 11/25/18 08:00 MCHC 33.2 g/dl (32.0-35.9) 11/25/18 08:00 RDW 13.2 % (11.9-15.9) 11/25/18 08:00 Plt Count 217 K/MM3 (134-434) D 11/25/18 08:00 MPV 8.9 fl (7.5-11.1) 11/25/18 08:00 Sodium 142 mmol/L (136-145) 11/25/18 08:00 Potassium 3.3 mmol/L (3.5-5.1) L 11/25/18 08:00 Chloride 105 mmol/L (98-107) 11/25/18 08:00 Carbon Dioxide 32 mmol/L (21-32) 11/25/18 08:00 Anion Gap 5 MMOL/L (8-16) L 11/25/18 08:00 BUN 10.2 mg/dL (7-18) 11/25/18 08:00 Creatinine 0.8 mg/dL (0.55-1.3) 11/25/18 08:00 Est GFR (CKD-EPI)AfAm 119.04 11/25/18 08:00 Est GFR (CKD-EPI)NonAf 102.71 11/25/18 08:00 Random Glucose 81 mg/dL (74-106) 11/25/18 08:00 Calcium 8.1 mg/dL (8.5-10.1) L 11/25/18 08:00 Total Bilirubin 1.4 mg/dL (0.2-1) H 11/25/18 08:00 AST 32 U/L (15-37) 11/25/18 08:00 ALT 24 U/L (13-61) 11/25/18 08:00 Alkaline Phosphatase 187 U/L (45-117) H 11/25/18 08:00 Total Protein 6.7 g/dl (6.4-8.2) 11/25/18 08:00 Albumin 2.6 g/dl (3.4-5.0) L 11/25/18 08:00 RPR Titer Nonreactive (NONREACTIVE) 11/25/18 08:00 - Medication Discharge Medications: Ambulatory Orders Albuterol Sulfate Inhaler - [Ventolin HFA Inhaler -] 2 inh PO Q4H PRN 09/10/16 Gabapentin [Neurontin -] 300 mg PO Q8H 09/10/16 Sulfamethoxazole/Trimethoprim [Bactrim DS -] 1 tab PO DAILY 09/10/16 Emtricitabine/Tenofovir [Truvada -] 1 tab PO DAILY 12/24/16 Ranitidine [Zantac -] 150 mg PO BID 12/24/16 Ritonavir [Norvir -] 100 mg PO DAILY 12/24/16 Amlodipine Besylate [Norvasc -] 10 mg PO DAILY 04/10/17 Hydrochlorothiazide [Hctz -] 25 mg PO DAILY 04/10/17 Tamsulosin HCl [Flomax] 0.4 mg PO DAILY 04/10/17 Abacavir Sulfate [Ziagen -] 300 mg PO DAILY 05/20/17 Apixaban [Eliquis -] 10 mg PO Q12H 05/20/17 Prednisone [Prednisone 50 MG TABLETS] 50 mg PO DAILY 05/20/17 Raltegravir Potassium [Isentress Hd] 600 mg PO DAILY 05/20/17 Salmeterol/Fluticasone [Advair 250Mcg/50Mcg] 1 inh PO BID 05/20/17 Fluoxetine HCl [Prozac] 20 mg PO BID 11/24/18 levETIRAcetam [Keppra Xr -] 750 mg PO BID 11/24/18 - Diagnosis (1) Opioid dependence with withdrawal Current Visit: Yes Status: Acute (2) Thrush, oral Current Visit: Yes Status: Acute (3) Alcohol dependence with uncomplicated withdrawal Current Visit: Yes Status: Chronic (4) Asthma Current Visit: Yes Status: Chronic Qualifiers: Asthma severity: moderate Asthma persistence: unspecified Asthma complication type: uncomplicated Qualified Code(s): J45.909 - Unspecified asthma, uncomplicated (5) BPH (benign prostatic hyperplasia) Current Visit: Yes Status: Chronic Qualifiers: Lower urinary tract symptom presence: symptoms present Lower urinary tract symptom detail: unspecified Qualified Code(s): N40.1 - Benign prostatic hyperplasia with lower urinary tract symptoms (6) Essential hypertension Current Visit: Yes Status: Chronic (7) GERD (gastroesophageal reflux disease) Current Visit: Yes Status: Chronic Qualifiers: Esophagitis presence: without esophagitis Qualified Code(s): K21.9 - Gastro -esophageal reflux disease without esophagitis (8) HIV (human immunodeficiency virus infection) Current Visit: Yes Status: Chronic (9) Neuropathy Current Visit: Yes Status: Chronic (10) Nicotine dependence Current Visit: Yes Status: Chronic Qualifiers: Nicotine product type: cigarettes Substance use status: uncomplicated Qualified Code(s): F17.210 - Nicotine dependence, cigarettes, uncomplicated (11) Pulmonary embolism Current Visit: Yes Status: Chronic Qualifiers: Pulmonary embolism type: other Chronicity: acute Acute cor pulmonale presence: without acute cor pulmonale Qualified Code(s): I26.99 - Other pulmonary embolism without acute cor pulmonale (12) Seizure Current Visit: Yes Status: Chronic (13) Insomnia Current Visit: No Status: Acute Qualifiers: Insomnia type: unspecified Qualified Code(s): G47.00 - Insomnia, unspecified (14) Hypokalemia Current Visit: Yes Status: Acute - AMA Did Patient Leave Against Medical Advice: Yes
[2018-11-26] MEDS ORDERED: METHADONE HCL 10 MG TABLET (FOR DETOX USE ONLY) PO ONE (10:00)
[2018-11-26] MEDS ORDERED: POTASSIUM CHLORIDE TABS 20 MEQ TABLET.ER (FP) PO SCH (10:00)
[2018-11-27] MEDS ORDERED: chlordiazePOXIDE HCL 10 MG CAPSULE PO PRN
[2018-11-27] MEDS ORDERED: chlordiazePOXIDE HCL 10 MG CAPSULE PO SCH (05:00)
[2018-11-27] MEDS ORDERED: METHADONE (DETOX) 10 MG, METHADONE (DETOX) 5 MG PO ONE (10:00)
[2018-11-28] MEDS ORDERED: chlordiazePOXIDE HCL 10 MG CAPSULE PO SCH (05:00)
[2018-11-28] MEDS ORDERED: METHADONE HCL 10 MG TABLET (FOR DETOX USE ONLY) PO ONE (10:00)
[2018-11-29] MEDS ORDERED: chlordiazePOXIDE HCL 10 MG CAPSULE PO ONE (05:00)
[2018-11-29] MEDS ORDERED: METHADONE HCL 5 MG TABLET (FOR DETOX USE ONLY) PO ONE (06:00)
== END 2018-11-26 08:40 | disposition left against medical advice (07) | DRG 770 ==
LOC: YASAS 14:51 → Y6N 18:19
PROVIDERS: ADMIT Surgery; ATTEND Surgery
PROC: HZ2ZZZZ Detoxification Services for Substance Abuse Treatment (ICD-10-PCS; principal; 2018-11-24)
DX: F11.23 Opioid dependence with withdrawal (principal); F10.230 Alcohol dependence with withdrawal, uncomplicated; F17.210 Nicotine dependence, cigarettes, uncomplicated; Z21 Asymptomatic human immunodeficiency virus [HIV] infection status; B37.0 Candidal stomatitis; G62.9 Polyneuropathy, unspecified; I10 Essential (primary) hypertension; E87.6 Hypokalemia; G40.909 Epilepsy, unspecified, not intractable, without status epilepticus; Z86.711 Personal history of pulmonary embolism; Z79.01 Long term (current) use of anticoagulants
CPT/HCPCS: 36415; 80053; 85027; 86593; 93005; 93010; J0735